=== PATIENT | female | born 1935 | race Caucasian/White ===

== ENCOUNTER 2021-02-20 07:49 | Inpatient (IN) | payer MEDICARE, BC ==
[2021-02-20] MEDS ORDERED: Denosumab 60 MG/1 ML Syringe SUBCUT SCH (14:00)
[2021-02-20] MEDS ORDERED: Warfarin Sliding Scale PO SCH (14:00)
[2021-02-20] MEDS: Acetaminophen 650 MG Tab.ER PO PRN (15:51)
--- NOTE | 2021-02-20 16:51 | PCM.HP.2 ---
H&P History of Present Illness - General Date of Service: 02/20/21 Admit Problem/Dx: Admission Diagnosis/Problem Admission Diagnosis/Problem Debility Source of Information: Patient, Family History Limitations: Reports: No Limitations - History of Present Illness Initial Comments - Free Text/Narative: This is an 85-year-old female that had a fall on the , sustained a C1 f racture and a basal skull fracture. She with some admitted to [facility] and was discharged yesterday. She is here for physical therapy. Her pain is uncontrolled. She still complains of some constipation. She has a history of DM 2,A. fib on long-term anticoagulation, hypothyroidism and multiple falls over the last winter. 7 Pain Score (Numeric/FACES): 7 - Related Data Allergies/Adverse Reactions: Allergies Allergy/AdvReac Type Severity Reaction Status Date / Time Iodinated Contrast Media Allergy Itching Verified 10/15/16 12:03 Sulfa (Sulfonamide Allergy Rash Verified 10/15/16 12:03 Antibiotics) Home Medications: Home Meds Levothyroxine [Synthroid] 50 mcg PO MOTUWETHFRSA@0600 09/09/15 [History] metFORMIN [Glucophage] 1,000 mg PO BIDMEALS 09/09/15 [History] Diltiazem [Cardizem CD] 240 mg PO DAILY #30 cap.cd 10/02/15 [Rx] Acetaminophen [Tylenol Arthritis] 650 mg PO Q4H PRN 02/20/21 [History] Cholecalciferol (Vitamin D3) [Vitamin D3] 400 unit PO BEDTIME 02/20/21 [History] Cyanocobalamin (Vitamin B-12) [B-12] 1,000 mcg PO DAILY 02/20/21 [History] Denosumab [Prolia] 60 mg SUBCUT Q180D 02/20/21 [History] Famotidine 20 mg PO BID 02/20/21 [History] Levothyroxine [Synthroid] 100 mcg PO MONROE@0600 02/20/21 [History] Losartan [Cozaar] 100 mg PO DAILY 02/20/21 [History] Magnesium Chloride [Slow-Mag] 1 tab PO BEDTIME 02/20/21 [History] Pravastatin Sodium 20 mg PO MOWEFR 02/20/21 [History] Triamcinolone Acetonide [Triamcinolone Acetonide 0.1% Crm] 1 applic TOP BID 02/20/21 [History] Warfarin Sliding Scale [Coumadin Sliding Scale] 2.5 - 5 mg PO DAILY 02/20/21 [History] Past Medical History HEENT History: Reports: Cataract Cardiovascular History: Reports: Afib, Hypertension Respiratory History: Reports: Asthma, Bronchitis, Recurrent Gastrointestinal History: Reports: GERD Genitourinary History: Reports: None, Urinary Incontinence [employer] 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: Musculoskeletal History: Reports: Fracture Other Musculoskeletal History: L ankle fx in past, Neurological History: Reports: Migraines, TIA, Other (See Below) Other Neuro History: once had a seizure years ago Psychiatric History: Reports: Depression Endocrine/Metabolic History: Reports: Diabetes, Type II, Hypothyroidism, Obesity/BMI 30+ Hematologic History: Reports: Blood Transfusion(s), Iron Deficiency Immunologic History: Reports: None Oncologic (Cancer) History: Reports: None Dermatologic History: Reports: None - Infectious Disease History Infectious Disease History: Reports: Shingles - Past Surgical History Head Surgeries/Procedures: Reports: None Cardiovascular Surgical History: Reports: None Respiratory Surgical History: Reports: None GI Surgical History: Reports: Appendectomy, Cholecystectomy, Colonoscopy Female Surgical History: Reports: None Neurological Surgical History: Reports: None Musculoskeletal Surgical History: Reports: Arthroscopic Knee, Knee Replacement Other Musculoskeletal Surgeries/Procedures:: R knee scope & rplmt, Social & Family History - Family History HEENT: Reports: Cataract Cardiac: Reports: Blood Clots/VTE/DVT OBGYN: Reports: Neurological: Reports: CVA Psychiatric: Reports: Depression Endocrine/Metabolic: Reports: Diabetes, type II, Hypothyroidism Oncologic: Reports: Breast, Lung, Skin - Tobacco Use Tobacco Use Status *Q: Never Tobacco User - Caffeine Use Caffeine Use: Reports: Coffee - Recreational Drug Use Recreational Drug Use: No H&P Review of Systems - Review of Systems: Review Of Systems: Comprehensive ROS is negative, except as noted in HPI. Exam - Exam Exam: See Below - Vital Signs Vital Signs: Last Vital Signs Temp 98.3 F 02/20/21 13:45 Pulse 79 02/20/21 13:45 Resp 20 02/20/21 13:45 BP 121/66 02/20/21 13:45 Pulse Ox 98 02/20/21 13:45 Weight: 86.908 kg - Exam General: Alert, Oriented HEENT: PERRLA Neck: Supple Lungs: Clear to Auscultation Cardiovascular: Regular Rate GI/Abdominal Exam: Normal Bowel Sounds, Soft, Non-Tender Rectal (Female) Exam: Deferred Extremities: Leg Pain. No: Pedal Edema Skin: Warm Neurological: Cranial Nerves Intact Neuro Extensive - Mental Status: Alert, Oriented x3 - Patient Data Lab Results Last 24 hrs: Laboratory Results - last 24 hr 02/20/21 Range/Units 15:15 PT 10.9 (9.0-11.1) sec INR 1.01 (1.00-1.24) Sepsis Event Note - Evaluation Sepsis Screening Result: No Definite Risk - Focused Exam Vital Signs: Vital Signs Temp Pulse Resp BP Pulse Ox 02/20/21 13:45 98.3 F 79 20 121/66 98 02/20/21 12:54 98.3 F 79 20 121/66 98 - Problem List (1) Weakness SNOMED Code(s): 60870787 ICD Code: R53.1 - WEAKNESS Status: Acute Current Visit: Yes (2) Fracture cervical vertebra-closed Status: Acute Current Visit: Yes Qualifiers: Cervical vertebra fracture level: C1 Fracture healing: with routine healing (3) A-fib SNOMED Code(s): 61689242 ICD Code: I48.91 - UNSPECIFIED ATRIAL FIBRILLATION Status: Acute Priority: High Current Visit: No Qualifiers: Atrial fibrillation type: paroxysmal Qualified Code(s): I48.0 - Paroxysmal atrial fibrillation (4) Diabetes type 2, controlled SNOMED Code(s): 10783244, 634979636 ICD Code: E11.9 - TYPE 2 DIABETES MELLITUS WITHOUT COMPLICATIONS Status: Chronic Current Visit: No Qualifiers: Diabetes mellitus 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 insulin use: without care home use (5) Hypertension associated with diabetes SNOMED Code(s): 96618578 ICD Code: E11.59 - TYPE 2 DIABETES MELLITUS WITH OTH CIRCULATORY COMPLICATIONS; I10 - ESSENTIAL (PRIMARY) HYPERTENSION Status: Chronic Current Visit: No (6) Hypothyroidism SNOMED Code(s): 11824676 ICD Code: E03.9 - HYPOTHYROIDISM, UNSPECIFIED Status: Chronic Current Visit: No Qualifiers: Hypothyroidism type: acquired Qualified Code(s): E03.9 - Hypothyroidism, unspecified Problem List Initiated/Reviewed/Updated: Yes Orders Last 24hrs: Active Orders 24 hr Category Date Time Status Patient Status [ADT] Routine ADT 02/20/21 13:45 Active Blood Glucose Check, Bedside [RC] TIDMEALS Care 02/20/21 16:49 Ordered Height and Weight [RC] WEEKLY Care 02/20/21 13:45 Active Oxygen Therapy [RC] PRN Care 02/20/21 13:45 Active Up With Assistance [RC] ASDIRECTED Care 02/20/21 13:45 Active VTE/DVT Education [RC] Per Unit Routine Care 02/20/21 13:45 Active Vital Signs [RC] DAILY Care 02/20/21 13:45 Active OT Evaluation and Treatment [CONS] Routine Cons 02/20/21 13:45 Active PT Evaluation and Treatment [CONS] Routine Cons 02/20/21 13:45 Active Consistent Carbohydrate Diet [DIET] Diet 02/20/21 Dinner Active INR,PT,PROTHROMBIN TIME [COAG] Routine Lab 02/24/21 06:00 Ordered Acetaminophen [Tylenol Arthritis Pain] Med 02/20/21 13:48 Active 650 mg PO Q4H PRN Cholecalciferol (Vitamin D3) [Vitamin D3] Med 02/20/21 21:00 Active 25 mcg PO BEDTIME Cyanocobalamin (Vitamin B12) [Vitamin B12] Med 02/21/21 09:00 Active 1,000 mcg PO DAILY Denosumab [Prolia] Med 02/20/21 14:00 Pending 60 mg SUBCUT Q180D Diltiazem [Dilacor XR] Med 02/21/21 09:00 Active 240 mg PO DAILY Famotidine [Pepcid] Med 02/20/21 21:00 Active 20 mg PO BID Levothyroxine [Synthroid] Med 02/22/21 06:00 Active 100 mcg PO MONROE@0600 Levothyroxine [Synthroid] Med 02/21/21 06:00 Active 50 mcg PO MOTUWETHFRSA@0600 Losartan [Cozaar] Med 02/21/21 09:00 Active 100 mg PO DAILY Magnesium Chloride [Mag-64] Med 02/20/21 21:00 Active 64 mg PO BEDTIME Pravastatin [Pravachol] Med 02/20/21 21:00 Active 20 mg PO MoWeFr@2100 Triamcinolone Acetonide [Triamcinolone Acetonide 0.1% Med 02/20/21 21:00 Active Crm] 0 gm TOP BID Warfarin Sliding Scale [Coumadin Sliding Scale] Med 02/20/21 14:00 Pending 1 each PO ASDIRECTED Warfarin [Coumadin] Med 02/21/21 16:00 Active 2.5 mg PO 1600 Warfarin [Coumadin] Med 02/23/21 16:00 Once 5 mg PO ONETIME ONE bisacodyL [Dulcolax] Med 02/20/21 16:49 Ordered 10 mg PO DAILY PRN metFORMIN [Glucophage] Med 02/20/21 18:00 Active 1,000 mg PO BIDMEALS oxyCODONE Med 02/20/21 16:49 Ordered 5 mg PO Q8H PRN Code Status [Resuscitation Status] Routine Resus Stat 02/20/21 16:49 Ordered Medication Orders Acetaminophen (Acetaminophen 650 Mg Tab.Er) 650 mg PO Q4H PRN PRN Reason: Pain Last Admin: 02/20/21 15:51 Dose: 650 mg Documented by: ZEKE Cholecalciferol (Cholecalciferol (Vitamin D3) 25 Mcg Tab) 25 mcg PO BEDTIME [facility] Cyanocobalamin (Cyanocobalamin (Vitamin B12) 1,000 Mcg Tab) 1,000 mcg PO DAILY [facility] Denosumab (Denosumab 60 Mg/1 Ml Syringe) 60 mg SUBCUT Q180D [facility] Diltiazem HCl (Diltiazem 240 Mg Cap.Er) 240 mg PO DAILY [facility] Famotidine (Famotidine 20 Mg Tab) 20 mg PO BID [facility] Levothyroxine Sodium (Levothyroxine 50 Mcg Tab) 50 mcg PO MOTUWETHFRSA@0600 [facility] Levothyroxine Sodium (Levothyroxine 100 Mcg Tab) 100 mcg PO MONROE@0600 [facility] Losartan Potassium (Losartan 100 Mg Tab) 100 mg PO DAILY [facility] Magnesium Chloride (Magnesium Chloride 64 Mg Tab.Er) 64 mg PO BEDTIME [facility] Metformin HCl (Metformin 1,000 Mg Tab) 1,000 mg PO BIDMEALS [facility] Pravastatin Sodium (Pravastatin 20 Mg Tab) 20 mg PO MoWeFr@2100 [facility] Triamcinolone Acetonide (Triamcinolone Acetonide 0.1% Crm 15 Gm Tube) 0 gm TOP BID [facility] Warfarin Sodium (Warfarin Sliding Scale) 1 each PO ASDIRECTED [facility] Warfarin Sodium (Warfarin 5 Mg Tab) 5 mg PO ONETIME ONE Stop: 02/23/21 16:01 Warfarin Sodium (Warfarin 2.5 Mg Tab) 2.5 mg PO 1600 [facility] Stop: 02/22/21 16:01 Assessment/Plan Comment:: Admit to [facility]. Start therapy. Control pain with oral narcotics. SSI for glycemic control
[2021-02-20] MEDS: Bisacodyl 5 MG Tab PO PRN (17:57)
[2021-02-20] MEDS: metFORMIN 1,000 MG Tab PO SCH (17:58)
[2021-02-20] MEDS: Famotidine 20 MG Tab PO SCH (21:44)
[2021-02-20] MEDS: Pravastatin 20 MG Tab PO SCH (21:44)
[2021-02-20] MEDS: Magnesium Chloride 64 MG Tab.ER PO SCH (21:44)
[2021-02-20] MEDS: Triamcinolone Acetonide 0.1% Crm 15 GM Tube TOP SCH (21:45)
[2021-02-20] MEDS: Cholecalciferol (Vitamin D3) 25 MCG Tab PO SCH (21:46)
[2021-02-21] MEDS: Levothyroxine 50 MCG Tab PO SCH (06:46)
[2021-02-21] MEDS: metFORMIN 1,000 MG Tab PO SCH ×2 (08:06→17:04)
[2021-02-21] MEDS: Losartan 100 MG Tab PO SCH (08:07)
[2021-02-21] MEDS: Diltiazem 240 MG Cap.ER PO SCH (08:08)
[2021-02-21] MEDS: Triamcinolone Acetonide 0.1% Crm 15 GM Tube TOP SCH ×2 (08:08→20:24)
[2021-02-21] MEDS: Famotidine 20 MG Tab PO SCH ×2 (08:08→20:23)
[2021-02-21] MEDS: Cyanocobalamin (Vitamin B12) 1,000 MCG Tab PO SCH (08:10)
[2021-02-21] MEDS: Bisacodyl 5 MG Tab PO PRN (08:15)
[2021-02-21] MEDS ORDERED: Warfarin Sliding Scale PO SCH (09:00)
[2021-02-21] MEDS: Acetaminophen 650 MG Tab.ER PO PRN (11:00)
[2021-02-21] MEDS: Ondansetron 4 MG Tab.DIS PO PRN (12:24)
[2021-02-21] MEDS: Warfarin 2.5 MG Tab PO SCH (16:22)
[2021-02-21] MEDS: Magnesium Chloride 64 MG Tab.ER PO SCH (20:23)
[2021-02-21] MEDS: Cholecalciferol (Vitamin D3) 25 MCG Tab PO SCH (20:24)
[2021-02-22] MEDS: Acetaminophen 650 MG Tab.ER PO PRN ×2 (02:45→10:01)
[2021-02-22] MEDS: Levothyroxine 100 MCG Tab PO SCH (06:29)
[2021-02-22] MEDS: metFORMIN 1,000 MG Tab PO SCH ×2 (08:25→18:50)
[2021-02-22] MEDS: Losartan 100 MG Tab PO SCH (08:26)
[2021-02-22] MEDS: Famotidine 20 MG Tab PO SCH ×2 (08:26→20:02)
[2021-02-22] MEDS: Diltiazem 240 MG Cap.ER PO SCH (08:26)
[2021-02-22] MEDS: Triamcinolone Acetonide 0.1% Crm 15 GM Tube TOP SCH ×2 (08:27→20:03)
[2021-02-22] MEDS: Cyanocobalamin (Vitamin B12) 1,000 MCG Tab PO SCH (08:28)
[2021-02-22] MEDS: Warfarin 2.5 MG Tab PO SCH (15:49)
[2021-02-22] MEDS: Magnesium Chloride 64 MG Tab.ER PO SCH (20:02)
[2021-02-22] MEDS: Cholecalciferol (Vitamin D3) 25 MCG Tab PO SCH (20:05)
[2021-02-23] MEDS: Acetaminophen 650 MG Tab.ER PO PRN ×2 (02:09→20:30)
[2021-02-23] MEDS: Levothyroxine 50 MCG Tab PO SCH (06:18)
[2021-02-23] MEDS: metFORMIN 1,000 MG Tab PO SCH ×2 (08:28→17:12)
[2021-02-23] MEDS: Losartan 100 MG Tab PO SCH (08:29)
[2021-02-23] MEDS: Famotidine 20 MG Tab PO SCH ×2 (08:30→20:27)
[2021-02-23] MEDS: Cyanocobalamin (Vitamin B12) 1,000 MCG Tab PO SCH (08:30)
[2021-02-23] MEDS: Diltiazem 240 MG Cap.ER PO SCH (08:30)
[2021-02-23] MEDS: Triamcinolone Acetonide 0.1% Crm 15 GM Tube TOP SCH ×2 (08:33→20:28)
[2021-02-23] MEDS: oxyCODONE 5 MG Tab PO PRN ×2 (13:16→23:24)
[2021-02-23] MEDS ORDERED: Warfarin 5 MG Tab PO ONE (16:00)
[2021-02-23] MEDS: Pravastatin 20 MG Tab PO SCH (20:27)
[2021-02-23] MEDS: Magnesium Chloride 64 MG Tab.ER PO SCH (20:27)
[2021-02-23] MEDS: Cholecalciferol (Vitamin D3) 25 MCG Tab PO SCH (20:29)
[2021-02-24] MEDS: Levothyroxine 50 MCG Tab PO SCH (05:27)
[2021-02-24] MEDS: Acetaminophen 650 MG Tab.ER PO PRN (05:27)
[2021-02-24] MEDS: Triamcinolone Acetonide 0.1% Crm 15 GM Tube TOP SCH ×2 (08:08→20:26)
[2021-02-24] MEDS: metFORMIN 1,000 MG Tab PO SCH ×2 (08:09→17:35)
[2021-02-24] MEDS: Losartan 100 MG Tab PO SCH (08:10)
[2021-02-24] MEDS: Famotidine 20 MG Tab PO SCH ×2 (08:10→20:25)
[2021-02-24] MEDS: Diltiazem 240 MG Cap.ER PO SCH (08:10)
[2021-02-24] MEDS: Cyanocobalamin (Vitamin B12) 1,000 MCG Tab PO SCH (08:10)
[2021-02-24] MEDS: Warfarin 5 MG Tab PO SCH (16:10)
[2021-02-24] MEDS: Magnesium Chloride 64 MG Tab.ER PO SCH (20:25)
[2021-02-24] MEDS: Cholecalciferol (Vitamin D3) 25 MCG Tab PO SCH (20:26)
[2021-02-25] MEDS: Levothyroxine 50 MCG Tab PO SCH (06:26)
[2021-02-25] MEDS: Losartan 100 MG Tab PO SCH (08:35)
[2021-02-25] MEDS: Diltiazem 240 MG Cap.ER PO SCH (08:35)
[2021-02-25] MEDS: Famotidine 20 MG Tab PO SCH ×2 (08:36→20:09)
[2021-02-25] MEDS: Cyanocobalamin (Vitamin B12) 1,000 MCG Tab PO SCH (08:37)
[2021-02-25] MEDS: metFORMIN 1,000 MG Tab PO SCH ×2 (08:39→17:09)
[2021-02-25] MEDS: Triamcinolone Acetonide 0.1% Crm 15 GM Tube TOP SCH ×2 (08:39→20:10)
[2021-02-25] MEDS: Ondansetron 4 MG Tab.DIS PO PRN (11:14)
[2021-02-25] MEDS: Warfarin 5 MG Tab PO SCH (17:06)
[2021-02-25] MEDS: Pravastatin 20 MG Tab PO SCH (20:09)
[2021-02-25] MEDS: Magnesium Chloride 64 MG Tab.ER PO SCH (20:09)
[2021-02-25] MEDS: Cholecalciferol (Vitamin D3) 25 MCG Tab PO SCH (20:10)
[2021-02-26] MEDS: Levothyroxine 50 MCG Tab PO SCH (06:34)
[2021-02-26] MEDS: Famotidine 20 MG Tab PO SCH ×2 (08:45→20:50)
[2021-02-26] MEDS: Cyanocobalamin (Vitamin B12) 1,000 MCG Tab PO SCH (08:46)
[2021-02-26] MEDS: metFORMIN 1,000 MG Tab PO SCH ×2 (08:46→17:19)
[2021-02-26] MEDS: Losartan 100 MG Tab PO SCH (08:46)
[2021-02-26] MEDS: Triamcinolone Acetonide 0.1% Crm 15 GM Tube TOP SCH ×2 (08:46→20:51)
[2021-02-26] MEDS: Diltiazem 240 MG Cap.ER PO SCH (08:46)
[2021-02-26] MEDS: Acetaminophen 650 MG Tab.ER PO PRN ×2 (14:20→20:51)
[2021-02-26] MEDS: Warfarin 5 MG Tab PO SCH (16:35)
[2021-02-26] MEDS: Magnesium Chloride 64 MG Tab.ER PO SCH (20:50)
[2021-02-26] MEDS: Cholecalciferol (Vitamin D3) 25 MCG Tab PO SCH (20:52)
[2021-02-27] MEDS: Levothyroxine 50 MCG Tab PO SCH (06:05)
[2021-02-27] MEDS: metFORMIN 1,000 MG Tab PO SCH ×2 (08:25→18:18)
[2021-02-27] MEDS: Famotidine 20 MG Tab PO SCH ×2 (08:32→20:47)
[2021-02-27] MEDS: Diltiazem 240 MG Cap.ER PO SCH (08:33)
[2021-02-27] MEDS: Losartan 100 MG Tab PO SCH (08:33)
[2021-02-27] MEDS: Cyanocobalamin (Vitamin B12) 1,000 MCG Tab PO SCH (08:33)
[2021-02-27] MEDS: Triamcinolone Acetonide 0.1% Crm 15 GM Tube TOP SCH ×2 (08:33→20:48)
[2021-02-27] MEDS ORDERED: Warfarin 2.5 MG Tab PO SCH (16:00)
[2021-02-27] MEDS: Magnesium Chloride 64 MG Tab.ER PO SCH (20:47)
[2021-02-27] MEDS: Pravastatin 20 MG Tab PO SCH (20:48)
[2021-02-27] MEDS: Cholecalciferol (Vitamin D3) 25 MCG Tab PO SCH (20:49)
[2021-02-28] MEDS: Levothyroxine 50 MCG Tab PO SCH (05:08)
[2021-02-28] MEDS: Famotidine 20 MG Tab PO SCH ×2 (09:13→21:03)
[2021-02-28] MEDS: Losartan 100 MG Tab PO SCH (09:13)
[2021-02-28] MEDS: Diltiazem 240 MG Cap.ER PO SCH (09:13)
[2021-02-28] MEDS: Cyanocobalamin (Vitamin B12) 1,000 MCG Tab PO SCH (09:13)
[2021-02-28] MEDS: metFORMIN 1,000 MG Tab PO SCH ×2 (09:14→17:42)
[2021-02-28] MEDS: Triamcinolone Acetonide 0.1% Crm 15 GM Tube TOP SCH ×2 (09:15→21:04)
[2021-02-28] MEDS: Warfarin 5 MG Tab PO SCH (17:42)
[2021-02-28] MEDS: Cholecalciferol (Vitamin D3) 25 MCG Tab PO SCH (21:03)
[2021-02-28] MEDS: Magnesium Chloride 64 MG Tab.ER PO SCH (21:03)
[2021-03-01] MEDS: Levothyroxine 100 MCG Tab PO SCH (05:16)
[2021-03-01] MEDS: Acetaminophen 650 MG Tab.ER PO PRN ×2 (06:29→20:27)
[2021-03-01] MEDS: metFORMIN 1,000 MG Tab PO SCH ×2 (08:43→17:24)
[2021-03-01] MEDS: Losartan 100 MG Tab PO SCH (08:44)
[2021-03-01] MEDS: Diltiazem 240 MG Cap.ER PO SCH (08:44)
[2021-03-01] MEDS: Famotidine 20 MG Tab PO SCH ×2 (08:44→20:26)
[2021-03-01] MEDS: Cyanocobalamin (Vitamin B12) 1,000 MCG Tab PO SCH (08:45)
[2021-03-01] MEDS: Triamcinolone Acetonide 0.1% Crm 15 GM Tube TOP SCH ×2 (08:45→20:26)
[2021-03-01] MEDS ORDERED: Warfarin 2 MG Tab PO ONE (16:00)
[2021-03-01] MEDS: Magnesium Chloride 64 MG Tab.ER PO SCH (20:25)
[2021-03-01] MEDS: Cholecalciferol (Vitamin D3) 25 MCG Tab PO SCH (20:27)
[2021-03-02] MEDS: Levothyroxine 50 MCG Tab PO SCH (05:04)
[2021-03-02] MEDS: Triamcinolone Acetonide 0.1% Crm 15 GM Tube TOP SCH ×2 (08:28→21:19)
[2021-03-02] MEDS: Diltiazem 240 MG Cap.ER PO SCH (08:29)
[2021-03-02] MEDS: metFORMIN 1,000 MG Tab PO SCH ×2 (08:29→17:41)
[2021-03-02] MEDS: Cyanocobalamin (Vitamin B12) 1,000 MCG Tab PO SCH (08:29)
[2021-03-02] MEDS: Losartan 100 MG Tab PO SCH (08:29)
[2021-03-02] MEDS: Famotidine 20 MG Tab PO SCH ×2 (08:29→21:18)
--- NOTE | 2021-03-02 09:31 | PCM.PN ---
- General Info Date of Service: 03/02/21 Admission Dx/Problem (Free Text): Patient is doing well. She has her pain is controlled on her back. She has no chest pain, shortness breath, fevers or chills. - Patient Data Vitals - Most Recent: Last Vital Signs Temp 96.9 F 03/02/21 08:00 Pulse 91 03/02/21 08:00 Resp 16 03/02/21 08:00 BP 127/69 03/02/21 08:29 Pulse Ox 99 03/02/21 08:00 Orthostatic Blood Pressure [ 96/57 Standing] Weight - Most Recent: 187 lb Lab Results Last 24 Hours: Laboratory Results - last 24 hr 03/01/21 03/01/21 03/02/21 Range/Units 11:25 17:22 06:13 PT (9.0-11.1) sec INR (1.00-1.24) POC Glucose 161 H 107 102 (80-116) mg/dL 03/02/21 Range/Units 06:25 PT 35.6 H* (9.0-11.1) sec INR 3.59 H (1.00-1.24) POC Glucose (80-116) mg/dL Med Orders - Current: Current Medications Acetaminophen (Acetaminophen 650 Mg Tab.Er) 650 mg PO Q4H PRN PRN Reason: Pain Last Admin: 03/01/21 20:27 Dose: 650 mg Documented by: Bisacodyl (Bisacodyl 5 Mg Tab) 10 mg PO DAILY PRN PRN Reason: Constipation Last Admin: 02/21/21 08:15 Dose: 10 mg Documented by: Cholecalciferol (Cholecalciferol (Vitamin D3) 25 Mcg Tab) 25 mcg PO BEDTIME [facility] Last Admin: 03/01/21 20:27 Dose: 25 mcg Documented by: Cyanocobalamin (Cyanocobalamin (Vitamin B12) 1,000 Mcg Tab) 1,000 mcg PO DAILY [facility] Last Admin: 03/02/21 08:29 Dose: 1,000 mcg Documented by: Diltiazem HCl (Diltiazem 240 Mg Cap.Er) 240 mg PO DAILY [facility] Last Admin: 03/02/21 08:29 Dose: 240 mg Documented by: Famotidine (Famotidine 20 Mg Tab) 20 mg PO BID [facility] Last Admin: 03/02/21 08:29 Dose: 20 mg Documented by: Levothyroxine Sodium (Levothyroxine 50 Mcg Tab) 50 mcg PO MOTUWETHFRSA@0600 [facility] Last Admin: 03/02/21 05:04 Dose: 50 mcg Documented by: Levothyroxine Sodium (Levothyroxine 100 Mcg Tab) 100 mcg PO MONROE@0600 [facility] Last Admin: 03/01/21 05:16 Dose: 100 mcg Documented by: Losartan Potassium (Losartan 100 Mg Tab) 100 mg PO DAILY [facility] Last Admin: 03/02/21 08:29 Dose: 100 mg Documented by: Magnesium Chloride (Magnesium Chloride 64 Mg Tab.Er) 64 mg PO BEDTIME [facility] Last Admin: 03/01/21 20:25 Dose: 64 mg Documented by: Metformin HCl (Metformin 1,000 Mg Tab) 1,000 mg PO BIDMEALS [facility] Last Admin: 03/02/21 08:29 Dose: 1,000 mg Documented by: Ondansetron HCl (Ondansetron 4 Mg Tab.Dis) 4 mg PO Q8H PRN PRN Reason: Nausea Last Admin: 02/25/21 11:14 Dose: 4 mg Documented by: Pravastatin Sodium (Pravastatin 20 Mg Tab) 20 mg PO MoWeFr@2100 [facility] Last Admin: 02/27/21 20:48 Dose: 20 mg Documented by: Triamcinolone Acetonide (Triamcinolone Acetonide 0.1% Crm 15 Gm Tube) 0 gm TOP BID [facility] Last Admin: 03/02/21 08:28 Dose: Not Given Documented by: Warfarin Sodium (Warfarin Sliding Scale) 1 each PO ASDIRECTED [facility] Discontinued Medications Denosumab (Denosumab 60 Mg/1 Ml Syringe) 60 mg SUBCUT Q180D [facility] Oxycodone HCl (Oxycodone 5 Mg Tab) 5 mg PO Q8H PRN PRN Reason: Breakthrough Pain Last Admin: 02/23/21 23:24 Dose: 5 mg Documented by: Warfarin Sodium (Warfarin 5 Mg Tab) 5 mg PO ONETIME ONE Stop: 02/23/21 16:01 Last Admin: 02/23/21 16:06 Dose: 5 mg Documented by: Warfarin Sodium (Warfarin 2.5 Mg Tab) 2.5 mg PO 1600 [facility] Stop: 02/22/21 16:01 Last Admin: 02/22/21 15:49 Dose: 2.5 mg Documented by: Warfarin Sodium (Warfarin 5 Mg Tab) 5 mg PO DAILY@1600 [facility] Last Admin: 02/25/21 17:06 Dose: 5 mg Documented by: Warfarin Sodium (Warfarin 5 Mg Tab) 5 mg PO SuTuThSa@1600 [facility] Last Admin: 02/28/21 17:42 Dose: 5 mg Documented by: Warfarin Sodium (Warfarin 2.5 Mg Tab) 2.5 mg PO MoWeFr@1600 [facility] Last Admin: 02/27/21 16:26 Dose: 2.5 mg Documented by: Warfarin Sodium (Warfarin 2 Mg Tab) 4 mg PO ONETIME ONE Stop: 03/01/21 16:01 Warfarin Sodium (Warfarin 1 Mg Tab) Confirm Administered Dose 4 mg .ROUTE .STK- MED ONE Stop: 03/01/21 15:51 Last Admin: 03/01/21 15:53 Dose: Not Given Documented by: Warfarin Sodium (Warfarin 1 Mg Tab) 4 mg PO ONETIME ONE Stop: 03/01/21 16:01 Last Admin: 03/01/21 15:57 Dose: 4 mg Documented by: - Exam General: Alert, Oriented Neck: Other (Hard collar in place on the neck) Lungs: Clear to Auscultation, Normal Respiratory Effort Cardiovascular: Regular Rate, Regular Rhythm - Patient Data Lab Results Last 24 hrs: Laboratory Results - last 24 hr 03/01/21 03/01/21 03/02/21 Range/Units 11:25 17:22 06:13 PT (9.0-11.1) sec INR (1.00-1.24) POC Glucose 161 H 107 102 (80-116) mg/dL 03/02/21 Range/Units 06:25 PT 35.6 H* (9.0-11.1) sec INR 3.59 H (1.00-1.24) POC Glucose (80-116) mg/dL Sepsis Event Note - Evaluation Sepsis Screening Result: No Definite Risk - Focused Exam Vital Signs: Vital Signs Temp Pulse Resp BP BP Pulse Ox 03/02/21 08:29 127/69 03/02/21 08:00 96.9 F 91 16 127/69 99 - Problem List & Annotations (1) Fracture cervical vertebra-closed Status: Acute Current Visit: Yes Qualifiers: Cervical vertebra fracture level: C1 Fracture healing: with routine healing (2) Weakness SNOMED Code(s): 50167423 Code(s): R53.1 - WEAKNESS Status: Acute Current Visit: Yes - Problem List Review Problem List Initiated/Reviewed/Updated: Yes - My Orders Last 24 Hours: My Active Orders 03/03/21 09:23 INR,PT,PROTHROMBIN TIME [COAG] Routine - Plan Plan:: Continue current care. l
[2021-03-02] MEDS: Acetaminophen 650 MG Tab.ER PO PRN ×3 (09:35→21:20)
[2021-03-02] MEDS: Magnesium Chloride 64 MG Tab.ER PO SCH (21:18)
[2021-03-02] MEDS: Pravastatin 20 MG Tab PO SCH (21:19)
[2021-03-02] MEDS: Cholecalciferol (Vitamin D3) 25 MCG Tab PO SCH (21:20)
[2021-03-03] MEDS: Levothyroxine 50 MCG Tab PO SCH (05:50)
[2021-03-03] MEDS: metFORMIN 1,000 MG Tab PO SCH ×2 (08:00→17:09)
[2021-03-03] MEDS: Cyanocobalamin (Vitamin B12) 1,000 MCG Tab PO SCH (08:00)
[2021-03-03] MEDS: Triamcinolone Acetonide 0.1% Crm 15 GM Tube TOP SCH ×2 (08:00→21:17)
[2021-03-03] MEDS: Diltiazem 240 MG Cap.ER PO SCH (08:00)
[2021-03-03] MEDS: Losartan 100 MG Tab PO SCH (08:00)
[2021-03-03] MEDS: Famotidine 20 MG Tab PO SCH ×2 (08:00→21:16)
[2021-03-03] MEDS: Magnesium Chloride 64 MG Tab.ER PO SCH (21:16)
[2021-03-03] MEDS: Cholecalciferol (Vitamin D3) 25 MCG Tab PO SCH (21:17)
[2021-03-04] MEDS: Acetaminophen 650 MG Tab.ER PO PRN ×2 (02:37→23:30)
[2021-03-04] MEDS: Levothyroxine 50 MCG Tab PO SCH (05:51)
[2021-03-04] MEDS: Diltiazem 240 MG Cap.ER PO SCH (08:00)
[2021-03-04] MEDS: Triamcinolone Acetonide 0.1% Crm 15 GM Tube TOP SCH ×2 (08:00→20:03)
[2021-03-04] MEDS: metFORMIN 1,000 MG Tab PO SCH ×2 (08:00→17:35)
[2021-03-04] MEDS: Famotidine 20 MG Tab PO SCH ×2 (08:00→20:03)
[2021-03-04] MEDS: Cyanocobalamin (Vitamin B12) 1,000 MCG Tab PO SCH (08:01)
[2021-03-04] MEDS: Losartan 100 MG Tab PO SCH (08:01)
[2021-03-04] MEDS: Warfarin 2.5 MG Tab PO SCH (15:48)
[2021-03-04] MEDS: Pravastatin 20 MG Tab PO SCH (20:03)
[2021-03-04] MEDS: Magnesium Chloride 64 MG Tab.ER PO SCH (20:03)
[2021-03-04] MEDS: Cholecalciferol (Vitamin D3) 25 MCG Tab PO SCH (20:03)
[2021-03-05] MEDS: Levothyroxine 50 MCG Tab PO SCH (05:04)
[2021-03-05] MEDS ORDERED: HYDROcodone/Ibuprofen 7.5-200 MG Tab PO PRN (08:58)
[2021-03-05] MEDS: Triamcinolone Acetonide 0.1% Crm 15 GM Tube TOP SCH ×2 (09:03→20:12)
[2021-03-05] MEDS: metFORMIN 1,000 MG Tab PO SCH ×2 (09:04→17:53)
[2021-03-05] MEDS: Famotidine 20 MG Tab PO SCH ×2 (09:05→20:11)
[2021-03-05] MEDS: Losartan 100 MG Tab PO SCH (09:05)
[2021-03-05] MEDS: Diltiazem 240 MG Cap.ER PO SCH (09:05)
[2021-03-05] MEDS: Cyanocobalamin (Vitamin B12) 1,000 MCG Tab PO SCH (09:06)
[2021-03-05] MEDS: Acetaminophen 650 MG Tab.ER PO PRN (13:20)
[2021-03-05] MEDS: Warfarin 2.5 MG Tab PO SCH (16:51)
[2021-03-05] MEDS: Magnesium Chloride 64 MG Tab.ER PO SCH (20:11)
[2021-03-05] MEDS: Cholecalciferol (Vitamin D3) 25 MCG Tab PO SCH (20:12)
[2021-03-06] MEDS: Levothyroxine 50 MCG Tab PO SCH (05:41)
[2021-03-06] MEDS: Losartan 100 MG Tab PO SCH (08:10)
[2021-03-06] MEDS: metFORMIN 1,000 MG Tab PO SCH ×2 (08:10→17:45)
[2021-03-06] MEDS: Diltiazem 240 MG Cap.ER PO SCH (08:10)
[2021-03-06] MEDS: Famotidine 20 MG Tab PO SCH ×2 (08:11→20:37)
[2021-03-06] MEDS: Cyanocobalamin (Vitamin B12) 1,000 MCG Tab PO SCH (08:11)
[2021-03-06] MEDS: Triamcinolone Acetonide 0.1% Crm 15 GM Tube TOP SCH ×2 (08:11→20:36)
[2021-03-06] MEDS ORDERED: HYDROcodone/Ibuprofen 7.5-200 MG Tab PO ONE (09:00)
--- NOTE | 2021-03-06 11:13 | PN ---
DATE SEEN: 03/06/2021 HISTORY: Lima is an 85-year-old woman who sustained a fall at her home on approximately February 03, 2021. She was brought to [facility] in [place] where she was found to have a C1 cervical fracture with minimal displacement and a basilar skull fracture. She was placed in a cervical collar, treated conservatively, and was discharged for admission to swing bed at [facility] on 02/17. Ms. Duvall is examined in her room today at [facility]. She is up in a chair, very alert, comfortable, sitting. She is a good historian. PHYSICAL EXAMINATION: VITAL SIGNS: Blood pressure 136/70, pulse 92 and regular, respirations normal, temperature 98. SKIN: Shows a dressing over her left chin. This was removed revealing a 2 x 6 cm large open area full-thickness skin filled with clot. There is no inflammation, purulence, or sign of infection. This was redressed with gauze and ACEwrap. NECK: She is in a cervical collar. LUNGS: Clear. HEART: Irregular, in atrial fib. ABDOMEN: Soft. EXTREMITIES: Showed no edema at the ankles. NEUROLOGIC: Motor exam appeared symmetric. ASSESSMENT: 1. Cervical and basilar skull fractures from fall on 02/03, healing. 2. Traumatic full-thickness skin ulcer, left chin, clean. 3. Chronic atrial fibrillation, on anticoagulation. 4. Chronic hypothyroidism. 5. History of type 2 diabetes. 6. Hyperlipidemia. 7. Palliative care measures. PLAN: Ms. Duvall has a followup appointment with Neurosurgery at [facility] today, then will return here for further recuperation. Her plans are to be discharged to [facility] once she has regained adequate strength and mobility. /[id number] GUERITA/GOLDEN
[2021-03-06] MEDS ORDERED: Warfarin 2.5 MG Tab PO ONE (16:00)
[2021-03-06] MEDS: Cholecalciferol (Vitamin D3) 25 MCG Tab PO SCH (20:37)
[2021-03-06] MEDS: Magnesium Chloride 64 MG Tab.ER PO SCH (20:37)
[2021-03-06] MEDS: Pravastatin 20 MG Tab PO SCH (20:37)
[2021-03-07] MEDS: Levothyroxine 50 MCG Tab PO SCH (06:36)
[2021-03-07] MEDS: Triamcinolone Acetonide 0.1% Crm 15 GM Tube TOP SCH ×2 (08:28→20:44)
[2021-03-07] MEDS: metFORMIN 1,000 MG Tab PO SCH ×2 (08:29→17:24)
[2021-03-07] MEDS: Losartan 100 MG Tab PO SCH (08:29)
[2021-03-07] MEDS: Cyanocobalamin (Vitamin B12) 1,000 MCG Tab PO SCH (08:30)
[2021-03-07] MEDS: Diltiazem 240 MG Cap.ER PO SCH (08:30)
[2021-03-07] MEDS: Famotidine 20 MG Tab PO SCH ×2 (08:30→20:40)
[2021-03-07] MEDS ORDERED: Warfarin 2.5 MG Tab PO ONE (16:00)
[2021-03-07] MEDS: Magnesium Chloride 64 MG Tab.ER PO SCH (20:40)
[2021-03-07] MEDS: Cholecalciferol (Vitamin D3) 25 MCG Tab PO SCH (20:45)
[2021-03-07] MEDS: Acetaminophen 650 MG Tab.ER PO PRN (20:50)
[2021-03-08] MEDS: Levothyroxine 100 MCG Tab PO SCH (05:52)
[2021-03-08] MEDS: Losartan 100 MG Tab PO SCH (08:24)
[2021-03-08] MEDS: metFORMIN 1,000 MG Tab PO SCH ×2 (08:24→17:15)
[2021-03-08] MEDS: Cyanocobalamin (Vitamin B12) 1,000 MCG Tab PO SCH (08:25)
[2021-03-08] MEDS: Triamcinolone Acetonide 0.1% Crm 15 GM Tube TOP SCH ×2 (08:25→21:01)
[2021-03-08] MEDS: Diltiazem 240 MG Cap.ER PO SCH (08:25)
[2021-03-08] MEDS: Famotidine 20 MG Tab PO SCH ×2 (08:25→21:07)
[2021-03-08] MEDS: Acetaminophen 650 MG Tab.ER PO PRN ×2 (14:25→23:09)
[2021-03-08] MEDS ORDERED: Warfarin 2.5 MG Tab PO ONE (16:00)
[2021-03-08] MEDS: Magnesium Chloride 64 MG Tab.ER PO SCH (21:07)
[2021-03-08] MEDS: Cholecalciferol (Vitamin D3) 25 MCG Tab PO SCH (21:07)
[2021-03-09] MEDS: Levothyroxine 50 MCG Tab PO SCH (05:55)
[2021-03-09] MEDS: Cyanocobalamin (Vitamin B12) 1,000 MCG Tab PO SCH (08:17)
[2021-03-09] MEDS: metFORMIN 1,000 MG Tab PO SCH ×2 (08:17→17:39)
[2021-03-09] MEDS: Losartan 100 MG Tab PO SCH (08:18)
[2021-03-09] MEDS: Diltiazem 240 MG Cap.ER PO SCH (08:18)
[2021-03-09] MEDS: Famotidine 20 MG Tab PO SCH ×2 (08:18→21:06)
[2021-03-09] MEDS: Triamcinolone Acetonide 0.1% Crm 15 GM Tube TOP SCH ×2 (08:19→21:07)
[2021-03-09] MEDS: Warfarin 2.5 MG Tab PO SCH (15:51)
[2021-03-09] MEDS: Acetaminophen 650 MG Tab.ER PO PRN ×2 (15:51→21:11)
[2021-03-09] MEDS: Magnesium Chloride 64 MG Tab.ER PO SCH (21:06)
[2021-03-09] MEDS: Pravastatin 20 MG Tab PO SCH (21:07)
[2021-03-09] MEDS: Cholecalciferol (Vitamin D3) 25 MCG Tab PO SCH (21:08)
[2021-03-10] MEDS: Acetaminophen 650 MG Tab.ER PO PRN ×2 (02:09→06:45)
[2021-03-10] MEDS: Levothyroxine 50 MCG Tab PO SCH (05:59)
[2021-03-10] MEDS: Losartan 100 MG Tab PO SCH (07:59)
[2021-03-10] MEDS: metFORMIN 1,000 MG Tab PO SCH ×2 (07:59→17:13)
[2021-03-10] MEDS: Famotidine 20 MG Tab PO SCH ×2 (08:00→20:56)
[2021-03-10] MEDS: Diltiazem 240 MG Cap.ER PO SCH (08:00)
[2021-03-10] MEDS: Triamcinolone Acetonide 0.1% Crm 15 GM Tube TOP SCH ×2 (08:01→20:57)
[2021-03-10] MEDS: Cyanocobalamin (Vitamin B12) 1,000 MCG Tab PO SCH (08:01)
[2021-03-10] MEDS: Warfarin 2.5 MG Tab PO SCH (15:52)
[2021-03-10] MEDS: Cholecalciferol (Vitamin D3) 25 MCG Tab PO SCH (20:56)
[2021-03-10] MEDS: Magnesium Chloride 64 MG Tab.ER PO SCH (20:56)
[2021-03-10] MEDS: Acetaminophen 325 MG Tab PO SCH (20:57)
[2021-03-11] MEDS: Levothyroxine 50 MCG Tab PO SCH (06:30)
[2021-03-11] MEDS: Triamcinolone Acetonide 0.1% Crm 15 GM Tube TOP SCH ×2 (08:16→20:11)
[2021-03-11] MEDS: Losartan 100 MG Tab PO SCH (08:18)
[2021-03-11] MEDS: metFORMIN 1,000 MG Tab PO SCH ×2 (08:18→17:13)
[2021-03-11] MEDS: Famotidine 20 MG Tab PO SCH ×2 (08:19→20:10)
[2021-03-11] MEDS: Diltiazem 240 MG Cap.ER PO SCH (08:19)
[2021-03-11] MEDS: Acetaminophen 325 MG Tab PO SCH ×2 (08:22→20:09)
[2021-03-11] MEDS: Cyanocobalamin (Vitamin B12) 1,000 MCG Tab PO SCH (08:22)
[2021-03-11] MEDS: Warfarin 2.5 MG Tab PO SCH (16:16)
[2021-03-11] MEDS: Cholecalciferol (Vitamin D3) 25 MCG Tab PO SCH (20:10)
[2021-03-11] MEDS: Pravastatin 20 MG Tab PO SCH (20:10)
[2021-03-11] MEDS: Magnesium Chloride 64 MG Tab.ER PO SCH (20:10)
[2021-03-12] MEDS: Levothyroxine 50 MCG Tab PO SCH (05:39)
[2021-03-12 07:55] VITALS: PULSE 91
[2021-03-12] MEDS: Triamcinolone Acetonide 0.1% Crm 15 GM Tube TOP SCH ×2 (07:59→20:38)
[2021-03-12] MEDS: Diltiazem 240 MG Cap.ER PO SCH (08:00)
[2021-03-12] MEDS: Losartan 100 MG Tab PO SCH (08:00)
[2021-03-12] MEDS: metFORMIN 1,000 MG Tab PO SCH ×2 (08:00→17:11)
[2021-03-12] MEDS: Acetaminophen 325 MG Tab PO SCH ×2 (08:01→20:39)
[2021-03-12] MEDS: Cyanocobalamin (Vitamin B12) 1,000 MCG Tab PO SCH (08:01)
[2021-03-12] MEDS: Famotidine 20 MG Tab PO SCH ×2 (08:01→20:38)
--- NOTE | 2021-03-12 12:27 | PN ---
DATE SEEN: 03/12/2021 HISTORY: Ms. Duvall is an 85-year-old woman who sustained a fall resulting in a cervical fracture on February 03, 2021. She had associated basilar skull fracture. She was seen by Neurosurgery, treated with a cervical collar with a planned 3- month duration. She has remained stable neurologically. In addition, she sustained a traumatic laceration on her left lower leg tubbs area. This has been treated with dressings as well. Other past history includes chronic AFib, hypothyroidism, type 2 diabetes, and hyperlipidemia. PHYSICAL EXAMINATION: GENERAL: She is alert and comfortable. VITAL SIGNS: Blood pressure 148/72, pulse 91 and irregular in AFib pattern, O2 saturation 96% on room air, and temperature 98.1. NEUROLOGIC: Reveals her to be alert, oriented. She is a good historian. She moves her extremities equally and she is up walking in the room without deficits. SKIN: On examination of her left tubbs yesterday revealed the full- thickness injury with organized clot overlying 3/4 of the wound and a serosanguineous area, proximal medial laceration. This was not inflamed and showed no sign of infection and did not appear to require debridement. ASSESSMENT: 1. Fall with cervical fracture and basilar skull fracture, neurologically stable, in a cervical collar for 2 more months. 2. Full-thickness laceration, left lower leg tubbs. 3. Atrial fibrillation, on anticoagulation with warfarin. 4. Type 2 diabetes. 5. Hypothyroidism. 6. Hyperlipidemia. PLAN: She is scheduled to go home tomorrow for further recuperation at home. Home Health Care will see her for dressing changes to the leg weekly and p.r.n. with a semipermeable membrane dressing. She is to follow up with Dr. Adler in his clinic in approximately 2 weeks and keep her regularly scheduled neurosurgical followup in 1 month. /[id number] GUERITA/GOLDEN
[2021-03-12] MEDS: Warfarin 2.5 MG Tab PO SCH (15:42)
[2021-03-12] MEDS: Magnesium Chloride 64 MG Tab.ER PO SCH (20:38)
[2021-03-12] MEDS: Cholecalciferol (Vitamin D3) 25 MCG Tab PO SCH (20:39)
[2021-03-13] MEDS: Levothyroxine 50 MCG Tab PO SCH (05:41)
[2021-03-13] MEDS: Losartan 100 MG Tab PO SCH (08:58)
[2021-03-13] MEDS: Diltiazem 240 MG Cap.ER PO SCH (08:58)
[2021-03-13] MEDS: Famotidine 20 MG Tab PO SCH (08:58)
[2021-03-13] MEDS: metFORMIN 1,000 MG Tab PO SCH (08:59)
[2021-03-13] MEDS: Triamcinolone Acetonide 0.1% Crm 15 GM Tube TOP SCH (08:59)
[2021-03-13 09:09] VITALS: BP 127/74
[2021-03-13] MEDS: Acetaminophen 325 MG Tab PO SCH (10:46)
[2021-03-13] MEDS: Cyanocobalamin (Vitamin B12) 1,000 MCG Tab PO SCH (10:46)
--- NOTE | 2021-03-14 16:41 | PCM.DCSUM1 ---
Discharge Summary - Hospital Course HPI Initial Comments: This is an 85-year-old female that had a fall on the February 03, sustained a C1 fracture and a basal skull fracture. She was admitted to [facility]. She is here for physical therapy. Her pain is uncontrolled. She still complains of some constipation. She has a history of DM 2, A. fib on long-term anticoagulation, hypothyroidism and multiple falls over the last winter. Diagnosis: Stroke: No - Discharge Data Discharge Date: 03/14/21 ([facility] Home [facility]) Discharge Disposition: Home, W Home Health Agency Condition: Good - Referral to Home Health Date of Face to Face Encounter: 03/13/21 Reason for Homebound Status: [place], limited mobility Primary Care Physician: Freddie Adler MD Skilled Need: snf, PT, OT - Patient Summary/Data Consults: Consultations 02/20/21 13:45 OT Evaluation and Treatment [CONS] Routine Please Evaluate and Treat. OT Reason for Consult: ADL's This query below is only for informational purposes and is not editable. PT Evaluation and Treatment [CONS] Routine Please Evaluate and Treat. PT Reason for Consult: Ambulation This query below is only for informational purposes and is not editable. Hospital Course: She had uneventful swing bed course, pain was controlled with Tylenol extended release by discharge, had received oxycodone last dose 02/23 and Hydrocodone/ibuprofen, last dose 03/06. See therapy notes for her swing bed progress. She had follow up with Neurosurgery on Mar 06, want her to wear cervical collar for 3 month duration. INR has been in therapeutic range with dose of 2.5 mg daily, will follow up with repeat INR on TuesdayMar 16 with Home health. She had a 2 x 6 cm full thickness laceration from her initial injury, has clot formation present, weekly and as needed dressing changes with semipermeable membrane dressing. Home health will be doing dressing changes, continue PT/OT as outpatient. Will follow up with Dr Adler in 2 weeks and Neurosurgery in 1 month. - Patient Instructions Diet: Usual Diet as Tolerated Activity: As Tolerated Notify Provider of: Fever, Increased Pain, Nausea and/or Vomiting Other/Special Instructions: Follow up with Dr Adler in 2 weeks for hospital recheck. Follow up with Neurosurgery in 1 month as previously scheduled. Home Health for dressing change to Left lower leg weekly and as needed with semipermeable membrane dressing. - Discharge Plan *PRESCRIPTION DRUG MONITORING PROGRAM REVIEWED*: Not Applicable *COPY OF PRESCRIPTION DRUG MONITORING REPORT IN PATIENT ARABELLA: Not Applicable Home Medications: Home Meds Levothyroxine [Synthroid] 50 mcg PO MOTUWETHFRSA@0600 09/09/15 [History] metFORMIN [Glucophage] 1,000 mg PO BIDMEALS 09/09/15 [History] Diltiazem [Cardizem CD] 240 mg PO DAILY #30 cap.cd 10/02/15 [Rx] Acetaminophen [Tylenol Arthritis] 650 mg PO Q4H PRN 02/20/21 [History] Cholecalciferol (Vitamin D3) [Vitamin D3] 400 unit PO BEDTIME 02/20/21 [History] Cyanocobalamin (Vitamin B-12) [B-12] 1,000 mcg PO DAILY 02/20/21 [History] Denosumab [Prolia] 60 mg SUBCUT Q180D 02/20/21 [History] Famotidine 20 mg PO BID 02/20/21 [History] Levothyroxine [Synthroid] 100 mcg PO MONROE@0600 02/20/21 [History] Losartan [Cozaar] 100 mg PO DAILY 02/20/21 [History] Magnesium Chloride [Slow-Mag] 1 tab PO BEDTIME 02/20/21 [History] Pravastatin Sodium 20 mg PO MOWEFR 02/20/21 [History] Triamcinolone Acetonide [Triamcinolone Acetonide 0.1% Crm] 1 applic TOP BID 02/20/21 [History] Warfarin Sliding Scale [Coumadin Sliding Scale] 2.5 mg PO DAILY #0 03/13/21 [Rx] - Discharge Summary/Plan Comment DC Time >30 min.: No - General Info Date of Service: 03/13/21 Subjective Update: She states her pain is controlled, no shortness of breath, chest pain. No abdominal pain, nausea, vomiting, constipation or diarrhea. No other complaints, leg wound is not causing her any problems. - Patient Data Vitals - Most Recent: Last Vital Signs Temp 97.5 F 03/13/21 08:00 Pulse 91 03/13/21 08:00 Resp 16 03/13/21 08:00 BP 127/74 03/13/21 08:58 Pulse Ox 96 03/13/21 08:00 Orthostatic Blood Pressure [ 96/57 Standing] Weight - Most Recent: 188 lb 8 oz Med Orders - Current: Current Medications Discontinued Medications Acetaminophen (Acetaminophen 650 Mg Tab.Er) 650 mg PO Q4H PRN PRN Reason: Pain Last Admin: 03/10/21 06:45 Dose: 650 mg Documented by: Acetaminophen (Acetaminophen 325 Mg Tab) 650 mg PO BID [facility] Last Admin: 03/13/21 10:46 Dose: Not Given Documented by: Bisacodyl (Bisacodyl 5 Mg Tab) 10 mg PO DAILY PRN PRN Reason: Constipation Last Admin: 02/21/21 08:15 Dose: 10 mg Documented by: Cholecalciferol (Cholecalciferol (Vitamin D3) 25 Mcg Tab) 25 mcg PO BEDTIME [facility] Last Admin: 03/12/21 20:39 Dose: 25 mcg Documented by: Cyanocobalamin (Cyanocobalamin (Vitamin B12) 1,000 Mcg Tab) 1,000 mcg PO DAILY [facility] Last Admin: 03/13/21 10:46 Dose: Not Given Documented by: Denosumab (Denosumab 60 Mg/1 Ml Syringe) 60 mg SUBCUT Q180D [facility] Diltiazem HCl (Diltiazem 240 Mg Cap.Er) 240 mg PO DAILY [facility] Last Admin: 03/13/21 08:58 Dose: 240 mg Documented by: Famotidine (Famotidine 20 Mg Tab) 20 mg PO BID [facility] Last Admin: 03/13/21 08:58 Dose: 20 mg Documented by: Hydrocodone Bitartrate/Ibuprofen (Hydrocodone/Ibuprofen 7.5-200 Mg Tab) 1 tab PO Q4H PRN PRN Reason: Pain Hydrocodone Bitartrate/Ibuprofen (Hydrocodone/Ibuprofen 7.5-200 Mg Tab) 1 tab PO ONETIME ONE Stop: 03/06/21 09:01 Last Admin: 03/06/21 08:19 Dose: 1 tab Documented by: Levothyroxine Sodium (Levothyroxine 50 Mcg Tab) 50 mcg PO MOTUWETHFRSA@0600 [facility] Last Admin: 03/13/21 05:41 Dose: 50 mcg Documented by: Levothyroxine Sodium (Levothyroxine 100 Mcg Tab) 100 mcg PO MONROE@0600 [facility] Last Admin: 03/08/21 05:52 Dose: 100 mcg Documented by: Losartan Potassium (Losartan 100 Mg Tab) 100 mg PO DAILY [facility] Last Admin: 03/13/21 08:58 Dose: 100 mg Documented by: Magnesium Chloride (Magnesium Chloride 64 Mg Tab.Er) 64 mg PO BEDTIME [facility] Last Admin: 03/12/21 20:38 Dose: 64 mg Documented by: Metformin HCl (Metformin 1,000 Mg Tab) 1,000 mg PO BIDMEALS [facility] Last Admin: 03/13/21 08:59 Dose: 1,000 mg Documented by: Ondansetron HCl (Ondansetron 4 Mg Tab.Dis) 4 mg PO Q8H PRN PRN Reason: Nausea Last Admin: 02/25/21 11:14 Dose: 4 mg Documented by: Oxycodone HCl (Oxycodone 5 Mg Tab) 5 mg PO Q8H PRN PRN Reason: Breakthrough Pain Last Admin: 02/23/21 23:24 Dose: 5 mg Documented by: Pravastatin Sodium (Pravastatin 20 Mg Tab) 20 mg PO MoWeFr@2100 [facility] Last Admin: 03/11/21 20:10 Dose: 20 mg Documented by: Triamcinolone Acetonide (Triamcinolone Acetonide 0.1% Crm 15 Gm Tube) 0 gm TOP BID [facility] Last Admin: 03/13/21 08:59 Dose: Not Given Documented by: Warfarin Sodium (Warfarin Sliding Scale) 1 each PO ASDIRECTED [facility] Warfarin Sodium (Warfarin 5 Mg Tab) 5 mg PO ONETIME ONE Stop: 02/23/21 16:01 Last Admin: 02/23/21 16:06 Dose: 5 mg Documented by: Warfarin Sodium (Warfarin 2.5 Mg Tab) 2.5 mg PO 1600 [facility] Stop: 02/22/21 16:01 Last Admin: 02/22/21 15:49 Dose: 2.5 mg Documented by: Warfarin Sodium (Warfarin 5 Mg Tab) 5 mg PO DAILY@1600 [facility] Last Admin: 02/25/21 17:06 Dose: 5 mg Documented by: Warfarin Sodium (Warfarin 5 Mg Tab) 5 mg PO SuTuThSa@1600 [facility] Last Admin: 02/28/21 17:42 Dose: 5 mg Documented by: Warfarin Sodium (Warfarin 2.5 Mg Tab) 2.5 mg PO MoWeFr@1600 [facility] Last Admin: 02/27/21 16:26 Dose: 2.5 mg Documented by: Warfarin Sodium (Warfarin 2 Mg Tab) 4 mg PO ONETIME ONE Stop: 03/01/21 16:01 Warfarin Sodium (Warfarin 1 Mg Tab) Confirm Administered Dose 4 mg .ROUTE .STK- MED ONE Stop: 03/01/21 15:51 Last Admin: 03/01/21 15:53 Dose: Not Given Documented by: Warfarin Sodium (Warfarin 1 Mg Tab) 4 mg PO ONETIME ONE Stop: 03/01/21 16:01 Last Admin: 03/01/21 15:57 Dose: 4 mg Documented by: Warfarin Sodium (Warfarin 2.5 Mg Tab) 2.5 mg PO 1600 [facility] Last Admin: 03/05/21 16:51 Dose: 2.5 mg Documented by: Warfarin Sodium (Warfarin 2.5 Mg Tab) 1.25 mg PO ONETIME ONE Stop: 03/06/21 16:01 Last Admin: 03/06/21 16:15 Dose: 1.25 mg Documented by: Warfarin Sodium (Warfarin 2.5 Mg Tab) 2.5 mg PO ONETIME ONE Stop: 03/07/21 16:01 Last Admin: 03/07/21 15:52 Dose: 2.5 mg Documented by: Warfarin Sodium (Warfarin 2.5 Mg Tab) 2.5 mg PO ONETIME ONE Stop: 03/08/21 16:01 Last Admin: 03/08/21 15:52 Dose: 2.5 mg Documented by: Warfarin Sodium (Warfarin 2.5 Mg Tab) 2.5 mg PO 1600 [facility] Last Admin: 03/12/21 15:42 Dose: 2.5 mg Documented by: - Exam General: Reports: Alert, Oriented, Cooperative, No Acute Distress Neck: Reports: Other (hard cervical collar in place) Lungs: Reports: Clear to Auscultation, Normal Respiratory Effort Cardiovascular: Reports: Regular Rate, Irregular Rhythm GI/Abdominal Exam: Normal Bowel Sounds, Soft, Non-Tender, No Distention Extremities: Pedal Edema (trace BLE)
== END 2021-03-13 10:25 | disposition home health service (06) | DRG 560 ==
LOC: FB.MS 13:00
PROVIDERS: ADMIT Family Medicine; ATTEND Family Medicine
DX: S12.030D Displaced posterior arch fracture of first cervical vertebra, subsequent encounter for fracture with routine healing (principal); I48.20 Chronic atrial fibrillation, unspecified; S12.112D Nondisplaced Type II dens fracture, subsequent encounter for fracture with routine healing; E11.59 Type 2 diabetes mellitus with other circulatory complications; I10 Essential (primary) hypertension; E03.9 Hypothyroidism, unspecified; K21.9 Gastro-esophageal reflux disease without esophagitis; M81.0 Age-related osteoporosis without current pathological fracture; Z51.5 Encounter for palliative care; S01.81XD Laceration without foreign body of other part of head, subsequent encounter; E78.00 Pure hypercholesterolemia, unspecified; Z96.651 Presence of right artificial knee joint; I08.1 Rheumatic disorders of both mitral and tricuspid valves; R53.1 Weakness; E78.5 Hyperlipidemia, unspecified; Z79.01 Long term (current) use of anticoagulants; Z85.828 Personal history of other malignant neoplasm of skin; Z90.49 Acquired absence of other specified parts of digestive tract
CPT/HCPCS: 36415; 80053; 82947; 84443; 85025; 85610; 94760; 97110-GP; 97112-GP; 97116-GP; 97162-GP; 97165-GO; 97530-GO; 97530-GP; 97535-GO; 97542-GO; A9270-GY

== ENCOUNTER 2021-08-18 11:04 | Inpatient (IN) | payer MEDICARE, BC ==
[2021-08-18] MEDS ORDERED: Ketorolac 30 MG/ML SDV IM ONE (11:24)
[2021-08-18] MEDS ORDERED: Ondansetron 4 MG Tab.DIS PO ONE (11:24)
[2021-08-18] MEDS ORDERED: traMADol 50 MG Tab PO ONE (11:24)
--- NOTE | 2021-08-18 12:15 | CR ---
THORACIC SPINE INDICATION: Compression fracture. FINDINGS: Four views of the thoracic spine with an AP and three lateral views revealed a moderate dextroconvex slightly rotatory scoliosis of the lower middle thoracic spine, dextroconcave in the upper thoracic spine. Bridging hyperostotic changes are noted off the vertebral bodies anteriorly at the lower thoracic spine of moderate degree and less prominently in the mid thoracic spine with some very minimal hypertrophic changes more superiorly. Vertebral body and disc heights appear to be fairly well maintained without a definite compression fracture or dislocation. IMPRESSION: 1. No acute fracture or dislocation. 2. Scoliosis. 3. DJD. MTDD
--- NOTE | 2021-08-18 12:20 | CR ---
LUMBAR SPINE INDICATION: Compression fracture. FINDINGS: Four images of the lumbosacral spine - AP and three laterals, were obtained 08/18/21 - no comparison. A mild to moderate dextroconcave scoliosis of the upper middle lumbar spine is noted. Narrowing of the L4-5 disc space is noted with moderate hypertrophic changes anteriorly off the vertebral bodies at that level. There may also be some narrowing of the disc space at L2-3. Vertebral body heights were well maintained without a fracture or dislocation identified. Incidentally noted were calcifications in the abdominal aorta. IMPRESSION: 1. No acute fracture or dislocation. 2. Degenerative disc disease L4-5 and possibly L2-3. 3. Mild scoliosis. 4. ASD. Report was called to Dr. Mcdonnell of both the lumbosacral spine and thoracic spine at approximately 1205 hours. [facility]
--- NOTE | 2021-08-18 12:21 | EDM.PDOC ---
ED HPI GENERAL MEDICAL PROBLEM - General Chief Complaint: Back Pain or Injury Stated Complaint: FALL Time Seen by Provider: 08/18/21 11:05 Source of Information: Reports: Patient, Family History Limitations: Reports: No Limitations - History of Present Illness INITIAL COMMENTS - FREE TEXT/NARRATIVE: Patient is an 85 YO WF from the [facility] who presented to the ED because of frequent fall. She fell saturaday night and was seen at [facility],C-spine Ct was negative for an acute fracture but positive for an old fracture. Yesterday hshe fell aga due to bilateral LE weakness and now c/o upper back and lower back pain. Back Pain Score (Numeric/FACES): 9 - Related Data Allergies Allergy/AdvReac Type Severity Reaction Status Date / Time Iodinated Contrast Media Allergy Itching Verified 02/26/21 14:00 Sulfa (Sulfonamide Allergy Rash Verified 10/15/16 12:03 Antibiotics) Home Meds: Home Meds Levothyroxine [Synthroid] 50 mcg PO MOTUWETHFRSA@0600 09/09/15 [History] metFORMIN [Glucophage] 1,000 mg PO BIDMEALS 09/09/15 [History] Diltiazem [Cardizem CD] 240 mg PO DAILY #30 cap.cd 10/02/15 [Rx] Acetaminophen [Tylenol Arthritis] 650 mg PO Q4H PRN 02/20/21 [History] Cholecalciferol (Vitamin D3) [Vitamin D3] 125 mcg PO BEDTIME 02/20/21 [History] Cyanocobalamin (Vitamin B-12) [B-12] 1,000 mcg PO BEDTIME 02/20/21 [History] Denosumab [Prolia] 60 mg SUBCUT Q180D 02/20/21 [History] Famotidine 20 mg PO DAILY 02/20/21 [History] Levothyroxine [Synthroid] 100 mcg PO MONROE@0600 02/20/21 [History] Pravastatin Sodium 20 mg PO MOWEFR@0900 02/20/21 [History] Triamcinolone Acetonide [Triamcinolone Acetonide 0.1% Crm] 1 applic TOP BID 02/20/21 [History] Warfarin [Coumadin] 2.5 mg PO SUMOWEFR 08/18/21 [History] Warfarin [Coumadin] 5 mg PO TUTHSA 08/18/21 [History] traMADol [Ultram] 100 mg PO Q8H PRN #30 tab 08/18/21 [Rx] Losartan [Cozaar] 50 mg PO DAILY 08/19/21 [History] Magnesium Oxide 400 mg PO BEDTIME 08/19/21 [History] Past Medical History HEENT History: Reports: Cataract Cardiovascular History: Reports: Afib, Hypertension Respiratory History: Reports: Asthma, Bronchitis, Recurrent Gastrointestinal History: Reports: GERD Genitourinary History: Reports: None, Urinary Incontinence [employer] History: Reports: Musculoskeletal History: Reports: Fracture Other Musculoskeletal History: L ankle fx in past, Neurological History: Reports: Migraines, TIA, Other (See Below) Other Neuro History: once had a seizure years ago Psychiatric History: Reports: Depression Endocrine/Metabolic History: Reports: Diabetes, Type II, Hypothyroidism, Obesity /BMI 30+ Hematologic History: Reports: Blood Transfusion(s), Iron Deficiency Immunologic History: Reports: None Oncologic (Cancer) History: Reports: None Dermatologic History: Reports: None - Infectious Disease History Infectious Disease History: Reports: Shingles - Past Surgical History Head Surgeries/Procedures: Reports: None Cardiovascular Surgical History: Reports: None Respiratory Surgical History: Reports: None GI Surgical History: Reports: Appendectomy, Cholecystectomy, Colonoscopy Female Surgical History: Reports: None Neurological Surgical History: Reports: None Musculoskeletal Surgical History: Reports: Arthroscopic Knee, Knee Replacement Other Musculoskeletal Surgeries/Procedures:: R knee scope & rplmt, Social & Family History - Family History Family Medical History: No Pertinent Family History HEENT: Reports: Cataract Cardiac: Reports: Blood Clots/VTE/DVT OBGYN: Reports: Neurological: Reports: CVA Psychiatric: Reports: Depression Endocrine/Metabolic: Reports: Diabetes, type II, Hypothyroidism Oncologic: Reports: Breast, Lung, Skin - Tobacco Use Tobacco Use Status *Q: Never Tobacco User - Caffeine Use Caffeine Use: Reports: None - Recreational Drug Use Recreational Drug Use: No ED ROS GENERAL - Review of Systems Review Of Systems: See Below Constitutional: Reports: No Symptoms HEENT: Reports: No Symptoms Respiratory: Reports: No Symptoms Cardiovascular: Reports: No Symptoms Endocrine: Reports: No Symptoms GI/Abdominal: Reports: No Symptoms : Reports: No Symptoms Musculoskeletal: Reports: Back Pain Skin: Reports: No Symptoms Neurological: Reports: Weakness Psychiatric: Reports: No Symptoms ED EXAM,LOWER BACK PAIN/INJURY - Physical Exam Exam: See Below Exam Limited By: No Limitations General Appearance: Alert, No Apparent Distress Ears: Normal External Exam, Normal Canal, Hearing Grossly Normal, Normal TMs Nose: Normal Inspection, Normal Mucosa, No Blood Throat/Mouth: Normal Inspection, Normal Lips, Normal Teeth, Normal Oropharynx, Normal Voice Neck: Normal Inspection, Supple, Full Range of Motion Respiratory/Chest: No Respiratory Distress, Lungs Clear, Normal Breath Sounds, No Accessory Muscle Use Cardiovascular: Normal Peripheral Pulses, Regular Rate, Rhythm, No Edema, No Gallop GI/Abdominal: Normal Bowel Sounds, Soft, Non-Tender, No Organomegaly ( ), No Distention, No Abnormal Bruit, No Mass, Pelvis Stable Extremities: Normal Inspection, Normal Range of Motion, No Pedal Edema, Normal Capillary Refill, Other (tenderness thoraci and lumbar spine with spasms) Neurological: Alert, Normal Mood/Affect, Normal Dorsiflexion, Normal Plantar Fl exion, Normal Gait, Normal Reflexes Course - Vital Signs Text/Narrative:: Lab/EKG result was reviewed and discussed with patient and her family NS @125 ml/hr Last Recorded V/S: Last Vital Signs Temp 36.0 C L 08/19/21 05:15 Pulse 94 08/19/21 05:15 Resp 16 08/19/21 05:15 BP 143/69 H 08/19/21 08:10 Pulse Ox 95 08/19/21 05:15 - Orders/Labs/Meds Orders: Active Orders 24 hr Category Date Time Status Accu Check [Blood Glucose Check, Bedside] [RC] 07,17 Care 08/18/21 18:27 Active Oxygen Therapy [RC] .PRN Care 08/18/21 15:51 Active Up With Assistance [RC] ASDIRECTED Care 08/18/21 15:51 Active Up to Chair [RC] ASDIRECTED Care 08/18/21 15:51 Active VTE/DVT Education [RC] Per Unit Routine Care 08/18/21 15:51 Active Vital Signs [RC] QSHIFT Care 08/18/21 15:51 Active OT Evaluation and Treatment [CONS] Routine Cons 08/18/21 15:52 Active PT Evaluation and Treatment [CONS] Routine Cons 08/18/21 15:52 Active Regular Diet [DIET] Diet 08/18/21 Dinner Active BASIC METABOLIC PANEL,BMP [CHEM] Routine Lab 08/20/21 06:00 Ordered UA W/MICROSCOPIC [URIN] Routine Lab 08/19/21 08:40 Ordered Acetaminophen [Tylenol Arthritis Pain] Med 08/18/21 15:42 Active 650 mg PO Q4H PRN Acetaminophen [Tylenol Extra Strength] Med 08/18/21 16:00 Active 500 mg PO Q6H Levothyroxine [Synthroid] Med 08/23/21 06:00 Active 100 mcg PO MONROE@0600 Levothyroxine [Synthroid] Med 08/19/21 06:00 Active 50 mcg PO MOTUWETHFRSA@0600 Losartan [Cozaar] Med 08/19/21 09:00 Active 50 mg PO DAILY Pravastatin [Pravachol] Med 08/19/21 09:00 Active 20 mg PO MOWEFR Sodium Chloride 0.9% [Normal Saline] 1,000 ml Med 08/18/21 13:15 Active IV ASDIRECTED Sodium Chloride 0.9% [Saline Flush] Med 08/18/21 13:02 Active 10 ml FLUSH ASDIRECTED PRN Warfarin Sliding Scale [Coumadin Sliding Scale] Med 08/19/21 09:00 Pending 1 each PO ASDIRECTED metFORMIN [Glucophage] Med 08/18/21 18:00 Active 1,000 mg PO BIDMEALS traMADol [Ultram] Med 08/18/21 15:53 Active 50 mg PO Q6H PRN Saline Lock Insert [OM.PC] Routine Oth 08/18/21 13:02 Ordered Resuscitation Status Routine Resus Stat 08/18/21 15:51 Ordered EKG 12 Lead [EK] Routine Ther 08/18/21 14:37 Ordered Medication Orders Acetaminophen (Acetaminophen 650 Mg Tab.Er) 650 mg PO Q4H PRN PRN Reason: Pain Acetaminophen (Acetaminophen 500 Mg Tab) 500 mg PO Q6H [facility] Last Admin: 08/19/21 11:01 Dose: 500 mg Documented by: Admin: 08/19/21 05:12 Dose: 500 mg Documented by: Admin: 08/18/21 21:29 Dose: 500 mg Documented by: Admin: 08/18/21 16:55 Dose: 500 mg Documented by: RAGHAV Diltiazem HCl (Diltiazem 240 Mg Cap.Er) 240 mg PO DAILY [facility] Famotidine (Famotidine 20 Mg Tab) 20 mg PO DAILY [facility] Sodium Chloride (Normal Saline) 1,000 mls @ 75 mls/hr IV ASDIRECTED [facility] Last Admin: 08/19/21 08:49 Dose: 75 mls/hr Documented by: Infusion: 08/19/21 08:06 Dose: 100 mls/hr Documented by: Admin: 08/18/21 22:06 Dose: 100 mls/hr Documented by: Infusion: 08/18/21 21:18 Dose: 125 mls/hr Documented by: Admin: 08/18/21 13:18 Dose: 125 mls/hr Documented by: GARRY Levothyroxine Sodium (Levothyroxine 50 Mcg Tab) 50 mcg PO MOTUWETHFRSA@0600 [facility] Last Admin: 08/19/21 05:13 Dose: 50 mcg Documented by: RAJINDER Levothyroxine Sodium (Levothyroxine 50 Mcg Tab) 100 mcg PO MONROE@0600 [facility] Losartan Potassium (Losartan 50 Mg Tab) 50 mg PO DAILY [facility] Last Admin: 08/19/21 08:10 Dose: 50 mg Documented by: RAGHAV Metformin HCl (Metformin 1,000 Mg Tab) 1,000 mg PO BIDMEALS [facility] Last Admin: 08/19/21 08:06 Dose: 1,000 mg Documented by: Admin: 08/18/21 18:55 Dose: 1,000 mg Documented by: RAGHAV Pravastatin Sodium (Pravastatin 20 Mg Tab) 20 mg PO MOWEFR [facility] Last Admin: 08/19/21 08:12 Dose: 20 mg Documented by: RAGHAV Sodium Chloride (Sodium Chloride 0.9% 10 Ml Syringe) 10 ml FLUSH ASDIRECTED PRN PRN Reason: Keep Vein Open Tramadol HCl (Tramadol 50 Mg Tab) 50 mg PO Q6H PRN PRN Reason: Pain (moderate 4-6) Warfarin Sodium (Warfarin Sliding Scale) 1 each PO ASDIRECTED [facility] Warfarin Sodium (Warfarin 2.5 Mg Tab) 2.5 mg PO ONETIME ONE Stop: 08/19/21 16:01 Labs: Laboratory Tests 08/18/21 08/18/21 08/18/21 Range/Units 13:03 13:30 13:30 WBC 11.3 H (3.0-10.3) x10-3/uL RBC 3.70 (3.60-5.20) x10(6)uL Hgb 11.1 L (11.4-15.5) g/dL Hct 33.5 L (34.2-48.2) % MCV 90.4 (76.7-100.5) fL MCH 30.0 (23.9-33.9) pg MCHC 33.2 (31.9-34.8) g/dL RDW 15.5 (12.3-16.5) % Plt Count 218 (151-488) x10(3)uL MPV 7.8 (7.1-12.4) fL Neut % (Auto) 83.1 H (30.8-76.2) % Lymph % (Auto) 7.4 L (18.4-52.1) % [place] % (Auto) 8.9 (4.4-15.7) % Eos % (Auto) 0.1 L (0.6-8.1) % Baso % (Auto) 0.5 (0.2-1.5) % Neut # (Auto) 9.4 H (1.5-6.3) x10-3/uL Lymph # (Auto) 0.8 L (1.0-4.4) x10-3/uL [place] # (Auto) 1.0 (0.3-1.0) x10-3/uL Eos # (Auto) 0.0 (0.0-0.8) x10-3/uL Baso # (Auto) 0.1 (0.0-0.1) x10-3/uL PT 27.6 H (9.0-11.1) sec INR 2.73 H (1.00-1.24) Sodium (135-145) mmol/L Potassium (3.5-5.3) mmol/L Chloride (100-110) mmol/L Carbon Dioxide (21-32) mmol/L BUN (7-18) mg/dL Creatinine (0.55-1.02) mg/dL Est Cr Clr Drug Dosing mL/min Estimated GFR (MDRD) (>60) BUN/Creatinine Ratio (9-20) Glucose (80-116) mg/dL POC Glucose (80-116) mg/dL Calcium (8.6-10.2) mg/dL Total Bilirubin (0.1-1.3) mg/dL AST (5-25) IU/L ALT (12-36) U/L Alkaline Phosphatase (56-112) IU/L Total Protein (6.0-8.0) g/dL Albumin (3.2-4.6) g/dL Globulin g/dL Albumin/Globulin Ratio SARS-CoV-2 RNA (GORDO) Negative (NEGATIVE) 08/18/21 08/18/21 08/19/21 Range/Units 13:30 18:53 06:20 WBC 7.4 (3.0-10.3) x10-3/uL RBC 3.48 L (3.60-5.20) x10(6)uL Hgb 10.5 L (11.4-15.5) g/dL Hct 31.7 L (34.2-48.2) % MCV 91.1 (76.7-100.5) fL MCH 30.3 (23.9-33.9) pg MCHC 33.3 (31.9-34.8) g/dL RDW 16.0 (12.3-16.5) % Plt Count 201 (151-488) x10(3)uL MPV 7.9 (7.1-12.4) fL Neut % (Auto) 67.2 (30.8-76.2) % Lymph % (Auto) 18.4 (18.4-52.1) % [place] % (Auto) 10.9 (4.4-15.7) % Eos % (Auto) 2.8 (0.6-8.1) % Baso % (Auto) 0.7 (0.2-1.5) % Neut # (Auto) 5.0 (1.5-6.3) x10-3/uL Lymph # (Auto) 1.4 (1.0-4.4) x10-3/uL [place] # (Auto) 0.8 (0.3-1.0) x10-3/uL Eos # (Auto) 0.2 (0.0-0.8) x10-3/uL Baso # (Auto) 0.1 (0.0-0.1) x10-3/uL PT (9.0-11.1) sec INR (1.00-1.24) Sodium 139 (135-145) mmol/L Potassium 4.0 (3.5-5.3) mmol/L Chloride 102 (100-110) mmol/L Carbon Dioxide 28 (21-32) mmol/L BUN 15 (7-18) mg/dL Creatinine 1.1 H (0.55-1.02) mg/dL Est Cr Clr Drug Dosing 33.65 mL/min Estimated GFR (MDRD) 47 L (>60) BUN/Creatinine Ratio 13.6 (9-20) Glucose 180 H (80-116) mg/dL POC Glucose 159 H (80-116) mg/dL Calcium 8.8 (8.6-10.2) mg/dL Total Bilirubin 1.4 H (0.1-1.3) mg/dL AST 19 D (5-25) IU/L ALT 18 D (12-36) U/L Alkaline Phosphatase 117 H (56-112) IU/L Total Protein 6.6 (6.0-8.0) g/dL Albumin 3.2 (3.2-4.6) g/dL Globulin 3.4 g/dL Albumin/Globulin Ratio 0.9 SARS-CoV-2 RNA (GORDO) (NEGATIVE) 08/19/21 08/19/21 Range/Units 06:20 06:20 WBC (3.0-10.3) x10-3/uL RBC (3.60-5.20) x10(6)uL Hgb (11.4-15.5) g/dL Hct (34.2-48.2) % MCV (76.7-100.5) fL MCH (23.9-33.9) pg MCHC (31.9-34.8) g/dL RDW (12.3-16.5) % Plt Count (151-488) x10(3)uL MPV (7.1-12.4) fL Neut % (Auto) (30.8-76.2) % Lymph % (Auto) (18.4-52.1) % [place] % (Auto) (4.4-15.7) % Eos % (Auto) (0.6-8.1) % Baso % (Auto) (0.2-1.5) % Neut # (Auto) (1.5-6.3) x10-3/uL Lymph # (Auto) (1.0-4.4) x10-3/uL [place] # (Auto) (0.3-1.0) x10-3/uL Eos # (Auto) (0.0-0.8) x10-3/uL Baso # (Auto) (0.0-0.1) x10-3/uL PT 28.7 H (9.0-11.1) sec INR 2.85 H (1.00-1.24) Sodium 139 (135-145) mmol/L Potassium 3.5 (3.5-5.3) mmol/L Chloride 105 (100-110) mmol/L Carbon Dioxide 26 (21-32) mmol/L BUN 20 H (7-18) mg/dL Creatinine 1.2 H (0.55-1.02) mg/dL Est Cr Clr Drug Dosing 30.84 mL/min Estimated GFR (MDRD) 43 L (>60) BUN/Creatinine Ratio 16.7 (9-20) Glucose 129 H (80-116) mg/dL POC Glucose (80-116) mg/dL Calcium 8.5 L (8.6-10.2) mg/dL Total Bilirubin (0.1-1.3) mg/dL AST (5-25) IU/L ALT (12-36) U/L Alkaline Phosphatase (56-112) IU/L Total Protein (6.0-8.0) g/dL Albumin (3.2-4.6) g/dL Globulin g/dL Albumin/Globulin Ratio SARS-CoV-2 RNA (GORDO) (NEGATIVE) Meds: Medications Generic Name Dose Route Start Last Admin Trade Name Freq PRN Reason Stop Dose Admin Acetaminophen 650 mg 08/18/21 15:42 Acetaminophen 650 Mg Tab.Er PO Q4H PRN Pain Acetaminophen 500 mg 08/18/21 16:00 08/19/21 11:01 Acetaminophen 500 Mg Tab PO 500 mg Q6H NOLAN Administration Diltiazem HCl 240 mg 08/20/21 09:00 Diltiazem 240 Mg Cap.Er PO DAILY NOLAN Famotidine 20 mg 08/20/21 09:00 Famotidine 20 Mg Tab PO DAILY NOLAN Sodium Chloride 1,000 mls @ 75 mls/hr 08/18/21 13:15 08/19/21 08:49 Normal Saline IV 75 mls/hr ASDIRECTED NOLAN Administration Levothyroxine Sodium 50 mcg 08/19/21 06:00 08/19/21 05:13 Levothyroxine 50 Mcg Tab PO 50 mcg MOTUWETHFRSA@0600 NOLAN Administration Levothyroxine Sodium 100 mcg 08/23/21 06:00 Levothyroxine 50 Mcg Tab PO MONROE@0600 [facility] Losartan Potassium 50 mg 08/19/21 09:00 08/19/21 08:10 Losartan 50 Mg Tab PO 50 mg DAILY NOLAN Administration Metformin HCl 1,000 mg 08/18/21 18:00 08/19/21 08:06 Metformin 1,000 Mg Tab PO 1,000 mg BIDMEALS NOLAN Administration Pravastatin Sodium 20 mg 08/19/21 09:00 08/19/21 08:12 Pravastatin 20 Mg Tab PO 20 mg MOWEFR NOLAN Administration Sodium Chloride 10 ml 08/18/21 13:02 Sodium Chloride 0.9% 10 Ml Syringe FLUSH ASDIRECTED PRN Keep Vein Open Tramadol HCl 50 mg 08/18/21 15:53 Tramadol 50 Mg Tab PO Q6H PRN Pain (moderate 4-6) Warfarin Sodium 1 each 08/19/21 09:00 Warfarin Sliding Scale PO ASDIRECTED NOLAN Warfarin Sodium 2.5 mg 08/19/21 16:00 Warfarin 2.5 Mg Tab PO 08/19/21 16:01 ONETIME ONE Discontinued Medications Generic Name Dose Route Start Last Admin Trade Name Freq PRN Reason Stop Dose Admin Famotidine 20 mg 08/18/21 21:00 08/19/21 08:11 Famotidine 20 Mg Tab PO 20 mg BID NOLAN Administration Ketorolac Tromethamine 30 mg 08/18/21 11:24 08/18/21 11:31 Ketorolac 30 Mg/Ml Sdv IM 08/18/21 11:25 30 mg ONETIME ONE Administration (Diltiazem [Cardizem 240 mg 08/19/21 09:00 08/19/21 08:11 Cd] 240 Mg Cap.Cd) PO 240 mg *Ptom DAILY NOLAN Administration Ondansetron HCl 4 mg 08/18/21 11:24 08/18/21 11:30 Ondansetron 4 Mg Tab.Dis PO 08/18/21 11:25 4 mg ONETIME ONE Administration Tramadol HCl 100 mg 08/18/21 11:24 08/18/21 11:30 Tramadol 50 Mg Tab PO 08/18/21 11:25 100 mg ONETIME ONE Administration Warfarin Sodium 2.5 mg 08/18/21 16:30 08/18/21 16:57 Warfarin 5 Mg Tab *Ptom PO 08/18/21 16:31 2.5 mg ONETIME ONE Administration Departure - Departure Time of Disposition: 13:00 Disposition: Refer to Observation Condition: Good Clinical Impression: Cervical strain, Sprain of upper back, Sprain - Discharge Information Sepsis Event Note (ED) - Evaluation Sepsis Screening Result: No Definite Risk - Focused Exam Vital Signs: Vital Signs Temp Pulse Resp BP BP Pulse Ox 08/19/21 08:10 143/69 H 08/19/21 05:15 36.0 C L 94 16 124/60 95 - My Orders Last 24 Hours: My Active Orders 08/18/21 13:02 Sodium Chloride 0.9% [Saline Flush] 10 ml FLUSH ASDIRECTED PRN Saline Lock Insert [OM.PC] Routine 08/18/21 13:15 Sodium Chloride 0.9% [Normal Saline] 1,000 ml IV ASDIRECTED 08/18/21 14:37 EKG 12 Lead [EK] Routine - Assessment/Plan Last 24 Hours: My Active Orders 08/18/21 13:02 Sodium Chloride 0.9% [Saline Flush] 10 ml FLUSH ASDIRECTED PRN Saline Lock Insert [OM.PC] Routine 08/18/21 13:15 Sodium Chloride 0.9% [Normal Saline] 1,000 ml IV ASDIRECTED 08/18/21 14:37 EKG 12 Lead [EK] Routine
[2021-08-18] MEDS ORDERED: Sodium Chloride 0.9% 10 ML Syringe FLUSH PRN (13:02)
[2021-08-18] MEDS: Sodium Chloride 0.9% 1,000 ML IV SCH ×2 (13:18→22:06)
[2021-08-18] MEDS ORDERED: Acetaminophen 650 MG Tab.ER PO PRN (15:42)
--- NOTE | 2021-08-18 16:02 | PCM.HP.2 ---
H&P History of Present Illness - General Date of Service: 08/18/21 Admit Problem/Dx: Admission Diagnosis/Problem Admission Diagnosis/Problem Weakness Source of Information: Patient, Old Records, Provider History Limitations: Reports: No Limitations - History of Present Illness Initial Comments - Free Text/Narative: Lima presented to ER today for back pain, fall yesterday and bilateral leg weakness. She had a fall on Tuesday, her walker went out in front of her and she landing on her abdomen at [facility] her family took her up to [facility] ER. She had CT head, C-spine, chest/abdomen/pelvis which did not show any acute injuries or fractures. She has history of C1 fracture in January, no new injury to this area. Her WBC was 11.9 on Sat, Cr 1.0. INR 2.4. She was sent home with Tylenol as needed for pain. She fell again on Tuesday morning, her daughter Kathleen called [facility] for referral to [facility] with PT to get her stronger as she has been getting weaker and scared to walk. She denies any fevers, chills, sore throat, cough, shortness of breath, nausea, vomiting, diarrhea. Her last BM she reports was Tuesday, normally takes lillyjt dario childdennis to keep herself regular. She goes down to dining room for 1 meal a day and snacks in her apartment. History of Diabetes, Atrial fibrillation on Coumadin, managed by Anticoagulation clinic at [facility]. Denies any numbness or tingling just weak in her legs. In ER she rated her pain as 9/10, received Toradol 30 mg IM x 1, Zofran 4 mg x 1 and Tramadol 100 mg po x 1 and pain went down to 5/10. She was unable to ambulate with nursing in ER so decision made to admit. WBC here was 11.3, Cr 1.1, Covid negative. Afebrile. CODE STATUS: DNR/DNI. Back Pain Score (Numeric/FACES): 5 - Related Data Allergies/Adverse Reactions: Allergies Allergy/AdvReac Type Severity Reaction Status Date / Time Iodinated Contrast Media Allergy Itching Verified 02/26/21 14:00 Sulfa (Sulfonamide Allergy Rash Verified 10/15/16 12:03 Antibiotics) Home Medications: Home Meds Levothyroxine [Synthroid] 50 mcg PO MOTUWETHFRSA@0600 09/09/15 [History] metFORMIN [Glucophage] 1,000 mg PO BIDMEALS 09/09/15 [History] Diltiazem [Cardizem CD] 240 mg PO DAILY #30 cap.cd 10/02/15 [Rx] Acetaminophen [Tylenol Arthritis] 650 mg PO Q4H PRN 02/20/21 [History] Cholecalciferol (Vitamin D3) [Vitamin D3] 125 mcg PO BEDTIME 02/20/21 [History] Cyanocobalamin (Vitamin B-12) [B-12] 1,000 mcg PO DAILY 02/20/21 [History] Denosumab [Prolia] 60 mg SUBCUT Q180D 02/20/21 [History] Famotidine 20 mg PO BID 02/20/21 [History] Levothyroxine [Synthroid] 100 mcg PO MONROE@0600 02/20/21 [History] Losartan [Cozaar] 50 mg PO DAILY 02/20/21 [History] Magnesium Chloride [Slow-Mag] 400 tab PO BEDTIME 02/20/21 [History] Pravastatin Sodium 20 mg PO MOWEFR 02/20/21 [History] Triamcinolone Acetonide [Triamcinolone Acetonide 0.1% Crm] 1 applic TOP BID 02/20/21 [History] Warfarin [Coumadin] 2.5 mg PO SUMOWEFR 08/18/21 [History] Warfarin [Coumadin] 5 mg PO TUTHSA 08/18/21 [History] traMADol [Ultram] 100 mg PO Q8H PRN #30 tab 08/18/21 [Rx] Past Medical History HEENT History: Reports: Cataract Cardiovascular History: Reports: Afib, Hypertension Respiratory History: Reports: Asthma, Bronchitis, Recurrent Gastrointestinal History: Reports: GERD Genitourinary History: Reports: None, Urinary Incontinence [employer] History: Reports: Musculoskeletal History: Reports: Fracture Other Musculoskeletal History: L ankle fx in past, Neurological History: Reports: Migraines, TIA, Other (See Below) Other Neuro History: once had a seizure years ago Psychiatric History: Reports: Depression Endocrine/Metabolic History: Reports: Diabetes, Type II, Hypothyroidism, Obesity/BMI 30+ Hematologic History: Reports: Blood Transfusion(s), Iron Deficiency Immunologic History: Reports: None Oncologic (Cancer) History: Reports: None Dermatologic History: Reports: None - Infectious Disease History Infectious Disease History: Reports: Shingles - Past Surgical History Head Surgeries/Procedures: Reports: None Cardiovascular Surgical History: Reports: None Respiratory Surgical History: Reports: None GI Surgical History: Reports: Appendectomy, Cholecystectomy, Colonoscopy Female Surgical History: Reports: None Neurological Surgical History: Reports: None Musculoskeletal Surgical History: Reports: Arthroscopic Knee, Knee Replacement Other Musculoskeletal Surgeries/Procedures:: R knee scope & rplmt, Social & Family History - Family History Family Medical History: No Pertinent Family History HEENT: Reports: Cataract Cardiac: Reports: Blood Clots/VTE/DVT OBGYN: Reports: Neurological: Reports: CVA Psychiatric: Reports: Depression Endocrine/Metabolic: Reports: Diabetes, type II, Hypothyroidism Oncologic: Reports: Breast, Lung, Skin - Tobacco Use Tobacco Use Status *Q: Never Tobacco User - Caffeine Use Caffeine Use: Reports: None - Recreational Drug Use Recreational Drug Use: No H&P Review of Systems - Review of Systems: Review Of Systems: Comprehensive ROS is negative, except as noted in HPI. Exam - Exam Exam: See Below - Vital Signs Vital Signs: Last Vital Signs Temp 98.7 F 08/18/21 11:04 Pulse 105 H 08/18/21 11:04 Resp 20 08/18/21 11:04 BP 159/86 H 08/18/21 11:04 Pulse Ox 96 08/18/21 11:04 Weight: 190 lb - Exam General: Alert, Oriented, Cooperative HEENT: PERRLA, Conjunctiva Clear, EOMI, Hearing Intact. No: Mucosa Moist & Sells Neck: Trachea Midline. No: Lymphadenopathy Lungs: Clear to Auscultation, Normal Respiratory Effort, Decreased Breath Sounds (bibasilar). No: Crackles, Wheezing Cardiovascular: Regular Rate, Irregular Rhythm GI/Abdominal Exam: Normal Bowel Sounds, Soft, Non-Tender, No Distention (Female) Exam: Deferred Rectal (Female) Exam: Deferred Extremities: Normal Capillary Refill, Pedal Edema (1+ BLE) Peripheral Pulses: 2+: Radial (L), Radial (R) Skin: Warm, Dry, Intact, Ecchymosis (left upper arm, left forearm) Neurological: Cranial Nerves Intact, Normal Speech, Normal Tone, Sensation Intact. No: Strength Equal Bilateral (5/5 BUE, 4/5 BLE, dorsiflexion/plantarflexion 4+/5) - Patient Data Lab Results Last 24 hrs: Laboratory Results - last 24 hr 08/18/21 08/18/21 08/18/21 Range/Units 13:03 13:30 13:30 WBC 11.3 H (3.0-10.3) x10-3/uL RBC 3.70 (3.60-5.20) x10(6)uL Hgb 11.1 L (11.4-15.5) g/dL Hct 33.5 L (34.2-48.2) % MCV 90.4 (76.7-100.5) fL MCH 30.0 (23.9-33.9) pg MCHC 33.2 (31.9-34.8) g/dL RDW 15.5 (12.3-16.5) % Plt Count 218 (151-488) x10(3)uL MPV 7.8 (7.1-12.4) fL Neut % (Auto) 83.1 H (30.8-76.2) % Lymph % (Auto) 7.4 L (18.4-52.1) % [place] % (Auto) 8.9 (4.4-15.7) % Eos % (Auto) 0.1 L (0.6-8.1) % Baso % (Auto) 0.5 (0.2-1.5) % Neut # (Auto) 9.4 H (1.5-6.3) x10-3/uL Lymph # (Auto) 0.8 L (1.0-4.4) x10-3/uL [place] # (Auto) 1.0 (0.3-1.0) x10-3/uL Eos # (Auto) 0.0 (0.0-0.8) x10-3/uL Baso # (Auto) 0.1 (0.0-0.1) x10-3/uL PT 27.6 H (9.0-11.1) sec INR 2.73 H (1.00-1.24) Sodium (135-145) mmol/L Potassium (3.5-5.3) mmol/L Chloride (100-110) mmol/L Carbon Dioxide (21-32) mmol/L BUN (7-18) mg/dL Creatinine (0.55-1.02) mg/dL Est Cr Clr Drug Dosing mL/min Estimated GFR (MDRD) (>60) BUN/Creatinine Ratio (9-20) Glucose (80-116) mg/dL Calcium (8.6-10.2) mg/dL Total Bilirubin (0.1-1.3) mg/dL AST (5-25) IU/L ALT (12-36) U/L Alkaline Phosphatase (56-112) IU/L Total Protein (6.0-8.0) g/dL Albumin (3.2-4.6) g/dL Globulin g/dL Albumin/Globulin Ratio SARS-CoV-2 RNA (GORDO) Negative (NEGATIVE) 08/18/21 Range/Units 13:30 WBC (3.0-10.3) x10-3/uL RBC (3.60-5.20) x10(6)uL Hgb (11.4-15.5) g/dL Hct (34.2-48.2) % MCV (76.7-100.5) fL MCH (23.9-33.9) pg MCHC (31.9-34.8) g/dL RDW (12.3-16.5) % Plt Count (151-488) x10(3)uL MPV (7.1-12.4) fL Neut % (Auto) (30.8-76.2) % Lymph % (Auto) (18.4-52.1) % [place] % (Auto) (4.4-15.7) % Eos % (Auto) (0.6-8.1) % Baso % (Auto) (0.2-1.5) % Neut # (Auto) (1.5-6.3) x10-3/uL Lymph # (Auto) (1.0-4.4) x10-3/uL [place] # (Auto) (0.3-1.0) x10-3/uL Eos # (Auto) (0.0-0.8) x10-3/uL Baso # (Auto) (0.0-0.1) x10-3/uL PT (9.0-11.1) sec INR (1.00-1.24) Sodium 139 (135-145) mmol/L Potassium 4.0 (3.5-5.3) mmol/L Chloride 102 (100-110) mmol/L Carbon Dioxide 28 (21-32) mmol/L BUN 15 (7-18) mg/dL Creatinine 1.1 H (0.55-1.02) mg/dL Est Cr Clr Drug Dosing 33.65 mL/min Estimated GFR (MDRD) 47 L (>60) BUN/Creatinine Ratio 13.6 (9-20) Glucose 180 H (80-116) mg/dL Calcium 8.8 (8.6-10.2) mg/dL Total Bilirubin 1.4 H (0.1-1.3) mg/dL AST 19 D (5-25) IU/L ALT 18 D (12-36) U/L Alkaline Phosphatase 117 H (56-112) IU/L Total Protein 6.6 (6.0-8.0) g/dL Albumin 3.2 (3.2-4.6) g/dL Globulin 3.4 g/dL Albumin/Globulin Ratio 0.9 SARS-CoV-2 RNA (GORDO) (NEGATIVE) Result Diagrams: 08/18/21 13:30 08/18/21 13:30 Sepsis Event Note - Evaluation Sepsis Screening Result: No Definite Risk - Focused Exam Vital Signs: Vital Signs Temp Pulse Resp BP Pulse Ox 08/18/21 11:04 98.7 F 105 H 20 159/86 H 96 *Q Meaningful Use (ADM) - VTE *Q VTE Mechanical Contraindications *Q: At Risk for Falls - VTE Risk Assess *Q Each Risk Factor Represents 1 Point: Swollen Legs, Current, Obesity ( BMI > 25 kg/m2) Total Score 1 Point Risk Factors: 2 Each Risk Factor Represents 2 Points: None Total Score 2 Point Risk Factors: 0 Each Risk Factor Represents 3 Points: Age 75 Years or Greater Total Score 3 Point Risk Factors: 3 Each Risk Factor Represents 5 Points: None Total Score 5 Point Risk Factors: 0 Venous Thromboembolism Risk Factor Score *Q: 5 - Problem List (1) Back pain SNOMED Code(s): 424821289 ICD Code: M54.9 - DORSALGIA, UNSPECIFIED Status: Acute Current Visit: Yes (2) Weakness SNOMED Code(s): 48585385 ICD Code: R53.1 - WEAKNESS Status: Acute Current Visit: No (3) Dehydration SNOMED Code(s): 22507805 ICD Code: E86.0 - DEHYDRATION Status: Acute Current Visit: Yes (4) Recurrent falls SNOMED Code(s): 665915369 ICD Code: R29.6 - REPEATED FALLS Status: Acute Current Visit: Yes (5) A-fib SNOMED Code(s): 95965969 ICD Code: I48.91 - UNSPECIFIED ATRIAL FIBRILLATION Status: Chronic Priority: High Current Visit: No Qualifiers: Atrial fibrillation type: paroxysmal Qualified Code(s): I48.0 - Paroxysmal atrial fibrillation (6) Anticoagulant long-term use SNOMED Code(s): 367313195 ICD Code: Z79.01 - FCI (CURRENT) USE OF ANTICOAGULANTS Status: Chronic Current Visit: Yes (7) Systolic essential hypertension SNOMED Code(s): 505534844 ICD Code: I10 - ESSENTIAL (PRIMARY) HYPERTENSION Status: Chronic Current Visit: No (8) Diabetes type 2, controlled SNOMED Code(s): 86033905, 579114399 ICD Code: E11.9 - TYPE 2 DIABETES MELLITUS WITHOUT COMPLICATIONS Status: Chronic Current Visit: No Qualifiers: Diabetes mellitus mcfp insulin use: without mcfp use (9) Hypothyroidism SNOMED Code(s): 13152771 ICD Code: E03.9 - HYPOTHYROIDISM, UNSPECIFIED Status: Chronic Current Visit: No Qualifiers: Hypothyroidism type: acquired Qualified Code(s): E03.9 - Hypothyroidism, unspecified Problem List Initiated/Reviewed/Updated: Yes Orders Last 24hrs: Active Orders 24 hr Category Date Time Status Oxygen Therapy [RC] PRN Care 08/18/21 15:51 Ordered Up With Assistance [RC] ASDIRECTED Care 08/18/21 15:51 Ordered Up to Chair [RC] ASDIRECTED Care 08/18/21 15:51 Ordered VTE/DVT Education [RC] Per Unit Routine Care 08/18/21 15:51 Ordered Vital Signs [RC] QSHIFT Care 08/18/21 15:51 Ordered OT Evaluation and Treatment [CONS] Routine Cons 08/18/21 15:52 Ordered PT Evaluation and Treatment [CONS] Routine Cons 08/18/21 15:52 Ordered Regular Diet [DIET] Diet 08/18/21 Dinner Ordered BASIC METABOLIC PANEL,BMP [CHEM] Routine Lab 08/19/21 06:00 Ordered CBC WITH AUTO DIFF [HEME] Routine Lab 08/19/21 06:00 Ordered INR,PT,PROTHROMBIN TIME [COAG] Routine Lab 08/19/21 06:00 Ordered Acetaminophen [Tylenol Arthritis Pain] Med 08/18/21 15:42 Ordered 650 mg PO Q4H PRN Acetaminophen [Tylenol Extra Strength] Med 08/18/21 16:00 Ordered 500 mg PO Q6H Diltiazem [Cardizem CD] Med 08/19/21 09:00 Ordered 240 mg PO DAILY Famotidine [Pepcid] Med 08/18/21 21:00 Ordered 20 mg PO BID Levothyroxine [Synthroid] Med 08/23/21 06:00 Ordered 100 mcg PO MONROE@0600 Levothyroxine [Synthroid] Med 08/19/21 06:00 Ordered 50 mcg PO MOTUWETHFRSA@0600 Losartan [Cozaar] Med 08/19/21 09:00 Ordered 50 mg PO DAILY Pravastatin [Pravachol] Med 08/19/21 15:42 Ordered 20 mg PO MOWEFR Sodium Chloride 0.9% [Normal Saline] 1,000 ml Med 08/18/21 13:15 Active IV ASDIRECTED Sodium Chloride 0.9% [Saline Flush] Med 08/18/21 13:02 Active 10 ml FLUSH ASDIRECTED PRN Warfarin Sliding Scale [Coumadin Sliding Scale] Med 08/19/21 09:00 Ordered DOSE each PO DAILY metFORMIN [Glucophage] Med 08/18/21 18:00 Ordered 1,000 mg PO BIDMEALS traMADol [Ultram] Med 08/18/21 15:53 Ordered 50 mg PO Q6H PRN Saline Lock Insert [OM.PC] Routine Oth 08/18/21 13:02 Ordered Resuscitation Status Routine Resus Stat 08/18/21 15:51 Ordered EKG 12 Lead [EK] Routine Ther 08/18/21 14:37 Ordered Medication Orders Acetaminophen (Acetaminophen 650 Mg Tab.Er) 650 mg PO Q4H PRN PRN Reason: Pain Acetaminophen (Acetaminophen 500 Mg Tab) 500 mg PO Q6H NOLAN Famotidine (Famotidine 20 Mg Tab) 20 mg PO BID NOLAN Sodium Chloride (Normal Saline) 1,000 mls @ 100 mls/hr IV ASDIRECTED NOLAN Last Admin: 08/18/21 13:18 Dose: 125 mls/hr Documented by: GARRY Levothyroxine Sodium (Levothyroxine 50 Mcg Tab) 50 mcg PO MOTUWETHFRSA@0600 [facility] Levothyroxine Sodium (Levothyroxine 50 Mcg Tab) 100 mcg PO MONROE@0600 [facility] Losartan Potassium (Losartan 100 Mg Tab) 50 mg PO DAILY [facility] Metformin HCl (Metformin 1,000 Mg Tab) 1,000 mg PO BIDMEALS [facility] Non-Formulary Medication (Diltiazem [Cardizem Cd]) 240 mg PO DAILY [facility] Pravastatin Sodium (Pravastatin 20 Mg Tab) 20 mg PO MOWEFR [facility] Sodium Chloride (Sodium Chloride 0.9% 10 Ml Syringe) 10 ml FLUSH ASDIRECTED PRN PRN Reason: Keep Vein Open Tramadol HCl (Tramadol 50 Mg Tab) 50 mg PO Q6H PRN PRN Reason: Pain (moderate 4-6) Warfarin Sodium (Warfarin Sliding Scale) each PO DAILY [facility] Assessment/Plan Comment:: 1. Admit for observation back pain, recurrent falls, weakness. 2. Weakness, recurrent falls: PT/OT evaluate & treat; does have referral made by Dr Adler's office for [facility] for PT at discharge. 3. Dehydration, mild: WBC 11.3, Cr 1.1. NS at 100 ml/hr, reassess in am as to whether to continue. 4. Atrial fibrillation on coumadin: INR 2.73, Coumadin per pharmacy, keep closer to 2.0 with her recurrent falls. INR tomorrow am. 5. DM: continue Metformin. Eats regular diet at TTV. 6. Diet: Regular. 7. Activity: up to chair, with assistance. 8. DVT prophylaxis: therapeutic INR. 9. CODE STATUS: DNR/DNI. 10. Disposition: PT/OT evaluate & treat, anticipate 24-48 hours observation, adjust treatments as necessary. - Mortality Measure Prognosis:: Poor
[2021-08-18] MEDS ORDERED: Warfarin 5 MG Tab *PTOM PO ONE (16:30)
[2021-08-18] MEDS: Acetaminophen 500 MG Tab PO SCH ×2 (16:55→21:29)
[2021-08-18] MEDS: metFORMIN 1,000 MG Tab PO SCH (18:55)
[2021-08-18] MEDS: Famotidine 20 MG Tab PO SCH (21:29)
[2021-08-19] MEDS: Acetaminophen 500 MG Tab PO SCH ×4 (05:12→21:43)
[2021-08-19] MEDS: Levothyroxine 50 MCG Tab PO SCH (05:13)
[2021-08-19] MEDS: metFORMIN 1,000 MG Tab PO SCH ×2 (08:06→18:17)
[2021-08-19] MEDS: Losartan 50 MG Tab PO SCH (08:10)
[2021-08-19] MEDS: Famotidine 20 MG Tab PO SCH (08:11)
[2021-08-19] MEDS: Pravastatin 20 MG Tab PO SCH (08:12)
--- NOTE | 2021-08-19 08:24 | PCM.PN ---
- General Info Date of Service: 08/19/21 Subjective Update: Lima states she feels the same today, still has not had BM, last one she reports was 08/15. She takes prune juice normally. States weak getting up to the bathroom. Pain controlled. Functional Status: Reports: Pain Controlled, Tolerating Diet, Urinating - Patient Data Vitals - Most Recent: Last Vital Signs Temp 96.8 F L 08/19/21 05:15 Pulse 94 08/19/21 05:15 Resp 16 08/19/21 05:15 BP 143/69 H 08/19/21 08:10 Pulse Ox 95 08/19/21 05:15 Weight - Most Recent: 181 lb 9.6 oz I&O - Last 24 Hours: Intake & Output 08/18/21 08/19/21 08/19/21 22:59 06:59 14:59 Intake Total 983 714 Balance 983 714 Lab Results Last 24 Hours: Laboratory Results - last 24 hr 08/18/21 08/18/21 08/18/21 Range/Units 13:03 13:30 13:30 WBC 11.3 H (3.0-10.3) x10-3/uL RBC 3.70 (3.60-5.20) x10(6)uL Hgb 11.1 L (11.4-15.5) g/dL Hct 33.5 L (34.2-48.2) % MCV 90.4 (76.7-100.5) fL MCH 30.0 (23.9-33.9) pg MCHC 33.2 (31.9-34.8) g/dL RDW 15.5 (12.3-16.5) % Plt Count 218 (151-488) x10(3)uL MPV 7.8 (7.1-12.4) fL Neut % (Auto) 83.1 H (30.8-76.2) % Lymph % (Auto) 7.4 L (18.4-52.1) % [place] % (Auto) 8.9 (4.4-15.7) % Eos % (Auto) 0.1 L (0.6-8.1) % Baso % (Auto) 0.5 (0.2-1.5) % Neut # (Auto) 9.4 H (1.5-6.3) x10-3/uL Lymph # (Auto) 0.8 L (1.0-4.4) x10-3/uL [place] # (Auto) 1.0 (0.3-1.0) x10-3/uL Eos # (Auto) 0.0 (0.0-0.8) x10-3/uL Baso # (Auto) 0.1 (0.0-0.1) x10-3/uL PT 27.6 H (9.0-11.1) sec INR 2.73 H (1.00-1.24) Sodium (135-145) mmol/L Potassium (3.5-5.3) mmol/L Chloride (100-110) mmol/L Carbon Dioxide (21-32) mmol/L BUN (7-18) mg/dL Creatinine (0.55-1.02) mg/dL Est Cr Clr Drug Dosing mL/min Estimated GFR (MDRD) (>60) BUN/Creatinine Ratio (9-20) Glucose (80-116) mg/dL POC Glucose (80-116) mg/dL Calcium (8.6-10.2) mg/dL Total Bilirubin (0.1-1.3) mg/dL AST (5-25) IU/L ALT (12-36) U/L Alkaline Phosphatase (56-112) IU/L Total Protein (6.0-8.0) g/dL Albumin (3.2-4.6) g/dL Globulin g/dL Albumin/Globulin Ratio SARS-CoV-2 RNA (GORDO) Negative (NEGATIVE) 08/18/21 08/18/21 08/19/21 Range/Units 13:30 18:53 06:20 WBC 7.4 (3.0-10.3) x10-3/uL RBC 3.48 L (3.60-5.20) x10(6)uL Hgb 10.5 L (11.4-15.5) g/dL Hct 31.7 L (34.2-48.2) % MCV 91.1 (76.7-100.5) fL MCH 30.3 (23.9-33.9) pg MCHC 33.3 (31.9-34.8) g/dL RDW 16.0 (12.3-16.5) % Plt Count 201 (151-488) x10(3)uL MPV 7.9 (7.1-12.4) fL Neut % (Auto) 67.2 (30.8-76.2) % Lymph % (Auto) 18.4 (18.4-52.1) % [place] % (Auto) 10.9 (4.4-15.7) % Eos % (Auto) 2.8 (0.6-8.1) % Baso % (Auto) 0.7 (0.2-1.5) % Neut # (Auto) 5.0 (1.5-6.3) x10-3/uL Lymph # (Auto) 1.4 (1.0-4.4) x10-3/uL [place] # (Auto) 0.8 (0.3-1.0) x10-3/uL Eos # (Auto) 0.2 (0.0-0.8) x10-3/uL Baso # (Auto) 0.1 (0.0-0.1) x10-3/uL PT (9.0-11.1) sec INR (1.00-1.24) Sodium 139 (135-145) mmol/L Potassium 4.0 (3.5-5.3) mmol/L Chloride 102 (100-110) mmol/L Carbon Dioxide 28 (21-32) mmol/L BUN 15 (7-18) mg/dL Creatinine 1.1 H (0.55-1.02) mg/dL Est Cr Clr Drug Dosing 33.65 mL/min Estimated GFR (MDRD) 47 L (>60) BUN/Creatinine Ratio 13.6 (9-20) Glucose 180 H (80-116) mg/dL POC Glucose 159 H (80-116) mg/dL Calcium 8.8 (8.6-10.2) mg/dL Total Bilirubin 1.4 H (0.1-1.3) mg/dL AST 19 D (5-25) IU/L ALT 18 D (12-36) U/L Alkaline Phosphatase 117 H (56-112) IU/L Total Protein 6.6 (6.0-8.0) g/dL Albumin 3.2 (3.2-4.6) g/dL Globulin 3.4 g/dL Albumin/Globulin Ratio 0.9 SARS-CoV-2 RNA (GORDO) (NEGATIVE) 08/19/21 08/19/21 Range/Units 06:20 06:20 WBC (3.0-10.3) x10-3/uL RBC (3.60-5.20) x10(6)uL Hgb (11.4-15.5) g/dL Hct (34.2-48.2) % MCV (76.7-100.5) fL MCH (23.9-33.9) pg MCHC (31.9-34.8) g/dL RDW (12.3-16.5) % Plt Count (151-488) x10(3)uL MPV (7.1-12.4) fL Neut % (Auto) (30.8-76.2) % Lymph % (Auto) (18.4-52.1) % [place] % (Auto) (4.4-15.7) % Eos % (Auto) (0.6-8.1) % Baso % (Auto) (0.2-1.5) % Neut # (Auto) (1.5-6.3) x10-3/uL Lymph # (Auto) (1.0-4.4) x10-3/uL [place] # (Auto) (0.3-1.0) x10-3/uL Eos # (Auto) (0.0-0.8) x10-3/uL Baso # (Auto) (0.0-0.1) x10-3/uL PT 28.7 H (9.0-11.1) sec INR 2.85 H (1.00-1.24) Sodium 139 (135-145) mmol/L Potassium 3.5 (3.5-5.3) mmol/L Chloride 105 (100-110) mmol/L Carbon Dioxide 26 (21-32) mmol/L BUN 20 H (7-18) mg/dL Creatinine 1.2 H (0.55-1.02) mg/dL Est Cr Clr Drug Dosing 30.84 mL/min Estimated GFR (MDRD) 43 L (>60) BUN/Creatinine Ratio 16.7 (9-20) Glucose 129 H (80-116) mg/dL POC Glucose (80-116) mg/dL Calcium 8.5 L (8.6-10.2) mg/dL Total Bilirubin (0.1-1.3) mg/dL AST (5-25) IU/L ALT (12-36) U/L Alkaline Phosphatase (56-112) IU/L Total Protein (6.0-8.0) g/dL Albumin (3.2-4.6) g/dL Globulin g/dL Albumin/Globulin Ratio SARS-CoV-2 RNA (GORDO) (NEGATIVE) Med Orders - Current: Current Medications Acetaminophen (Acetaminophen 650 Mg Tab.Er) 650 mg PO Q4H PRN PRN Reason: Pain Acetaminophen (Acetaminophen 500 Mg Tab) 500 mg PO Q6H [facility] Last Admin: 08/19/21 05:12 Dose: 500 mg Documented by: Famotidine (Famotidine 20 Mg Tab *Ptom) 20 mg PO BID [facility] Last Admin: 08/19/21 08:11 Dose: 20 mg Documented by: Sodium Chloride (Normal Saline) 1,000 mls @ 75 mls/hr IV ASDIRECTED [facility] Last Admin: 08/18/21 22:06 Dose: 100 mls/hr Documented by: Levothyroxine Sodium (Levothyroxine 50 Mcg Tab *Ptom) 50 mcg PO MOTUWETHFRSA@0600 [facility] Last Admin: 08/19/21 05:13 Dose: 50 mcg Documented by: Levothyroxine Sodium (Levothyroxine 50 Mcg Tab) 100 mcg PO MONROE@0600 [facility] Losartan Potassium (Losartan 50 Mg Tab *Ptom) 50 mg PO DAILY [facility] Last Admin: 08/19/21 08:10 Dose: 50 mg Documented by: Metformin HCl (Metformin 1,000 Mg Tab *Ptom) 1,000 mg PO BIDMEALS [facility] Last Admin: 08/19/21 08:06 Dose: 1,000 mg Documented by: (Diltiazem [Cardizem Cd] 240 Mg Cap.Cd) *Ptom 240 mg PO DAILY [facility] Last Admin: 08/19/21 08:11 Dose: 240 mg Documented by: Pravastatin Sodium (Pravastatin 20 Mg Tab *Ptom) 20 mg PO MOWEFR [facility] Last Admin: 08/19/21 08:12 Dose: 20 mg Documented by: Sodium Chloride (Sodium Chloride 0.9% 10 Ml Syringe) 10 ml FLUSH ASDIRECTED PRN PRN Reason: Keep Vein Open Tramadol HCl (Tramadol 50 Mg Tab) 50 mg PO Q6H PRN PRN Reason: Pain (moderate 4-6) Warfarin Sodium (Warfarin Sliding Scale) 1 each PO ASDIRECTED NOLAN Discontinued Medications Ketorolac Tromethamine (Ketorolac 30 Mg/Ml Sdv) 30 mg IM ONETIME ONE Stop: 08/18/21 11:25 Last Admin: 08/18/21 11:31 Dose: 30 mg Documented by: Ondansetron HCl (Ondansetron 4 Mg Tab.Dis) 4 mg PO ONETIME ONE Stop: 08/18/21 11:25 Last Admin: 08/18/21 11:30 Dose: 4 mg Documented by: Tramadol HCl (Tramadol 50 Mg Tab) 100 mg PO ONETIME ONE Stop: 08/18/21 11:25 Last Admin: 08/18/21 11:30 Dose: 100 mg Documented by: Warfarin Sodium (Warfarin 5 Mg Tab *Ptom) 2.5 mg PO ONETIME ONE Stop: 08/18/21 16:31 Last Admin: 08/18/21 16:57 Dose: 2.5 mg Documented by: - Exam General: Alert, Oriented, Cooperative Lungs: Clear to Auscultation, Normal Respiratory Effort, Decreased Breath Sounds (Bibasilar). No: Crackles, Rhonchi, Wheezing Cardiovascular: Regular Rate, Irregular Rhythm GI/Abdominal Exam: Normal Bowel Sounds, Soft, Non-Tender, No Distention - Patient Data Lab Results Last 24 hrs: Laboratory Results - last 24 hr 08/18/21 08/18/21 08/18/21 Range/Units 13:03 13:30 13:30 WBC 11.3 H (3.0-10.3) x10-3/uL RBC 3.70 (3.60-5.20) x10(6)uL Hgb 11.1 L (11.4-15.5) g/dL Hct 33.5 L (34.2-48.2) % MCV 90.4 (76.7-100.5) fL MCH 30.0 (23.9-33.9) pg MCHC 33.2 (31.9-34.8) g/dL RDW 15.5 (12.3-16.5) % Plt Count 218 (151-488) x10(3)uL MPV 7.8 (7.1-12.4) fL Neut % (Auto) 83.1 H (30.8-76.2) % Lymph % (Auto) 7.4 L (18.4-52.1) % [place] % (Auto) 8.9 (4.4-15.7) % Eos % (Auto) 0.1 L (0.6-8.1) % Baso % (Auto) 0.5 (0.2-1.5) % Neut # (Auto) 9.4 H (1.5-6.3) x10-3/uL Lymph # (Auto) 0.8 L (1.0-4.4) x10-3/uL [place] # (Auto) 1.0 (0.3-1.0) x10-3/uL Eos # (Auto) 0.0 (0.0-0.8) x10-3/uL Baso # (Auto) 0.1 (0.0-0.1) x10-3/uL PT 27.6 H (9.0-11.1) sec INR 2.73 H (1.00-1.24) Sodium (135-145) mmol/L Potassium (3.5-5.3) mmol/L Chloride (100-110) mmol/L Carbon Dioxide (21-32) mmol/L BUN (7-18) mg/dL Creatinine (0.55-1.02) mg/dL Est Cr Clr Drug Dosing mL/min Estimated GFR (MDRD) (>60) BUN/Creatinine Ratio (9-20) Glucose (80-116) mg/dL POC Glucose (80-116) mg/dL Calcium (8.6-10.2) mg/dL Total Bilirubin (0.1-1.3) mg/dL AST (5-25) IU/L ALT (12-36) U/L Alkaline Phosphatase (56-112) IU/L Total Protein (6.0-8.0) g/dL Albumin (3.2-4.6) g/dL Globulin g/dL Albumin/Globulin Ratio SARS-CoV-2 RNA (GORDO) Negative (NEGATIVE) 08/18/21 08/18/21 08/19/21 Range/Units 13:30 18:53 06:20 WBC 7.4 (3.0-10.3) x10-3/uL RBC 3.48 L (3.60-5.20) x10(6)uL Hgb 10.5 L (11.4-15.5) g/dL Hct 31.7 L (34.2-48.2) % MCV 91.1 (76.7-100.5) fL MCH 30.3 (23.9-33.9) pg MCHC 33.3 (31.9-34.8) g/dL RDW 16.0 (12.3-16.5) % Plt Count 201 (151-488) x10(3)uL MPV 7.9 (7.1-12.4) fL Neut % (Auto) 67.2 (30.8-76.2) % Lymph % (Auto) 18.4 (18.4-52.1) % [place] % (Auto) 10.9 (4.4-15.7) % Eos % (Auto) 2.8 (0.6-8.1) % Baso % (Auto) 0.7 (0.2-1.5) % Neut # (Auto) 5.0 (1.5-6.3) x10-3/uL Lymph # (Auto) 1.4 (1.0-4.4) x10-3/uL [place] # (Auto) 0.8 (0.3-1.0) x10-3/uL Eos # (Auto) 0.2 (0.0-0.8) x10-3/uL Baso # (Auto) 0.1 (0.0-0.1) x10-3/uL PT (9.0-11.1) sec INR (1.00-1.24) Sodium 139 (135-145) mmol/L Potassium 4.0 (3.5-5.3) mmol/L Chloride 102 (100-110) mmol/L Carbon Dioxide 28 (21-32) mmol/L BUN 15 (7-18) mg/dL Creatinine 1.1 H (0.55-1.02) mg/dL Est Cr Clr Drug Dosing 33.65 mL/min Estimated GFR (MDRD) 47 L (>60) BUN/Creatinine Ratio 13.6 (9-20) Glucose 180 H (80-116) mg/dL POC Glucose 159 H (80-116) mg/dL Calcium 8.8 (8.6-10.2) mg/dL Total Bilirubin 1.4 H (0.1-1.3) mg/dL AST 19 D (5-25) IU/L ALT 18 D (12-36) U/L Alkaline Phosphatase 117 H (56-112) IU/L Total Protein 6.6 (6.0-8.0) g/dL Albumin 3.2 (3.2-4.6) g/dL Globulin 3.4 g/dL Albumin/Globulin Ratio 0.9 SARS-CoV-2 RNA (GORDO) (NEGATIVE) 08/19/21 08/19/21 Range/Units 06:20 06:20 WBC (3.0-10.3) x10-3/uL RBC (3.60-5.20) x10(6)uL Hgb (11.4-15.5) g/dL Hct (34.2-48.2) % MCV (76.7-100.5) fL MCH (23.9-33.9) pg MCHC (31.9-34.8) g/dL RDW (12.3-16.5) % Plt Count (151-488) x10(3)uL MPV (7.1-12.4) fL Neut % (Auto) (30.8-76.2) % Lymph % (Auto) (18.4-52.1) % [place] % (Auto) (4.4-15.7) % Eos % (Auto) (0.6-8.1) % Baso % (Auto) (0.2-1.5) % Neut # (Auto) (1.5-6.3) x10-3/uL Lymph # (Auto) (1.0-4.4) x10-3/uL [place] # (Auto) (0.3-1.0) x10-3/uL Eos # (Auto) (0.0-0.8) x10-3/uL Baso # (Auto) (0.0-0.1) x10-3/uL PT 28.7 H (9.0-11.1) sec INR 2.85 H (1.00-1.24) Sodium 139 (135-145) mmol/L Potassium 3.5 (3.5-5.3) mmol/L Chloride 105 (100-110) mmol/L Carbon Dioxide 26 (21-32) mmol/L BUN 20 H (7-18) mg/dL Creatinine 1.2 H (0.55-1.02) mg/dL Est Cr Clr Drug Dosing 30.84 mL/min Estimated GFR (MDRD) 43 L (>60) BUN/Creatinine Ratio 16.7 (9-20) Glucose 129 H (80-116) mg/dL POC Glucose (80-116) mg/dL Calcium 8.5 L (8.6-10.2) mg/dL Total Bilirubin (0.1-1.3) mg/dL AST (5-25) IU/L ALT (12-36) U/L Alkaline Phosphatase (56-112) IU/L Total Protein (6.0-8.0) g/dL Albumin (3.2-4.6) g/dL Globulin g/dL Albumin/Globulin Ratio SARS-CoV-2 RNA (GORDO) (NEGATIVE) Result Diagrams: 08/19/21 06:20 08/19/21 06:20 Sepsis Event Note - Evaluation Sepsis Screening Result: No Definite Risk - Focused Exam Vital Signs: Vital Signs Temp Pulse Resp BP BP Pulse Ox 08/19/21 08:10 143/69 H 08/19/21 05:15 96.8 F L 94 16 124/60 95 08/19/21 00:00 97.2 F 98 16 138/72 96 - Problem List & Annotations (1) Back pain SNOMED Code(s): 020083691 Code(s): M54.9 - DORSALGIA, UNSPECIFIED Status: Acute Current Visit: Yes (2) Weakness SNOMED Code(s): 75880890 Code(s): R53.1 - WEAKNESS Status: Acute Current Visit: No (3) Dehydration SNOMED Code(s): 31815517 Code(s): E86.0 - DEHYDRATION Status: Acute Current Visit: Yes (4) Recurrent falls SNOMED Code(s): 408687432 Code(s): R29.6 - REPEATED FALLS Status: Acute Current Visit: Yes (5) A-fib SNOMED Code(s): 65937839 Code(s): I48.91 - UNSPECIFIED ATRIAL FIBRILLATION Status: Chronic Priority: High Current Visit: No Qualifiers: Atrial fibrillation type: paroxysmal Qualified Code(s): I48.0 - Paroxysmal atrial fibrillation (6) Anticoagulant long-term use SNOMED Code(s): 179366811 Code(s): Z79.01 - SECURITY ASSISTANT (CURRENT) USE OF ANTICOAGULANTS Status: Chronic Current Visit: Yes (7) Systolic essential hypertension SNOMED Code(s): 607121002 Code(s): I10 - ESSENTIAL (PRIMARY) HYPERTENSION Status: Chronic Current Visit: No (8) Diabetes type 2, controlled SNOMED Code(s): 78937588, 183218124 Code(s): E11.9 - TYPE 2 DIABETES MELLITUS WITHOUT COMPLICATIONS Status: Chronic Current Visit: No Qualifiers: Diabetes mellitus exterminator helper termite insulin use: without fpc use (9) Hypothyroidism SNOMED Code(s): 78318714 Code(s): E03.9 - HYPOTHYROIDISM, UNSPECIFIED Status: Chronic Current Visit: No Qualifiers: Hypothyroidism type: acquired Qualified Code(s): E03.9 - Hypothyroidism, unspecified - Problem List Review Problem List Initiated/Reviewed/Updated: Yes - My Orders Last 24 Hours: My Active Orders 08/18/21 15:42 Acetaminophen [Tylenol Arthritis Pain] 650 mg PO Q4H PRN 08/18/21 15:51 Oxygen Therapy [RC] .PRN Up With Assistance [RC] ASDIRECTED Up to Chair [RC] ASDIRECTED VTE/DVT Education [RC] Per Unit Routine Vital Signs [RC] QSHIFT Resuscitation Status Routine 08/18/21 15:52 OT Evaluation and Treatment [CONS] Routine PT Evaluation and Treatment [CONS] Routine 08/18/21 15:53 traMADol [Ultram] 50 mg PO Q6H PRN 08/18/21 16:00 Acetaminophen [Tylenol Extra Strength] 500 mg PO Q6H 08/18/21 Dinner Regular Diet [DIET] 08/18/21 18:00 metFORMIN [Glucophage] 1,000 mg PO BIDMEALS 08/18/21 18:27 Accu Check [Blood Glucose Check, Bedside] [RC] 07,17 08/18/21 21:00 Famotidine [Pepcid] 20 mg PO BID 08/19/21 06:00 Levothyroxine [Synthroid] 50 mcg PO MOTUWETHSA@0600 08/19/21 09:00 Diltiazem [Cardizem CD] 240 mg PO DAILY Losartan [Cozaar] 50 mg PO DAILY Pravastatin [Pravachol] 20 mg PO MOWEFR Warfarin Sliding Scale [Coumadin Sliding Scale] 1 each PO ASDIRECTED 08/23/21 06:00 Levothyroxine [Synthroid] 100 mcg PO MONROE@0600 - Plan Plan:: 1. Weakness, recurrent falls: PT/OT evaluate & treat; does have referral made by Dr Adler's office for [facility] for PT at discharge. 2. Dehydration, mild: WBC 7.4, Cr 1.2, did receive dose of Toradol yesterday, repeat tomorrow. NS at 75 ml/hr. 3. Atrial fibrillation on coumadin: INR 2.85, Coumadin per pharmacy, keep closer to 2.0 with her recurrent falls. INR tomorrow am. 4. Disposition: PT/OT evaluate & treat, anticipate 24-48 hours observation, adjust treatments as necessary.
[2021-08-19] MEDS: Sodium Chloride 0.9% 1,000 ML IV SCH ×2 (08:49→21:49)
[2021-08-19] MEDS ORDERED: [UNRECOGNIZED DRUG - OTHER] PO SCH (09:00)
[2021-08-19] MEDS ORDERED: Warfarin Sliding Scale PO SCH (09:00)
[2021-08-19] MEDS ORDERED: DILTIAZEM PO SCH (09:00)
[2021-08-19] MEDS ORDERED: Warfarin 2.5 MG Tab PO ONE (16:00)
[2021-08-20] MEDS: Acetaminophen 500 MG Tab PO SCH ×3 (05:06→16:36)
[2021-08-20] MEDS: Levothyroxine 50 MCG Tab PO SCH (05:07)
[2021-08-20] MEDS: metFORMIN 1,000 MG Tab PO SCH ×2 (07:52→17:12)
[2021-08-20] MEDS ORDERED: cefTRIAXone 1 GM in Sodium Chloride 0.9% 50 ML IV ONE (08:04)
[2021-08-20] MEDS: Losartan 50 MG Tab PO SCH (08:06)
[2021-08-20] MEDS: Diltiazem 240 MG Cap.ER PO SCH (08:07)
[2021-08-20] MEDS: Famotidine 20 MG Tab PO SCH (08:09)
[2021-08-20] MEDS ORDERED: Lidocaine 4% 1 each Patch TOP SCH (09:00)
--- NOTE | 2021-08-20 09:11 | PCM.PN ---
- General Info Date of Service: 08/20/21 Subjective Update: Lima pain is mainly low back, nurses had to use lift last night to take to the toilet due to weakness/pain. She is willing to try some Lidocaine on her back today. She has been eating and drinking well. No cough. No BM yet. Prune juice this morning. Runny nose which she states she has had since January/February when they took fluid off her spine. States she has been going more frequently, small amounts. Her UA had moderate LE, but also moderate epithelial cells, no RBCs, 10-20 WBCs. UC pending. - Patient Data Vitals - Most Recent: Last Vital Signs Temp 97.7 F 08/20/21 07:49 Pulse 80 08/20/21 07:49 Resp 18 08/20/21 07:49 BP 130/64 08/20/21 08:06 Pulse Ox 95 08/20/21 07:49 Weight - Most Recent: 191 lb 8 oz I&O - Last 24 Hours: Intake & Output 08/19/21 08/20/21 08/20/21 22:59 06:59 14:59 Intake Total 499 560 Balance 499 560 Lab Results Last 24 Hours: Laboratory Results - last 24 hr 08/19/21 08/19/21 08/19/21 Range/Units 18:15 21:30 21:35 PT (9.0-11.1) sec INR (1.00-1.24) Sodium (135-145) mmol/L Potassium (3.5-5.3) mmol/L Chloride (100-110) mmol/L Carbon Dioxide (21-32) mmol/L BUN (7-18) mg/dL Creatinine (0.55-1.02) mg/dL Est Cr Clr Drug Dosing mL/min Estimated GFR (MDRD) (>60) BUN/Creatinine Ratio (9-20) Glucose (80-116) mg/dL POC Glucose 130 H 120 H (80-116) mg/dL Calcium (8.6-10.2) mg/dL Urine Color Yellow (YELLOW) Urine Appearance Slightly cloudy (CLEAR) Urine pH 5.0 (5.0-6.5) Ur Specific [place] 1.025 (1.010-1.025) Urine Protein Trace (NEGATIVE) mg/dL Urine Glucose (UA) Normal (NORMAL) mg/dL Urine Ketones Negative (NEGATIVE) mg/dL Urine Occult Blood Negative (NEGATIVE) Urine Nitrite Negative (NEGATIVE) Urine Bilirubin Negative (NEGATIVE) Urine Urobilinogen Normal (NEGATIVE) mg/dL Ur Leukocyte Esterase Moderate H (NEGATIVE) Urine RBC 0-5 (0-5) Urine WBC 10-20 H (0-5) Ur Squamous Epith Cells Moderate H (NS,R,O) Urine Bacteria Few H (NS) 08/20/21 08/20/21 Range/Units 06:00 06:00 PT 38.5 H* (9.0-11.1) sec INR 3.89 H (1.00-1.24) Sodium 138 (135-145) mmol/L Potassium 3.8 (3.5-5.3) mmol/L Chloride 106 (100-110) mmol/L Carbon Dioxide 23 (21-32) mmol/L BUN 18 (7-18) mg/dL Creatinine 1.1 H (0.55-1.02) mg/dL Est Cr Clr Drug Dosing 33.65 mL/min Estimated GFR (MDRD) 47 L (>60) BUN/Creatinine Ratio 16.4 (9-20) Glucose 173 H (80-116) mg/dL POC Glucose (80-116) mg/dL Calcium 8.3 L (8.6-10.2) mg/dL Urine Color (YELLOW) Urine Appearance (CLEAR) Urine pH (5.0-6.5) Ur Specific [place] (1.010-1.025) Urine Protein (NEGATIVE) mg/dL Urine Glucose (UA) (NORMAL) mg/dL Urine Ketones (NEGATIVE) mg/dL Urine Occult Blood (NEGATIVE) Urine Nitrite (NEGATIVE) Urine Bilirubin (NEGATIVE) Urine Urobilinogen (NEGATIVE) mg/dL Ur Leukocyte Esterase (NEGATIVE) Urine RBC (0-5) Urine WBC (0-5) Ur Squamous Epith Cells (NS,R,O) Urine Bacteria (NS) Med Orders - Current: Current Medications Acetaminophen (Acetaminophen 500 Mg Tab) 1,000 mg PO Q8H [facility] Last Admin: 08/20/21 08:17 Dose: 1,000 mg Documented by: Diltiazem HCl (Diltiazem 240 Mg Cap.Er) 240 mg PO DAILY [facility] Last Admin: 08/20/21 08:07 Dose: 240 mg Documented by: Famotidine (Famotidine 20 Mg Tab) 20 mg PO DAILY [facility] Last Admin: 08/20/21 08:09 Dose: 20 mg Documented by: Levothyroxine Sodium (Levothyroxine 50 Mcg Tab) 50 mcg PO MOTUWETHFRSA@0600 [facility] Last Admin: 08/20/21 05:07 Dose: 50 mcg Documented by: Levothyroxine Sodium (Levothyroxine 50 Mcg Tab) 100 mcg PO MONROE@0600 [facility] Lidocaine (Lidocaine 4% 1 Each Patch) 1 each TOP DAILY [facility] Last Admin: 08/20/21 08:29 Dose: 1 each Documented by: Losartan Potassium (Losartan 50 Mg Tab) 50 mg PO DAILY [facility] Last Admin: 08/20/21 08:06 Dose: 50 mg Documented by: Metformin HCl (Metformin 1,000 Mg Tab) 1,000 mg PO BIDMEALS [facility] Last Admin: 08/20/21 07:52 Dose: 1,000 mg Documented by: Miscellaneous Information (Remove Patch) 1 ea TRDERM BEDTIME [facility] Pravastatin Sodium (Pravastatin 20 Mg Tab) 20 mg PO MOWEFR [facility] Last Admin: 08/19/21 08:12 Dose: 20 mg Documented by: Sodium Chloride (Sodium Chloride 0.9% 10 Ml Syringe) 10 ml FLUSH ASDIRECTED PRN PRN Reason: Keep Vein Open Tramadol HCl (Tramadol 50 Mg Tab) 50 mg PO Q6H PRN PRN Reason: Pain (moderate 4-6) Warfarin Sodium (Warfarin Sliding Scale) 1 each PO ASDIRECTED [facility] Discontinued Medications Acetaminophen (Acetaminophen 650 Mg Tab.Er) 650 mg PO Q4H PRN PRN Reason: Pain Acetaminophen (Acetaminophen 500 Mg Tab) 500 mg PO Q6H [facility] Last Admin: 08/20/21 05:06 Dose: 500 mg Documented by: Famotidine (Famotidine 20 Mg Tab) 20 mg PO BID [facility] Last Admin: 08/19/21 08:11 Dose: 20 mg Documented by: Sodium Chloride (Normal Saline) 1,000 mls @ 75 mls/hr IV ASDIRECTED [facility] Last Admin: 08/19/21 21:49 Dose: 75 mls/hr Documented by: Ceftriaxone Sodium 1 gm/ (Sodium Chloride) 50 mls @ 200 mls/hr IV ONETIME ONE Stop: 08/20/21 08:18 Last Admin: 08/20/21 08:18 Dose: 200 mls/hr Documented by: Ketorolac Tromethamine (Ketorolac 30 Mg/Ml Sdv) 30 mg IM ONETIME ONE Stop: 08/18/21 11:25 Last Admin: 08/18/21 11:31 Dose: 30 mg Documented by: (Diltiazem [Cardizem Cd] 240 Mg Cap.Cd) *Ptom 240 mg PO DAILY [facility] Last Admin: 08/19/21 08:11 Dose: 240 mg Documented by: Ondansetron HCl (Ondansetron 4 Mg Tab.Dis) 4 mg PO ONETIME ONE Stop: 08/18/21 11:25 Last Admin: 08/18/21 11:30 Dose: 4 mg Documented by: Tramadol HCl (Tramadol 50 Mg Tab) 100 mg PO ONETIME ONE Stop: 08/18/21 11: Last Admin: 08/18/21 11:30 Dose: 100 mg Documented by: Warfarin Sodium (Warfarin 5 Mg Tab *Ptom) 2.5 mg PO ONETIME ONE Stop: 08/18/21 16:31 Last Admin: 08/18/21 16:57 Dose: 2.5 mg Documented by: Warfarin Sodium (Warfarin 2.5 Mg Tab) 2.5 mg PO ONETIME ONE Stop: 08/19/21 16:01 Last Admin: 08/19/21 16:12 Dose: 2.5 mg Documented by: - Exam General: Alert, Oriented, Cooperative, No Acute Distress HEENT: Other (Clear rhinorhea.) Lungs: Clear to Auscultation, Normal Respiratory Effort, Decreased Breath Sounds (bibasilar). No: Crackles, Wheezing Cardiovascular: Regular Rate, Irregular Rhythm GI/Abdominal Exam: Normal Bowel Sounds, Soft, Non-Tender, No Distention Back Exam: No: Muscle Spasm, Paraspinal Tenderness, Vertebral Tenderness Extremities: Pedal Edema (trace BLE) Peripheral Pulses: 2+: Radial (L), Radial (R) - Patient Data Lab Results Last 24 hrs: Laboratory Results - last 24 hr 08/19/21 08/19/21 08/19/21 Range/Units 18:15 21:30 21:35 PT (9.0-11.1) sec INR (1.00-1.24) Sodium (135-145) mmol/L Potassium (3.5-5.3) mmol/L Chloride (100-110) mmol/L Carbon Dioxide (21-32) mmol/L BUN (7-18) mg/dL Creatinine (0.55-1.02) mg/dL Est Cr Clr Drug Dosing mL/min Estimated GFR (MDRD) (>60) BUN/Creatinine Ratio (9-20) Glucose (80-116) mg/dL POC Glucose 130 H 120 H (80-116) mg/dL Calcium (8.6-10.2) mg/dL Urine Color Yellow (YELLOW) Urine Appearance Slightly cloudy (CLEAR) Urine pH 5.0 (5.0-6.5) Ur Specific [place] 1.025 (1.010-1.025) Urine Protein Trace (NEGATIVE) mg/dL Urine Glucose (UA) Normal (NORMAL) mg/dL Urine Ketones Negative (NEGATIVE) mg/dL Urine Occult Blood Negative (NEGATIVE) Urine Nitrite Negative (NEGATIVE) Urine Bilirubin Negative (NEGATIVE) Urine Urobilinogen Normal (NEGATIVE) mg/dL Ur Leukocyte Esterase Moderate H (NEGATIVE) Urine RBC 0-5 (0-5) Urine WBC 10-20 H (0-5) Ur Squamous Epith Cells Moderate H (NS,R,O) Urine Bacteria Few H (NS) 08/20/21 08/20/21 Range/Units 06:00 06:00 PT 38.5 H* (9.0-11.1) sec INR 3.89 H (1.00-1.24) Sodium 138 (135-145) mmol/L Potassium 3.8 (3.5-5.3) mmol/L Chloride 106 (100-110) mmol/L Carbon Dioxide 23 (21-32) mmol/L BUN 18 (7-18) mg/dL Creatinine 1.1 H (0.55-1.02) mg/dL Est Cr Clr Drug Dosing 33.65 mL/min Estimated GFR (MDRD) 47 L (>60) BUN/Creatinine Ratio 16.4 (9-20) Glucose 173 H (80-116) mg/dL POC Glucose (80-116) mg/dL Calcium 8.3 L (8.6-10.2) mg/dL Urine Color (YELLOW) Urine Appearance (CLEAR) Urine pH (5.0-6.5) Ur Specific [place] (1.010-1.025) Urine Protein (NEGATIVE) mg/dL Urine Glucose (UA) (NORMAL) mg/dL Urine Ketones (NEGATIVE) mg/dL Urine Occult Blood (NEGATIVE) Urine Nitrite (NEGATIVE) Urine Bilirubin (NEGATIVE) Urine Urobilinogen (NEGATIVE) mg/dL Ur Leukocyte Esterase (NEGATIVE) Urine RBC (0-5) Urine WBC (0-5) Ur Squamous Epith Cells (NS,R,O) Urine Bacteria (NS) Result Diagrams: 08/19/21 06:20 08/20/21 06:00 Sepsis Event Note - Evaluation Sepsis Screening Result: No Definite Risk - Focused Exam Vital Signs: Vital Signs Temp Pulse Resp BP BP Pulse Ox 08/20/21 08:06 130/64 08/20/21 07:49 97.7 F 80 18 130/64 95 08/19/21 22:00 98.9 F 94 16 142/61 H 97 - Problem List & Annotations (1) Back pain SNOMED Code(s): 357929178 Code(s): M54.9 - DORSALGIA, UNSPECIFIED Status: Acute Current Visit: Yes Qualifiers: Back pain location: low back pain (2) Weakness SNOMED Code(s): 98989641 Code(s): R53.1 - WEAKNESS Status: Acute Current Visit: No (3) Dehydration SNOMED Code(s): 37925318 Code(s): E86.0 - DEHYDRATION Status: Resolved Current Visit: Yes (4) Recurrent falls SNOMED Code(s): 933330648 Code(s): R29.6 - REPEATED FALLS Status: Acute Current Visit: Yes (5) A-fib SNOMED Code(s): 19196123 Code(s): I48.91 - UNSPECIFIED ATRIAL FIBRILLATION Status: Chronic Priority: High Current Visit: No Qualifiers: Atrial fibrillation type: paroxysmal Qualified Code(s): I48.0 - Paroxysmal atrial fibrillation (6) Anticoagulant long-term use SNOMED Code(s): 978261253 Code(s): Z79.01 - [employer]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[employer]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 (CURRENT) USE OF ANTICOAGULANTS Status: Chronic Current Visit: Yes (7) Systolic essential hypertension SNOMED Code(s): 784873612 Code(s): I10 - ESSENTIAL (PRIMARY) HYPERTENSION Status: Chronic Current Visit: No (8) Diabetes type 2, controlled SNOMED Code(s): 74529267, 575477368 Code(s): E11.9 - TYPE 2 DIABETES MELLITUS WITHOUT COMPLICATIONS Status: Chronic Current Visit: No Qualifiers: Diabetes mellitus custodial insulin use: without custodial use (9) Hypothyroidism SNOMED Code(s): 15402582 Code(s): E03.9 - HYPOTHYROIDISM, UNSPECIFIED Status: Chronic Current Visit: No Qualifiers: Hypothyroidism type: acquired Qualified Code(s): E03.9 - Hypothyroidism, unspecified (10) Abnormal finding on urinalysis SNOMED Code(s): 159992788 Code(s): R82.90 - UNSPECIFIED ABNORMAL FINDINGS IN URINE Status: Acute Current Visit: Yes Annotation/Comment:: Voided UA: looks contaminated sample due to moderate amount of epithelial cells. No RBCs or nitrites positive. Moderate LE, moderate epithelials and few bacteria. Will give Rocephin 1 g x1. UC should be back this evening, adjust as needed. She does have some frequency but also on IV fluids. - Problem List Review Problem List Initiated/Reviewed/Updated: Yes - My Orders Last 24 Hours: My Active Orders 08/19/21 09:00 Losartan [Cozaar] 50 mg PO DAILY Pravastatin [Pravachol] 20 mg PO MOWEFR Warfarin Sliding Scale [Coumadin Sliding Scale] 1 each PO ASDIRECTED 08/19/21 09:35 Patient Status [ADT] Routine 08/19/21 21:35 CULTURE URINE [RM] Routine 08/20/21 08:00 Acetaminophen [Tylenol Extra Strength] 1,000 mg PO Q8H 08/20/21 08:05 Convert IV to Peripheral Lock [Convert IV to Saline Lock] [OM.PC] Routine 08/20/21 08:07 Cooling Warming Measures [RC] ASDIRECTED Heat Therapy [OM.PC] Routine 08/20/21 09:00 Diltiazem [Dilacor XR] 240 mg PO DAILY Famotidine [Pepcid] 20 mg PO DAILY Lidocaine 4% [Aspercreme 4%] 1 each TOP DAILY 08/20/21 21:00 Remove Patch 1 ea TRDERM BEDTIME 08/21/21 06:00 BASIC METABOLIC PANEL,BMP [CHEM] Routine 08/21/21 08:00 INR,PT,PROTHROMBIN TIME [COAG] DAILY 08/22/21 08:00 INR,PT,PROTHROMBIN TIME [COAG] DAILY 08/23/21 06:00 Levothyroxine [Synthroid] 100 mcg PO MONROE@0600 08/23/21 08:00 INR,PT,PROTHROMBIN TIME [COAG] DAILY 08/24/21 08:00 INR,PT,PROTHROMBIN TIME [COAG] DAILY - Plan Plan:: 1. Weakness, recurrent falls: Increase Tylenol 1000 mg q8h, Lidocaine patch to low back, q12h. Tramadol 50 mg q6h as needed pain. PT/OT recommended she stay for therapy, possible swing bed over the weekend; does have referral made by Dr Adler's office for [facility] for PT at discharge. 2. Dehydration, mild: resolved, Cr 1.1. Will saline lock. 3. Atrial fibrillation on Coumadin: INR 3.89, Coumadin per pharmacy, keep closer to 2.0 with her recurrent falls. HOLD DOSE TODAY. INR tomorrow am. 4. Abnormal UA: moderate leukocyte esterase, moderate epithelial cells, few bacteria, 10-20 WBCs. No blood, nitrites, or RBCs. Likely contamination but will give Rocephin while waiting for culture results. Adjust as needed. 5. Disposition: PT/OT continue, changed to inpatient yesterday, anticipate transfer to swing bed over the or Tuesday. Adjust treatments as necessary.
[2021-08-21] MEDS: Acetaminophen 500 MG Tab PO SCH ×3 (00:53→16:59)
[2021-08-21] MEDS: Levothyroxine 50 MCG Tab PO SCH (05:02)
[2021-08-21] MEDS: Losartan 50 MG Tab PO SCH (08:53)
[2021-08-21] MEDS: metFORMIN 1,000 MG Tab PO SCH ×2 (08:53→16:59)
[2021-08-21] MEDS: Famotidine 20 MG Tab PO SCH (08:54)
[2021-08-21] MEDS: Pravastatin 20 MG Tab PO SCH (08:54)
[2021-08-21] MEDS: Diltiazem 240 MG Cap.ER PO SCH (08:54)
[2021-08-21] MEDS: Lidocaine 4% 1 each Patch TOP SCH (08:59)
--- NOTE | 2021-08-21 09:22 | PCM.PN ---
- General Info Date of Service: 08/21/21 Subjective Update: Lima pain is mainly low back,and left shoulder/arm where she had fallen, which she rates at 5 out of 10. She also complains of chronic mild headache. She has not passed stool for several days, like something to help. - Review of Systems General: Reports: Weakness HEENT: Reports: No Symptoms Pulmonary: Reports: No Symptoms Cardiovascular: Reports: No Symptoms Gastrointestinal: Reports: Constipation Genitourinary: Reports: No Symptoms Musculoskeletal: Reports: Shoulder Pain - Patient Data Vitals - Most Recent: Last Vital Signs Temp 97.7 F 08/20/21 22:03 Pulse 93 08/20/21 22:03 Resp 18 08/20/21 22:03 BP 135/95 H 08/21/21 08:53 Pulse Ox 97 08/20/21 22:03 Weight - Most Recent: 86.863 kg Lab Results Last 24 Hours: Laboratory Results - last 24 hr 08/20/21 08/21/21 08/21/21 Range/Units 17:09 06:10 06:10 PT 48.3 H* (9.0-11.1) sec INR 4.96 H* (1.00-1.24) Sodium 137 (135-145) mmol/L Potassium 3.8 (3.5-5.3) mmol/L Chloride 103 (100-110) mmol/L Carbon Dioxide 25 (21-32) mmol/L BUN 13 (7-18) mg/dL Creatinine 0.9 (0.55-1.02) mg/dL Est Cr Clr Drug Dosing 41.12 mL/min Estimated GFR (MDRD) 60 (>60) BUN/Creatinine Ratio 14.4 (9-20) Glucose 147 H (80-116) mg/dL POC Glucose 157 H (80-116) mg/dL Calcium 8.3 L (8.6-10.2) mg/dL Ian Results Last 24 Hours: Microbiology 08/19/21 21:35 Urine Culture - Preliminary Urine, Voided Gram Negative Rods Med Orders - Current: Current Medications Acetaminophen (Acetaminophen 500 Mg Tab) 1,000 mg PO Q8H [facility] Last Admin: 08/21/21 08:58 Dose: 1,000 mg Documented by: Diltiazem HCl (Diltiazem 240 Mg Cap.Er) 240 mg PO DAILY [facility] Last Admin: 08/21/21 08:54 Dose: 240 mg Documented by: Famotidine (Famotidine 20 Mg Tab) 20 mg PO DAILY [facility] Last Admin: 08/21/21 08:54 Dose: 20 mg Documented by: Levothyroxine Sodium (Levothyroxine 50 Mcg Tab) 50 mcg PO MOTUWETHFRSA@0600 [facility] Last Admin: 08/21/21 05:02 Dose: 50 mcg Documented by: Levothyroxine Sodium (Levothyroxine 50 Mcg Tab) 100 mcg PO MONROE@0600 [facility] Lidocaine (Lidocaine 4% 1 Each Patch) 1 each TOP DAILY [facility] Last Admin: 08/21/21 08:59 Dose: 1 each Documented by: Losartan Potassium (Losartan 50 Mg Tab) 50 mg PO DAILY [facility] Last Admin: 08/21/21 08:53 Dose: 50 mg Documented by: Metformin HCl (Metformin 1,000 Mg Tab) 1,000 mg PO BIDMEALS [facility] Last Admin: 08/21/21 08:53 Dose: 1,000 mg Documented by: Miscellaneous Information (Remove Lidocaine Patch) 1 ea TRDERM BEDTIME [facility] Last Admin: 08/20/21 21:30 Dose: 1 ea Documented by: Polyethylene Glycol (Polyethylene Glycol 3350 Powder 17 Gm Packet) 17 gm PO DAILY [facility] Pravastatin Sodium (Pravastatin 20 Mg Tab) 20 mg PO MOWEFR [facility] Last Admin: 08/21/21 08:54 Dose: 20 mg Documented by: Sodium Chloride (Sodium Chloride 0.9% 10 Ml Syringe) 10 ml FLUSH ASDIRECTED PRN PRN Reason: Keep Vein Open Tramadol HCl (Tramadol 50 Mg Tab) 50 mg PO Q6H PRN PRN Reason: Pain (moderate 4-6) Warfarin Sodium (Warfarin Sliding Scale) 1 each PO ASDIRECTED [facility] Discontinued Medications Acetaminophen (Acetaminophen 650 Mg Tab.Er) 650 mg PO Q4H PRN PRN Reason: Pain Acetaminophen (Acetaminophen 500 Mg Tab) 500 mg PO Q6H [facility] Last Admin: 08/20/21 05:06 Dose: 500 mg Documented by: Famotidine (Famotidine 20 Mg Tab) 20 mg PO BID [facility] Last Admin: 08/19/21 08:11 Dose: 20 mg Documented by: Sodium Chloride (Normal Saline) 1,000 mls @ 75 mls/hr IV ASDIRECTED [facility] Last Admin: 08/19/21 21:49 Dose: 75 mls/hr Documented by: Ceftriaxone Sodium 1 gm/ (Sodium Chloride) 50 mls @ 200 mls/hr IV ONETIME ONE Stop: 08/20/21 08:18 Last Admin: 08/20/21 08:18 Dose: 200 mls/hr Documented by: Ketorolac Tromethamine (Ketorolac 30 Mg/Ml Sdv) 30 mg IM ONETIME ONE Stop: 08/18/21 11:25 Last Admin: 08/18/21 11:31 Dose: 30 mg Documented by: Lidocaine (Lidocaine 4% 1 Each Patch) 1 each TOP DAILY [facility] Last Admin: 08/20/21 08:29 Dose: 1 each Documented by: (Diltiazem [Cardizem Cd] 240 Mg Cap.Cd) *Ptom 240 mg PO DAILY [facility] Last Admin: 08/19/21 08:11 Dose: 240 mg Documented by: Ondansetron HCl (Ondansetron 4 Mg Tab.Dis) 4 mg PO ONETIME ONE Stop: 08/18/21 11:25 Last Admin: 08/18/21 11:30 Dose: 4 mg Documented by: Tramadol HCl (Tramadol 50 Mg Tab) 100 mg PO ONETIME ONE Stop: 08/18/21 11:25 Last Admin: 08/18/21 11:30 Dose: 100 mg Documented by: Warfarin Sodium (Warfarin 5 Mg Tab *Ptom) 2.5 mg PO ONETIME ONE Stop: 08/18/21 16:31 Last Admin: 08/18/21 16:57 Dose: 2.5 mg Documented by: Warfarin Sodium (Warfarin 2.5 Mg Tab) 2.5 mg PO ONETIME ONE Stop: 08/19/21 16:01 Last Admin: 08/19/21 16:12 Dose: 2.5 mg Documented by: - Exam General: Alert, Oriented HEENT: Pupils Equal Neck: Supple, Thyromegaly Cardiovascular: Irregular Rhythm GI/Abdominal Exam: Normal Bowel Sounds, Soft, Distended. No: Guarding, Rebound, Tender Extremities: Other (Triceps left,hematoma/ecchymosis) Skin: Warm Neurological: No New Focal Deficit Psy/Mental Status: Alert - Patient Data Lab Results Last 24 hrs: Laboratory Results - last 24 hr 08/20/21 08/21/21 08/21/21 Range/Units 17:09 06:10 06:10 PT 48.3 H* (9.0-11.1) sec INR 4.96 H* (1.00-1.24) Sodium 137 (135-145) mmol/L Potassium 3.8 (3.5-5.3) mmol/L Chloride 103 (100-110) mmol/L Carbon Dioxide 25 (21-32) mmol/L BUN 13 (7-18) mg/dL Creatinine 0.9 (0.55-1.02) mg/dL Est Cr Clr Drug Dosing 41.12 mL/min Estimated GFR (MDRD) 60 (>60) BUN/Creatinine Ratio 14.4 (9-20) Glucose 147 H (80-116) mg/dL POC Glucose 157 H (80-116) mg/dL Calcium 8.3 L (8.6-10.2) mg/dL Result Diagrams: 08/19/21 06:20 08/21/21 06:10 Ian Results Last 24 hrs: Microbiology 08/19/21 21:35 Urine Culture - Preliminary Urine, Voided Gram Negative Rods Sepsis Event Note - Evaluation Sepsis Screening Result: Possible Sepsis Risk - Focused Exam Vital Signs: Vital Signs Temp Pulse Resp BP BP Pulse Ox 08/21/21 08:53 135/95 H 08/20/21 22:03 97.7 F 93 18 171/65 H 97 - Problem List & Annotations (1) Recurrent falls SNOMED Code(s): 209613528 Code(s): R29.6 - REPEATED FALLS Status: Acute Current Visit: Yes (2) HTN (hypertension) SNOMED Code(s): 03964303 Code(s): I10 - ESSENTIAL (PRIMARY) HYPERTENSION Status: Acute Current Vi sit: Yes Qualifiers: Hypertension type: primary hypertension Qualified Code(s): I10 - Essential (primary) hypertension (3) Constipation SNOMED Code(s): 45040204 Code(s): K59.00 - CONSTIPATION, UNSPECIFIED Status: Acute Current Visit: Yes Qualifiers: Constipation type: slow transit constipation Qualified Code(s): K59.01 - Slow transit constipation (4) Shoulder pain SNOMED Code(s): 77905439 Code(s): M25.519 - PAIN IN UNSPECIFIED SHOULDER Status: Acute Current Visit: Yes Qualifiers: Chronicity: acute (5) Low back pain SNOMED Code(s): 523207489 Code(s): M54.50 - LOW BACK PAIN, UNSPECIFIED Status: Acute Current Visit: Yes (6) A-fib SNOMED Code(s): 04797396 Code(s): I48.91 - UNSPECIFIED ATRIAL FIBRILLATION Status: Chronic Priority: High Current Visit: No Qualifiers: Atrial fibrillation type: paroxysmal Qualified Code(s): I48.0 - Paroxysmal atrial fibrillation - Problem List Review Problem List Initiated/Reviewed/Updated: Yes - My Orders Last 24 Hours: My Active Orders 08/21/21 09:30 polyethylene glycoL 3350 [MiraLAX] 17 gm PO DAILY - Plan Plan:: We'll continue pain control with Tylenol, Lidoderm patch. Use when necessary Tylenol. I'll give him MiraLAX for constipation. Continue physical rehabilitation
[2021-08-21] MEDS: Polyethylene Glycol 3350 Powder 17 GM Packet PO SCH (10:40)
[2021-08-21] MEDS: traMADol 50 MG Tab PO PRN (13:33)
[2021-08-22] MEDS: Acetaminophen 500 MG Tab PO SCH ×3 (00:48→16:18)
[2021-08-22] MEDS: Levothyroxine 50 MCG Tab PO SCH (06:39)
[2021-08-22] MEDS: metFORMIN 1,000 MG Tab PO SCH ×2 (08:59→17:35)
[2021-08-22] MEDS: Lidocaine 4% 1 each Patch TOP SCH (09:01)
[2021-08-22] MEDS: Losartan 50 MG Tab PO SCH (09:01)
[2021-08-22] MEDS: Famotidine 20 MG Tab PO SCH (09:02)
[2021-08-22] MEDS: Diltiazem 240 MG Cap.ER PO SCH (09:02)
[2021-08-22] MEDS: Polyethylene Glycol 3350 Powder 17 GM Packet PO SCH (09:02)
--- NOTE | 2021-08-22 09:52 | PCM.PN ---
- General Info Date of Service: 08/22/21 Subjective Update: Lima pain is better controlled. She also had a good bowel movement yesterday. Overall she feels better today. Functional Status: Reports: Pain Controlled - Review of Systems Pulmonary: Reports: No Symptoms Cardiovascular: Reports: No Symptoms Gastrointestinal: Reports: No Symptoms - Patient Data Vitals - Most Recent: Last Vital Signs Temp 97.8 F 08/22/21 01:00 Pulse 88 08/22/21 01:00 Resp 18 08/22/21 01:00 BP 125/89 08/22/21 09:01 Pulse Ox 98 08/22/21 01:00 Weight - Most Recent: 86.863 kg Lab Results Last 24 Hours: Laboratory Results - last 24 hr 08/21/21 08/22/21 08/22/21 Range/Units 17:04 06:20 06:36 PT 35.5 H* (9.0-11.1) sec INR 3.58 H (1.00-1.24) POC Glucose 122 H 127 H (80-116) mg/dL Ian Results Last 24 Hours: Microbiology 08/19/21 21:35 Urine Culture - Final Urine, Voided Escherichia Coli Med Orders - Current: Current Medications Acetaminophen (Acetaminophen 500 Mg Tab) 1,000 mg PO Q8H [facility] Last Admin: 08/22/21 09:01 Dose: 1,000 mg Documented by: Diltiazem HCl (Diltiazem 240 Mg Cap.Er) 240 mg PO DAILY [facility] Last Admin: 08/22/21 09:02 Dose: 240 mg Documented by: Famotidine (Famotidine 20 Mg Tab) 20 mg PO DAILY [facility] Last Admin: 08/22/21 09:02 Dose: 20 mg Documented by: Levothyroxine Sodium (Levothyroxine 50 Mcg Tab) 50 mcg PO MOTUWETHFRSA@0600 [facility] Last Admin: 08/22/21 06:39 Dose: 50 mcg Documented by: Levothyroxine Sodium (Levothyroxine 100 Mcg Tab) 100 mcg PO MONROE@0600 [facility] Lidocaine (Lidocaine 4% 1 Each Patch) 1 each TOP DAILY [facility] Last Admin: 08/22/21 09:01 Dose: 1 each Documented by: Losartan Potassium (Losartan 50 Mg Tab) 50 mg PO DAILY [facility] Last Admin: 08/22/21 09:01 Dose: 50 mg Documented by: Metformin HCl (Metformin 1,000 Mg Tab) 1,000 mg PO BIDMEALS [facility] Last Admin: 08/22/21 08:59 Dose: 1,000 mg Documented by: Miscellaneous Information (Remove Lidocaine Patch) 1 ea TRDERM BEDTIME [facility] Last Admin: 08/21/21 21:49 Dose: 1 ea Documented by: Polyethylene Glycol (Polyethylene Glycol 3350 Powder 17 Gm Packet) 17 gm PO DAILY [facility] Last Admin: 08/22/21 09:02 Dose: 17 gm Documented by: Pravastatin Sodium (Pravastatin 20 Mg Tab) 20 mg PO MOWEFR [facility] Last Admin: 08/21/21 08:54 Dose: 20 mg Documented by: Sodium Chloride (Sodium Chloride 0.9% 10 Ml Syringe) 10 ml FLUSH ASDIRECTED PRN PRN Reason: Keep Vein Open Tramadol HCl (Tramadol 50 Mg Tab) 50 mg PO Q6H PRN PRN Reason: Pain (moderate 4-6) Last Admin: 08/21/21 13:33 Dose: 50 mg Documented by: Warfarin Sodium (Warfarin Sliding Scale) 1 each PO ASDIRECTED [facility] Discontinued Medications Acetaminophen (Acetaminophen 650 Mg Tab.Er) 650 mg PO Q4H PRN PRN Reason: Pain Acetaminophen (Acetaminophen 500 Mg Tab) 500 mg PO Q6H [facility] Last Admin: 08/20/21 05:06 Dose: 500 mg Documented by: Famotidine (Famotidine 20 Mg Tab) 20 mg PO BID [facility] Last Admin: 08/19/21 08:11 Dose: 20 mg Documented by: Sodium Chloride (Normal Saline) 1,000 mls @ 75 mls/hr IV ASDIRECTED [facility] Last Admin: 08/19/21 21:49 Dose: 75 mls/hr Documented by: Ceftriaxone Sodium 1 gm/ (Sodium Chloride) 50 mls @ 200 mls/hr IV ONETIME ONE Stop: 08/20/21 08:18 Last Admin: 08/20/21 08:18 Dose: 200 mls/hr Documented by: Ketorolac Tromethamine (Ketorolac 30 Mg/Ml Sdv) 30 mg IM ONETIME ONE Stop: 08/18/21 11:25 Last Admin: 08/18/21 11:31 Dose: 30 mg Documented by: Lidocaine (Lidocaine 4% 1 Each Patch) 1 each TOP DAILY [facility] Last Admin: 08/20/21 08:29 Dose: 1 each Documented by: (Diltiazem [Cardizem Cd] 240 Mg Cap.Cd) *Ptom 240 mg PO DAILY [facility] Last Admin: 08/19/21 08:11 Dose: 240 mg Documented by: Ondansetron HCl (Ondansetron 4 Mg Tab.Dis) 4 mg PO ONETIME ONE Stop: 08/18/21 11:25 Last Admin: 08/18/21 11:30 Dose: 4 mg Documented by: Tramadol HCl (Tramadol 50 Mg Tab) 100 mg PO ONETIME ONE Stop: 08/18/21 11:25 Last Admin: 08/18/21 11:30 Dose: 100 mg Documented by: Warfarin Sodium (Warfarin 5 Mg Tab *Ptom) 2.5 mg PO ONETIME ONE Stop: 08/18/21 16:31 Last Admin: 08/18/21 16:57 Dose: 2.5 mg Documented by: Warfarin Sodium (Warfarin 2.5 Mg Tab) 2.5 mg PO ONETIME ONE Stop: 08/19/21 16:01 Last Admin: 08/19/21 16:12 Dose: 2.5 mg Documented by: - Exam General: Alert, Oriented HEENT: Pupils Equal Neck: Supple Lungs: Clear to Auscultation Cardiovascular: Regular Rate GI/Abdominal Exam: Normal Bowel Sounds - Patient Data Lab Results Last 24 hrs: Laboratory Results - last 24 hr 08/21/21 08/22/21 08/22/21 Range/Units 17:04 06:20 06:36 PT 35.5 H* (9.0-11.1) sec INR 3.58 H (1.00-1.24) POC Glucose 122 H 127 H (80-116) mg/dL Result Diagrams: 08/19/21 06:20 08/21/21 06:10 Ian Results Last 24 hrs: Microbiology 08/19/21 21:35 Urine Culture - Final Urine, Voided Escherichia Coli Sepsis Event Note - Evaluation Sepsis Screening Result: Possible Sepsis Risk - Focused Exam Vital Signs: Vital Signs Temp Pulse Resp BP BP Pulse Ox 08/22/21 09:01 125/89 08/22/21 01:00 97.8 F 88 18 145/75 H 98 - Problem List & Annotations (1) Recurrent falls SNOMED Code(s): 423334560 Code(s): R29.6 - REPEATED FALLS Status: Acute Current Visit: Yes (2) HTN (hypertension) SNOMED Code(s): 07048618 Code(s): I10 - ESSENTIAL (PRIMARY) HYPERTENSION Status: Acute Current Visit: Yes Qualifiers: Hypertension type: primary hypertension Qualified Code(s): I10 - Essential (primary) hypertension (3) Constipation SNOMED Code(s): 95452272 Code(s): K59.00 - CONSTIPATION, UNSPECIFIED Status: Acute Current Visit: Yes Qualifiers: Constipation type: slow transit constipation Qualified Code(s): K59.01 - Slow transit constipation (4) Shoulder pain SNOMED Code(s): 57157133 Code(s): M25.519 - PAIN IN UNSPECIFIED SHOULDER Status: Acute Current Visit: Yes Qualifiers: Chronicity: acute (5) Low back pain SNOMED Code(s): 250170604 Code(s): M54.50 - LOW BACK PAIN, UNSPECIFIED Status: Acute Current Visit: Yes (6) A-fib SNOMED Code(s): 35486984 Code(s): I48.91 - UNSPECIFIED ATRIAL FIBRILLATION Status: Chronic Priority: High Current Visit: No Qualifiers: Atrial fibrillation type: paroxysmal Qualified Code(s): I48.0 - Paroxysmal atrial fibrillation - Problem List Review Problem List Initiated/Reviewed/Updated: Yes - My Orders Last 24 Hours: My Active Orders 08/21/21 09:30 polyethylene glycoL 3350 [MiraLAX] 17 gm PO DAILY - Plan Plan:: We'll continue pain control with Tylenol, Lidoderm patch. Use when necessary Tylenol. Continue physical rehabilitation
[2021-08-23] MEDS: Acetaminophen 500 MG Tab PO SCH ×3 (00:56→18:01)
[2021-08-23] MEDS: traMADol 50 MG Tab PO PRN ×2 (01:55→22:35)
[2021-08-23] MEDS ORDERED: Levothyroxine 100 MCG Tab PO SCH (06:00)
[2021-08-23] MEDS: metFORMIN 1,000 MG Tab PO SCH ×2 (08:16→18:00)
[2021-08-23] MEDS: Lidocaine 4% 1 each Patch TOP SCH (08:17)
[2021-08-23] MEDS: Losartan 50 MG Tab PO SCH (08:18)
[2021-08-23] MEDS: Diltiazem 240 MG Cap.ER PO SCH (08:18)
[2021-08-23] MEDS: Polyethylene Glycol 3350 Powder 17 GM Packet PO SCH (08:18)
[2021-08-23] MEDS: Famotidine 20 MG Tab PO SCH (08:19)
[2021-08-23] MEDS ORDERED: Magnesium Hydroxide 400 MG/5 ML Susp 30 ML Cup PO ONE (08:54)
--- NOTE | 2021-08-23 08:59 | PCM.PN ---
- General Info Date of Service: 08/23/21 Subjective Update: Lima pain is worse today. She could not sleep well. She also had NO good bowel movement. Functional Status: Reports: Tolerating Diet, Ambulating. Denies: Pain Controlled - Review of Systems General: Reports: Weakness HEENT: Reports: No Symptoms Pulmonary: Reports: No Symptoms Cardiovascular: Reports: No Symptoms Gastrointestinal: Reports: No Symptoms Genitourinary: Reports: No Symptoms - Patient Data Vitals - Most Recent: Last Vital Signs Temp 98 F 08/23/21 08:00 Pulse 100 08/23/21 08:00 Resp 16 08/23/21 08:00 BP 147/67 H 08/23/21 08:18 Pulse Ox 98 08/23/21 08:00 Weight - Most Recent: 86.863 kg Lab Results Last 24 Hours: Laboratory Results - last 24 hr 08/22/21 08/23/21 08/23/21 Range/Units 16:15 06:47 06:47 WBC 8.9 (3.0-10.3) x10-3/uL RBC 3.62 (3.60-5.20) x10(6)uL Hgb 11.0 L (11.4-15.5) g/dL Hct 32.5 L (34.2-48.2) % MCV 89.9 (76.7-100.5) fL MCH 30.4 (23.9-33.9) pg MCHC 33.8 (31.9-34.8) g/dL RDW 16.0 (12.3-16.5) % Plt Count 328 (151-488) x10(3)uL MPV 7.6 (7.1-12.4) fL Neut % (Auto) 65.3 (30.8-76.2) % Lymph % (Auto) 23.9 (18.4-52.1) % [place] % (Auto) 8.3 (4.4-15.7) % Eos % (Auto) 1.8 (0.6-8.1) % Baso % (Auto) 0.7 (0.2-1.5) % Neut # (Auto) 5.8 (1.5-6.3) x10-3/uL Lymph # (Auto) 2.1 (1.0-4.4) x10-3/uL [place] # (Auto) 0.7 (0.3-1.0) x10-3/uL Eos # (Auto) 0.2 (0.0-0.8) x10-3/uL Baso # (Auto) 0.1 (0.0-0.1) x10-3/uL PT 30.4 H (9.0-11.1) sec INR 3.02 H (1.00-1.24) Sodium (135-145) mmol/L Potassium (3.5-5.3) mmol/L Chloride (100-110) mmol/L Carbon Dioxide (21-32) mmol/L BUN (7-18) mg/dL Creatinine (0.55-1.02) mg/dL Est Cr Clr Drug Dosing mL/min Estimated GFR (MDRD) (>60) BUN/Creatinine Ratio (9-20) Glucose (80-116) mg/dL POC Glucose 119 H (80-116) mg/dL Calcium (8.6-10.2) mg/dL 08/23/21 Range/Units 06:47 WBC (3.0-10.3) x10-3/uL RBC (3.60-5.20) x10(6)uL Hgb (11.4-15.5) g/dL Hct (34.2-48.2) % MCV (76.7-100.5) fL MCH (23.9-33.9) pg MCHC (31.9-34.8) g/dL RDW (12.3-16.5) % Plt Count (151-488) x10(3)uL MPV (7.1-12.4) fL Neut % (Auto) (30.8-76.2) % Lymph % (Auto) (18.4-52.1) % [place] % (Auto) (4.4-15.7) % Eos % (Auto) (0.6-8.1) % Baso % (Auto) (0.2-1.5) % Neut # (Auto) (1.5-6.3) x10-3/uL Lymph # (Auto) (1.0-4.4) x10-3/uL [place] # (Auto) (0.3-1.0) x10-3/uL Eos # (Auto) (0.0-0.8) x10-3/uL Baso # (Auto) (0.0-0.1) x10-3/uL PT (9.0-11.1) sec INR (1.00-1.24) Sodium 137 (135-145) mmol/L Potassium 3.9 (3.5-5.3) mmol/L Chloride 103 (100-110) mmol/L Carbon Dioxide 26 (21-32) mmol/L BUN 14 (7-18) mg/dL Creatinine 1.1 H (0.55-1.02) mg/dL Est Cr Clr Drug Dosing 33.65 mL/min Estimated GFR (MDRD) 47 L (>60) BUN/Creatinine Ratio 12.7 (9-20) Glucose 149 H (80-116) mg/dL POC Glucose (80-116) mg/dL Calcium 8.9 (8.6-10.2) mg/dL Med Orders - Current: Current Medications Acetaminophen (Acetaminophen 500 Mg Tab) 1,000 mg PO Q8H [facility] Last Admin: 08/23/21 08:17 Dose: 1,000 mg Documented by: Diltiazem HCl (Diltiazem 240 Mg Cap.Er) 240 mg PO DAILY [facility] Last Admin: 08/23/21 08:18 Dose: 240 mg Documented by: Famotidine (Famotidine 20 Mg Tab) 20 mg PO DAILY [facility] Last Admin: 08/23/21 08:19 Dose: 20 mg Documented by: Levothyroxine Sodium (Levothyroxine 50 Mcg Tab) 50 mcg PO MOTUWETHFRSA@0600 [facility] Last Admin: 08/22/21 06:39 Dose: 50 mcg Documented by: Levothyroxine Sodium (Levothyroxine 100 Mcg Tab) 100 mcg PO MONROE@0600 [facility] Last Admin: 08/23/21 06:24 Dose: 100 mcg Documented by: Lidocaine (Lidocaine 4% 1 Each Patch) 1 each TOP DAILY [facility] Last Admin: 08/23/21 08:17 Dose: 1 each Documented by: Losartan Potassium (Losartan 50 Mg Tab) 50 mg PO DAILY [facility] Last Admin: 08/23/21 08:18 Dose: 50 mg Documented by: Magnesium Hydroxide (Magnesium Hydroxide 400 Mg/5 Ml Susp 30 Ml Cup) 30 ml PO ONETIME ONE Stop: 08/23/21 08:55 Metformin HCl (Metformin 1,000 Mg Tab) 1,000 mg PO BIDMEALS [facility] Last Admin: 08/23/21 08:16 Dose: 1,000 mg Documented by: Miscellaneous Information (Remove Lidocaine Patch) 1 ea TRDERM BEDTIME [facility] Last Admin: 08/22/21 20:57 Dose: 1 ea Documented by: Polyethylene Glycol (Polyethylene Glycol 3350 Powder 17 Gm Packet) 17 gm PO DA LISA [facility] Last Admin: 08/23/21 08:18 Dose: 17 gm Documented by: Pravastatin Sodium (Pravastatin 20 Mg Tab) 20 mg PO MOWEFR [facility] Last Admin: 08/21/21 08:54 Dose: 20 mg Documented by: Sodium Chloride (Sodium Chloride 0.9% 10 Ml Syringe) 10 ml FLUSH ASDIRECTED PRN PRN Reason: Keep Vein Open Tramadol HCl (Tramadol 50 Mg Tab) 50 mg PO Q6H PRN PRN Reason: Pain (moderate 4-6) Last Admin: 08/23/21 01:55 Dose: 50 mg Documented by: Warfarin Sodium (Warfarin Sliding Scale) 1 each PO ASDIRECTED [facility] Warfarin Sodium (Warfarin 2.5 Mg Tab) 2.5 mg PO ONETIME ONE Stop: 08/23/21 16:01 Discontinued Medications Acetaminophen (Acetaminophen 650 Mg Tab.Er) 650 mg PO Q4H PRN PRN Reason: Pain Acetaminophen (Acetaminophen 500 Mg Tab) 500 mg PO Q6H [facility] Last Admin: 08/20/21 05:06 Dose: 500 mg Documented by: Famotidine (Famotidine 20 Mg Tab) 20 mg PO BID [facility] Last Admin: 08/19/21 08:11 Dose: 20 mg Documented by: Sodium Chloride (Normal Saline) 1,000 mls @ 75 mls/hr IV ASDIRECTED [facility] Last Admin: 08/19/21 21:49 Dose: 75 mls/hr Documented by: Ceftriaxone Sodium 1 gm/ (Sodium Chloride) 50 mls @ 200 mls/hr IV ONETIME ONE Stop: 08/20/21 08:18 Last Admin: 08/20/21 08:18 Dose: 200 mls/hr Documented by: Ketorolac Tromethamine (Ketorolac 30 Mg/Ml Sdv) 30 mg IM ONETIME ONE Stop: 08/18/21 11:25 Last Admin: 08/18/21 11:31 Dose: 30 mg Documented by: Lidocaine (Lidocaine 4% 1 Each Patch) 1 each TOP DAILY [facility] Last Admin: 08/20/21 08:29 Dose: 1 each Documented by: (Diltiazem [Cardizem Cd] 240 Mg Cap.Cd) *Ptom 240 mg PO DAILY [facility] Last Admin: 08/19/21 08:11 Dose: 240 mg Documented by: Ondansetron HCl (Ondansetron 4 Mg Tab.Dis) 4 mg PO ONETIME ONE Stop: 08/18/21 11:25 Last Admin: 08/18/21 11:30 Dose: 4 mg Documented by: Tramadol HCl (Tramadol 50 Mg Tab) 100 mg PO ONETIME ONE Stop: 08/18/21 11:25 Last Admin: 08/18/21 11:30 Dose: 100 mg Documented by: Warfarin Sodium (Warfarin 5 Mg Tab *Ptom) 2.5 mg PO ONETIME ONE Stop: 08/18/21 16:31 Last Admin: 08/18/21 16:57 Dose: 2.5 mg Documented by: Warfarin Sodium (Warfarin 2.5 Mg Tab) 2.5 mg PO ONETIME ONE Stop: 08/19/21 16:01 Last Admin: 08/19/21 16:12 Dose: 2.5 mg Documented by: - Exam General: Alert, Oriented HEENT: Pupils Equal Neck: Supple Lungs: Clear to Auscultation Cardiovascular: Regular Rate, Regular Rhythm GI/Abdominal Exam: Normal Bowel Sounds, Soft Extremities: Normal Inspection - Patient Data Lab Results Last 24 hrs: Laboratory Results - last 24 hr 08/22/21 08/23/21 08/23/21 Range/Units 16:15 06:47 06:47 WBC 8.9 (3.0-10.3) x10-3/uL RBC 3.62 (3.60-5.20) x10(6)uL Hgb 11.0 L (11.4-15.5) g/dL Hct 32.5 L (34.2-48.2) % MCV 89.9 (76.7-100.5) fL MCH 30.4 (23.9-33.9) pg MCHC 33.8 (31.9-34.8) g/dL RDW 16.0 (12.3-16.5) % Plt Count 328 (151-488) x10(3)uL MPV 7.6 (7.1-12.4) fL Neut % (Auto) 65.3 (30.8-76.2) % Lymph % (Auto) 23.9 (18.4-52.1) % [place] % (Auto) 8.3 (4.4-15.7) % Eos % (Auto) 1.8 (0.6-8.1) % Baso % (Auto) 0.7 (0.2-1.5) % Neut # (Auto) 5.8 (1.5-6.3) x10-3/uL Lymph # (Auto) 2.1 (1.0-4.4) x10-3/uL [place] # (Auto) 0.7 (0.3-1.0) x10-3/uL Eos # (Auto) 0.2 (0.0-0.8) x10-3/uL Baso # (Auto) 0.1 (0.0-0.1) x10-3/uL PT 30.4 H (9.0-11.1) sec INR 3.02 H (1.00-1.24) Sodium (135-145) mmol/L Potassium (3.5-5.3) mmol/L Chloride (100-110) mmol/L Carbon Dioxide (21-32) mmol/L BUN (7-18) mg/dL Creatinine (0.55-1.02) mg/dL Est Cr Clr Drug Dosing mL/min Estimated GFR (MDRD) (>60) BUN/Creatinine Ratio (9-20) Glucose (80-116) mg/dL POC Glucose 119 H (80-116) mg/dL Calcium (8.6-10.2) mg/dL 08/23/21 Range/Units 06:47 WBC (3.0-10.3) x10-3/uL RBC (3.60-5.20) x10(6)uL Hgb (11.4-15.5) g/dL Hct (34.2-48.2) % MCV (76.7-100.5) fL MCH (23.9-33.9) pg MCHC (31.9-34.8) g/dL RDW (12.3-16.5) % Plt Count (151-488) x10(3)uL MPV (7.1-12.4) fL Neut % (Auto) (30.8-76.2) % Lymph % (Auto) (18.4-52.1) % [place] % (Auto) (4.4-15.7) % Eos % (Auto) (0.6-8.1) % Baso % (Auto) (0.2-1.5) % Neut # (Auto) (1.5-6.3) x10-3/uL Lymph # (Auto) (1.0-4.4) x10-3/uL [place] # (Auto) (0.3-1.0) x10-3/uL Eos # (Auto) (0.0-0.8) x10-3/uL Baso # (Auto) (0.0-0.1) x10-3/uL PT (9.0-11.1) sec INR (1.00-1.24) Sodium 137 (135-145) mmol/L Potassium 3.9 (3.5-5.3) mmol/L Chloride 103 (100-110) mmol/L Carbon Dioxide 26 (21-32) mmol/L BUN 14 (7-18) mg/dL Creatinine 1.1 H (0.55-1.02) mg/dL Est Cr Clr Drug Dosing 33.65 mL/min Estimated GFR (MDRD) 47 L (>60) BUN/Creatinine Ratio 12.7 (9-20) Glucose 149 H (80-116) mg/dL POC Glucose (80-116) mg/dL Calcium 8.9 (8.6-10.2) mg/dL Result Diagrams: 08/23/21 06:47 08/23/21 06:47 Sepsis Event Note - Evaluation Sepsis Screening Result: Possible Sepsis Risk - Focused Exam Vital Signs: Vital Signs Temp Pulse Resp BP BP Pulse Ox 08/23/21 08:18 147/67 H 08/23/21 08:00 98 F 100 16 147/67 H 98 08/23/21 00:46 98.1 F 76 18 137/74 97 - Problem List & Annotations (1) Low back pain SNOMED Code(s): 063783993 Code(s): M54.50 - LOW BACK PAIN, UNSPECIFIED Status: Acute Current Visit: Yes (2) Recurrent falls SNOMED Code(s): 897795332 Code(s): R29.6 - REPEATED FALLS Status: Acute Current Visit: Yes (3) HTN (hypertension) SNOMED Code(s): 35322533 Code(s): I10 - ESSENTIAL (PRIMARY) HYPERTENSION Status: Acute Current Visit: Yes Qualifiers: Hypertension type: primary hypertension Qualified Code(s): I10 - Essential (primary) hypertension (4) Constipation SNOMED Code(s): 05027212 Code(s): K59.00 - CONSTIPATION, UNSPECIFIED Status: Acute Current Visit: Yes Qualifiers: Constipation type: slow transit constipation Qualified Code(s): K59.01 - Slow transit constipation (5) Shoulder pain SNOMED Code(s): 50849906 Code(s): M25.519 - PAIN IN UNSPECIFIED SHOULDER Status: Acute Current Visit: Yes Qualifiers: Chronicity: acute (6) A-fib SNOMED Code(s): 86657093 Code(s): I48.91 - UNSPECIFIED ATRIAL FIBRILLATION Status: Chronic Priority: High Current Visit: No Qualifiers: Atrial fibrillation type: paroxysmal Qualified Code(s): I48.0 - Paroxysmal atrial fibrillation (7) Bacteriuria SNOMED Code(s): 97822353 Code(s): R82.71 - BACTERIURIA Status: Acute Current Visit: Yes - Problem List Review Problem List Initiated/Reviewed/Updated: Yes - My Orders Last 24 Hours: My Active Orders 08/23/21 08:54 Magnesium Hydroxide [Milk of Magnesia] 30 ml PO ONETIME ONE - Plan Plan:: Control pain with Tramadol. I'll give her 1 dose of milk of magnesia to help constipation. She should be able to switch back to swing bed tomorrow with physical therapy.
[2021-08-23] MEDS: Nitrofurantoin Monohydrate/Macrocrystalline 100 MG Cap PO SCH ×2 (09:18→22:40)
[2021-08-23] MEDS ORDERED: Warfarin 2.5 MG Tab PO ONE (16:00)
[2021-08-24] MEDS: Acetaminophen 500 MG Tab PO SCH ×2 (00:48→08:27)
[2021-08-24] MEDS: Levothyroxine 50 MCG Tab PO SCH (06:33)
[2021-08-24] MEDS: Polyethylene Glycol 3350 Powder 17 GM Packet PO SCH (08:24)
[2021-08-24] MEDS: Famotidine 20 MG Tab PO SCH (08:25)
[2021-08-24] MEDS: metFORMIN 1,000 MG Tab PO SCH (08:25)
[2021-08-24] MEDS: Pravastatin 20 MG Tab PO SCH (08:25)
[2021-08-24] MEDS: Diltiazem 240 MG Cap.ER PO SCH (08:26)
[2021-08-24] MEDS: Losartan 50 MG Tab PO SCH (08:26)
[2021-08-24] MEDS: Lidocaine 4% 1 each Patch TOP SCH (08:28)
[2021-08-24 08:29] VITALS: BP 174/78
[2021-08-24] MEDS: Nitrofurantoin Monohydrate/Macrocrystalline 100 MG Cap PO SCH (09:19)
[2021-08-24 16:05] VITALS: PULSE 111
--- NOTE | 2021-08-24 23:02 | DISCH ---
DISCHARGE DATE: 08/24/2021 REASON FOR ADMISSION: 1. Weakness. 2. Urinary tract infection. 3. Recurrent falls. 4. Back pain. 5. Constipation. 6. Atrial fibrillation. BRIEF HISTORY AND HOSPITAL COURSE: This is a pleasant 85-year-old female who had recurrent falls at [facility] where she lives. She was seen in the ER at [facility], where she had negative imaging studies. She presented here after another fall and was admitted for rehab and was found to have a urinary tract infection. During the hospital stay she complained of constipation that was relieved by milk of magnesia. Pain was controlled with Tylenol and tramadol as needed. She will be discharged to swing bed because of debility and weakness for strengthening and discharge disposition. I spent more than 35 minutes in the discharge of the patient. /[id number] YULISSA/GOLDEN
== END 2021-08-24 09:20 | disposition swing bed (61) | DRG 948 ==
LOC: FB.ED 11:04 → FB.MS 13:49 → OBSVTOIN 08-19 09:35
PROVIDERS: ADMIT Family Medicine; ATTEND Family Medicine
DX: R53.1 Weakness (principal); N39.0 Urinary tract infection, site not specified; S23.3XXA Sprain of ligaments of thoracic spine, initial encounter; M54.50 Low back pain, unspecified; R29.6 Repeated falls; I48.0 Paroxysmal atrial fibrillation; I10 Essential (primary) hypertension; E11.9 Type 2 diabetes mellitus without complications; E03.9 Hypothyroidism, unspecified; J45.909 Unspecified asthma, uncomplicated; Z96.651 Presence of right artificial knee joint; E66.9 Obesity, unspecified; Z66 Do not resuscitate; E86.0 Dehydration; K21.9 Gastro-esophageal reflux disease without esophagitis; Z20.822 Contact with and (suspected) exposure to COVID-19; S16.1XXA Strain of muscle, fascia and tendon at neck level, initial encounter; B96.20 Unspecified Escherichia coli [E. coli] as the cause of diseases classified elsewhere; K59.01 Slow transit constipation; Z91.041 Radiographic dye allergy status; Z88.2 Allergy status to sulfonamides; Z79.01 Long term (current) use of anticoagulants; Z79.84 Long term (current) use of oral hypoglycemic drugs; Z79.899 Other long term (current) drug therapy; Z86.73 Personal history of transient ischemic attack (TIA), and cerebral infarction without residual deficits; Z90.49 Acquired absence of other specified parts of digestive tract; Z86.718 Personal history of other venous thrombosis and embolism; Z68.32 Body mass index [BMI] 32.0-32.9, adult; X58.XXXA Exposure to other specified factors, initial encounter
CPT/HCPCS: 36415 ×2; 72072; 72100; 80048; 80053; 82947; 85025 ×2; 85610 ×2; 93005; 96372; 97165; 99285; A9270 ×14; G0378 ×3; J1885; J7030 ×3; U0002; 81001; 87086; 87088; 87186; 97110-GO; 97116-GP; 97161-GP; 97530-GO; 97530-GP; 97535-GO; J0696

== ENCOUNTER 2021-08-24 09:20 | Inpatient (IN) | payer MEDICARE, BC ==
[2021-08-24] MEDS ORDERED: Warfarin Sliding Scale PO SCH (09:45)
[2021-08-24] MEDS ORDERED: Acetaminophen 650 MG Tab.ER PO PRN (09:50)
--- NOTE | 2021-08-24 09:54 | PCM.HP.2 ---
H&P History of Present Illness - General Date of Service: 08/24/21 Admit Problem/Dx: Admission Diagnosis/Problem Admission Diagnosis/Problem Weakness Source of Information: Patient History Limitations: Reports: No Limitations - History of Present Illness Initial Comments - Free Text/Narative: This is an 85-year-old female admitted through acute care, for rehabilitation to [facility]. She presented to the medical floor a few days ago with the recurrent falls, back pain, constipation and a urinary tract infection. She is deemed too weak to return to community based leaving, and she is admitted to swing bed for physical and occupational therapy. She had fallen at least twice at home but had negative imaging studies in the emergency room at [facility]. While at the hospital admission, she had constipation is relieved by MiraLAX, and pain in the back was controlled by Tylenol, when necessary tramadol. She has a history of atrial fibrillation, and hypertension currently stable. Low back Pain Score (Numeric/FACES): 11 LD. LOWER BACK\NECK PAIN Pain Score (Numeric/FACES): 5 - Related Data Allergies/Adverse Reactions: Allergies Allergy/AdvReac Type Severity Reaction Status Date / Time Iodinated Contrast Media Allergy Itching Verified 02/26/21 14:00 Sulfa (Sulfonamide Allergy Rash Verified 10/15/16 12:03 Antibiotics) Home Medications: Home Meds Levothyroxine [Synthroid] 50 mcg PO MOTUWETHFRSA@0600 09/09/15 [History] metFORMIN [Glucophage] 1,000 mg PO BIDMEALS 09/09/15 [History] Diltiazem [Cardizem CD] 240 mg PO DAILY #30 cap.cd 10/02/15 [Rx] Acetaminophen [Tylenol Arthritis] 650 mg PO Q4H PRN 02/20/21 [History] Cholecalciferol (Vitamin D3) [Vitamin D3] 125 mcg PO BEDTIME 02/20/21 [History] Cyanocobalamin (Vitamin B-12) [B-12] 1,000 mcg PO BEDTIME 02/20/21 [History] Denosumab [Prolia] 60 mg SUBCUT Q180D 02/20/21 [History] Famotidine 20 mg PO DAILY 02/20/21 [History] Levothyroxine [Synthroid] 100 mcg PO MONROE@0600 02/20/21 [History] Pravastatin Sodium 20 mg PO MOWEFR@0900 02/20/21 [History] Triamcinolone Acetonide [Triamcinolone Acetonide 0.1% Crm] 1 applic TOP BID 02/20/21 [History] Warfarin [Coumadin] 2.5 mg PO SUMOWEFR 08/18/21 [History] Warfarin [Coumadin] 5 mg PO TUTHSA 08/18/21 [History] traMADol [Ultram] 100 mg PO Q8H PRN #30 tab 08/18/21 [Rx] Losartan [Cozaar] 50 mg PO DAILY 08/19/21 [History] Magnesium Oxide 400 mg PO BEDTIME 08/19/21 [History] Past Medical History HEENT History: Reports: Cataract Cardiovascular History: Reports: Afib, Hypertension, Other (See Below) Other Cardiovascular History: mitral stenosis, aortc unsuff. 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 Neurological History: Reports: Migraines, TIA, Other (See Below) Other Neuro History: once had a seizure years ago Psychiatric History: Reports: Depression Endocrine/Metabolic History: Reports: Diabetes, Type II, Hypomagnesemia, Hypothyroidism, Obesity/BMI 30+ Hematologic History: Reports: Anemia, Blood Transfusion(s), Iron Deficiency Immunologic History: Reports: None Oncologic (Cancer) History: Reports: None Dermatologic History: Reports: None - Infectious Disease History Infectious Disease History: Reports: Shingles - Past Surgical History Head Surgeries/Procedures: Reports: None Cardiovascular Surgical History: Reports: None Respiratory Surgical History: Reports: None GI Surgical History: Reports: Appendectomy, Cholecystectomy, Colonoscopy Female Surgical History: Reports: None Neurological Surgical History: Reports: None Musculoskeletal Surgical History: Reports: Arthroscopic Knee, Knee Replacement Other Musculoskeletal Surgeries/Procedures:: R knee scope & rplmt, Social & Family History - Family History Family Medical History: No Pertinent Family History HEENT: Reports: Cataract Cardiac: Reports: Blood Clots/VTE/DVT OBGYN: Reports: Neurological: Reports: CVA Psychiatric: Reports: Depression Endocrine/Metabolic: Reports: Diabetes, type II, Hypothyroidism Oncologic: Reports: Breast, Lung, Skin - Caffeine Use Caffeine Use: Reports: None H&P Review of Systems - Review of Systems: Review Of Systems: Comprehensive ROS is negative, except as noted in HPI. Exam - Exam Exam: See Below - Exam General: Alert, Oriented, 4 HEENT: PERRLA, Hearing Intact, Mucosa Moist & [place], Nares Patent, Normal Nasal Septum, Posterior Pharynx Clear, Conjunctiva Clear, EOMI, EACs Clear, TMs Clear Neck: Supple, Trachea Midline, 2 Lungs: Clear to Auscultation, Normal Respiratory Effort Cardiovascular: Regular Rate, Regular Rhythm GI/Abdominal Exam: Normal Bowel Sounds, Soft, Non-Tender, No Organomegaly, No Distention, No Abnormal Bruit, No Mass, Pelvis Stable (Female) Exam: Deferred Rectal (Female) Exam: Deferred Back Exam: Paraspinal Tenderness Extremities: Normal Inspection, Normal Range of Motion, Non-Tender, No Pedal Edema, Normal Capillary Refill Skin: Warm, Dry, Intact Neurological: Cranial Nerves Intact, Reflexes Equal Bilateral Neuro Extensive - Mental Status: Alert, Oriented x3, Normal Mood/Affect, Normal Cognition Neuro Extensive - Motor, Sensory, Reflexes: CN II-XII Intact, Normal Gait, Normal Reflexes Psychiatric: Alert, Normal Affect, Normal Mood - Problem List (1) UTI (urinary tract infection) SNOMED Code(s): 57301101 ICD Code: N39.0 - URINARY TRACT INFECTION, SITE NOT SPECIFIED Status: Acute Current Visit: Yes Qualifiers: Urinary tract infection type: acute cystitis (2) Back pain SNOMED Code(s): 923441981 ICD Code: M54.9 - DORSALGIA, UNSPECIFIED Status: Acute Current Visit: No Qualifiers: Back pain location: low back pain (3) Low back pain SNOMED Code(s): 117249636 ICD Code: M54.50 - LOW BACK PAIN, UNSPECIFIED Status: Acute Current Visit: No Qualifiers: Chronicity: acute (4) A-fib SNOMED Code(s): 34715475 ICD Code: I48.91 - UNSPECIFIED ATRIAL FIBRILLATION Status: Chronic Priority: High Current Visit: No Qualifiers: Atrial fibrillation type: paroxysmal Qualified Code(s): I48.0 - Paroxysmal atrial fibrillation (5) Diabetes type 2, controlled SNOMED Code(s): 41624957, 580414390 ICD Code: E11.9 - TYPE 2 DIABETES MELLITUS WITHOUT COMPLICATIONS Status: Chronic Current Visit: No Qualifiers: Diabetes mellitus termite helper insulin use: without penitentiary use (6) Systolic essential hypertension SNOMED Code(s): 503695630 ICD Code: I10 - ESSENTIAL (PRIMARY) HYPERTENSION Status: Chronic Current Visit: No (7) Debility SNOMED Code(s): 39980231 ICD Code: R53.81 - OTHER MALAISE Status: Acute Current Visit: Yes (8) Ambulatory dysfunction SNOMED Code(s): 031192624 ICD Code: R26.2 - DIFFICULTY IN WALKING, NOT ELSEWHERE CLASSIFIED Status: Acute Current Visit: Yes (9) Recurrent falls SNOMED Code(s): 472274415 ICD Code: R29.6 - REPEATED FALLS Status: Acute Current Visit: Yes Problem List Initiated/Reviewed/Updated: Yes Orders Last 24hrs: Active Orders 24 hr Category Date Time Status Patient Status [ADT] Routine ADT 08/24/21 09:48 Ordered Height and Weight [RC] WEEKLY Care 08/24/21 09:48 Ordered Oxygen Therapy [RC] PRN Care 08/24/21 09:48 Ordered Up With Assistance [RC] ASDIRECTED Care 08/24/21 09:48 Ordered VTE/DVT Education [RC] Per Unit Routine Care 08/24/21 09:48 Ordered Vital Signs [RC] PER UNIT ROUTINE Care 08/24/21 09:48 Ordered OT Evaluation and Treatment [CONS] Routine Cons 08/24/21 09:48 Ordered PT Evaluation and Treatment [CONS] Routine Cons 08/24/21 09:48 Ordered Regular Diet [DIET] Diet 08/24/21 Breakfast Ordered Acetaminophen [Tylenol Arthritis Pain] Med 08/24/21 09:50 Ordered 650 mg PO Q4H PRN Cholecalciferol (Vitamin D3) [Vitamin D3] Med 08/24/21 21:00 Ordered 125 mcg PO BEDTIME Cyanocobalamin (Vitamin B12) [Vitamin B12] Med 08/24/21 21:00 Ordered 1,000 mcg PO BEDTIME Denosumab [Prolia] Med 08/24/21 10:00 Ordered 60 mg SUBCUT Q180D Diltiazem [Cardizem CD] Med 08/25/21 09:00 Ordered 240 mg PO DAILY Famotidine [Pepcid] Med 08/25/21 09:00 Ordered 20 mg PO DAILY Levothyroxine [Synthroid] Med 08/30/21 06:00 Ordered 100 mcg PO MONROE@0600 Levothyroxine [Synthroid] Med 08/25/21 06:00 Ordered 50 mcg PO MOTUWETHFRSA@0600 Losartan [Cozaar] Med 08/25/21 09:00 Ordered 50 mg PO DAILY Magnesium Oxide [Magnesium Oxide] Med 08/24/21 21:00 Ordered 400 mg PO BEDTIME Nitrofurantoin [place]/Macrocryst [Macrobid] Med 08/24/21 10:00 Ordered 100 mg PO BID Pravastatin [Pravachol] Med 08/26/21 09:00 Ordered 20 mg PO MOWEFR@0900 Triamcinolone Acetonide [Triamcinolone Acetonide 0.1% Med 08/24/21 21:00 Ordered Crm] 1 applic TOP BID Warfarin Sliding Scale [Coumadin Sliding Scale] Med 08/24/21 09:45 Pending 1 each PO ASDIRECTED metFORMIN [Glucophage] Med 08/24/21 18:00 Ordered 1,000 mg PO BIDMEALS traMADol [Ultram] Med 08/24/21 09:50 Ordered 100 mg PO Q8H PRN Resuscitation Status Routine Resus Stat 08/24/21 09:48 Ordered Medication Orders Acetaminophen (Acetaminophen 650 Mg Tab.Er) 650 mg PO Q4H PRN PRN Reason: Pain Nitrofurantoin Macrocrystals (Nitrofurantoin Monohydrate/Macrocrystalline 100 Mg Cap) 100 mg PO BID [facility] Non-Formulary Medication (Cholecalciferol (Vitamin D3) [Vitamin D3]) 125 mcg PO BEDTIME NOLAN Warfarin Sodium (Warfarin Sliding Scale) 1 each PO ASDIRECTED [facility] Assessment/Plan Comment:: Admit to swing bed with routine orders including physical and occupational therapy. She lives at the [facility], which is an independent living facility, will need to be independent before transfer or discharge. Started Macrobid for urinary tract infection. Pain controlled by Lidoderm patch, Tylenol and when necessary tramadol.
[2021-08-24] MEDS ORDERED: Denosumab 60 MG/1 ML Syringe SUBCUT SCH (10:00)
[2021-08-24] MEDS ORDERED: Polyethylene Glycol 3350 Powder 17 GM Packet PO PRN (10:11)
[2021-08-24] MEDS: traMADol 50 MG Tab PO PRN (14:38)
[2021-08-24] MEDS ORDERED: Warfarin 2.5 MG Tab PO ONE (16:00)
[2021-08-24] MEDS: metFORMIN 1,000 MG Tab PO SCH (17:10)
[2021-08-24] MEDS ORDERED: Triamcinolone Acetonide 0.1% Crm 15 GM Tube TOP SCH (21:00)
[2021-08-24] MEDS: Cholecalciferol (Vitamin D3) 25 MCG Tab PO SCH (21:20)
[2021-08-24] MEDS: Cyanocobalamin (Vitamin B12) 1,000 MCG Tab PO SCH (21:20)
[2021-08-24] MEDS: Nitrofurantoin Monohydrate/Macrocrystalline 100 MG Cap PO SCH (21:20)
[2021-08-24] MEDS: LIDOCAINE PATCH TRDERM SCH (21:20)
[2021-08-24] MEDS: Magnesium Oxide 400 MG Tab PO SCH (21:20)
[2021-08-25] MEDS: Levothyroxine 50 MCG Tab PO SCH (05:20)
[2021-08-25] MEDS: Losartan 50 MG Tab PO SCH (09:10)
[2021-08-25] MEDS: Lidocaine 4% 1 each Patch TOP SCH (09:10)
[2021-08-25] MEDS: metFORMIN 1,000 MG Tab PO SCH ×2 (09:10→17:15)
[2021-08-25] MEDS: Famotidine 20 MG Tab PO SCH (09:11)
[2021-08-25] MEDS: Nitrofurantoin Monohydrate/Macrocrystalline 100 MG Cap PO SCH ×2 (09:11→20:28)
[2021-08-25] MEDS: Diltiazem 240 MG Cap.ER PO SCH (09:11)
[2021-08-25] MEDS: Acetaminophen 500 MG Tab PO SCH ×3 (11:27→22:36)
[2021-08-25] MEDS ORDERED: Warfarin 2.5 MG Tab PO ONE (16:00)
[2021-08-25] MEDS ORDERED: Ondansetron 4 MG Tab.DIS PO PRN (17:23)
[2021-08-25] MEDS: Cholecalciferol (Vitamin D3) 25 MCG Tab PO SCH (20:27)
[2021-08-25] MEDS: Magnesium Oxide 400 MG Tab PO SCH (20:27)
[2021-08-25] MEDS: Cyanocobalamin (Vitamin B12) 1,000 MCG Tab PO SCH (20:28)
[2021-08-25] MEDS: LIDOCAINE PATCH TRDERM SCH (23:19)
[2021-08-26] MEDS: Levothyroxine 50 MCG Tab PO SCH (06:12)
[2021-08-26] MEDS: metFORMIN 1,000 MG Tab PO SCH ×2 (08:35→17:14)
[2021-08-26] MEDS: Nitrofurantoin Monohydrate/Macrocrystalline 100 MG Cap PO SCH ×2 (08:36→21:04)
[2021-08-26] MEDS: Pravastatin 20 MG Tab PO SCH (08:36)
[2021-08-26] MEDS: Losartan 50 MG Tab PO SCH (08:36)
[2021-08-26] MEDS: Diltiazem 240 MG Cap.ER PO SCH (08:36)
[2021-08-26] MEDS: Lidocaine 4% 1 each Patch TOP SCH (08:36)
[2021-08-26] MEDS: Acetaminophen 500 MG Tab PO SCH ×3 (08:37→21:05)
[2021-08-26] MEDS: Famotidine 20 MG Tab PO SCH (08:37)
[2021-08-26] MEDS: Warfarin 2.5 MG Tab PO SCH (17:14)
[2021-08-26] MEDS: LIDOCAINE PATCH TRDERM SCH (21:00)
[2021-08-26] MEDS: Magnesium Oxide 400 MG Tab PO SCH (21:05)
[2021-08-26] MEDS: Cholecalciferol (Vitamin D3) 25 MCG Tab PO SCH (21:06)
[2021-08-26] MEDS: Cyanocobalamin (Vitamin B12) 1,000 MCG Tab PO SCH (21:06)
[2021-08-27] MEDS: Levothyroxine 50 MCG Tab PO SCH (05:31)
[2021-08-27] MEDS: metFORMIN 1,000 MG Tab PO SCH ×2 (08:17→17:43)
[2021-08-27] MEDS: Losartan 50 MG Tab PO SCH (08:17)
[2021-08-27] MEDS: Lidocaine 4% 1 each Patch TOP SCH (08:17)
[2021-08-27] MEDS: Nitrofurantoin Monohydrate/Macrocrystalline 100 MG Cap PO SCH ×2 (08:18→21:22)
[2021-08-27] MEDS: Acetaminophen 500 MG Tab PO SCH ×3 (08:18→21:22)
[2021-08-27] MEDS: Diltiazem 240 MG Cap.ER PO SCH (08:18)
[2021-08-27] MEDS: Famotidine 20 MG Tab PO SCH (08:18)
--- NOTE | 2021-08-27 09:12 | PCM.EKG ---
#1 Interpretation EKG Date: 08/18/21 Time: 14:41 Rhythm: NSR Rate (Beats/Min): 93 [place]: Normal P-Wave: Present QRS: Normal ST-T: Normal QT: Normal IL/PQ Interval: 91 Comparison: No Change EKG Interpretation Comments: NSR Prolonged QT
[2021-08-27] MEDS: LIDOCAINE PATCH TRDERM SCH (21:21)
[2021-08-27] MEDS: Cholecalciferol (Vitamin D3) 25 MCG Tab PO SCH (21:22)
[2021-08-27] MEDS: Magnesium Oxide 400 MG Tab PO SCH (21:23)
[2021-08-27] MEDS: Cyanocobalamin (Vitamin B12) 1,000 MCG Tab PO SCH (21:23)
[2021-08-28] MEDS: Levothyroxine 50 MCG Tab PO SCH (05:32)
[2021-08-28] MEDS: metFORMIN 1,000 MG Tab PO SCH ×2 (08:13→18:15)
[2021-08-28] MEDS: Nitrofurantoin Monohydrate/Macrocrystalline 100 MG Cap PO SCH ×2 (10:00→20:18)
[2021-08-28] MEDS: Losartan 50 MG Tab PO SCH (10:00)
[2021-08-28] MEDS: Famotidine 20 MG Tab PO SCH (10:00)
[2021-08-28] MEDS: Diltiazem 240 MG Cap.ER PO SCH (10:00)
[2021-08-28] MEDS: Pravastatin 20 MG Tab PO SCH (10:01)
[2021-08-28] MEDS: Acetaminophen 500 MG Tab PO SCH ×3 (10:01→20:18)
[2021-08-28] MEDS: Lidocaine 4% 1 each Patch TOP SCH (10:02)
[2021-08-28] MEDS: Magnesium Oxide 400 MG Tab PO SCH (20:17)
[2021-08-28] MEDS: Cyanocobalamin (Vitamin B12) 1,000 MCG Tab PO SCH (20:18)
[2021-08-28] MEDS: Cholecalciferol (Vitamin D3) 25 MCG Tab PO SCH (20:18)
[2021-08-28] MEDS: LIDOCAINE PATCH TRDERM SCH (20:19)
[2021-08-29] MEDS: Levothyroxine 50 MCG Tab PO SCH (06:33)
[2021-08-29] MEDS: metFORMIN 1,000 MG Tab PO SCH ×2 (08:11→19:39)
[2021-08-29] MEDS: Lidocaine 4% 1 each Patch TOP SCH (08:11)
[2021-08-29] MEDS: Losartan 50 MG Tab PO SCH (08:12)
[2021-08-29] MEDS: Famotidine 20 MG Tab PO SCH (08:12)
[2021-08-29] MEDS: Nitrofurantoin Monohydrate/Macrocrystalline 100 MG Cap PO SCH ×2 (08:13→20:56)
[2021-08-29] MEDS: Acetaminophen 500 MG Tab PO SCH ×3 (08:14→20:56)
[2021-08-29] MEDS: Diltiazem 240 MG Cap.ER PO SCH (08:15)
[2021-08-29] MEDS: Warfarin 2.5 MG Tab PO SCH (16:50)
[2021-08-29] MEDS: Magnesium Oxide 400 MG Tab PO SCH (20:56)
[2021-08-29] MEDS: Cholecalciferol (Vitamin D3) 25 MCG Tab PO SCH (21:04)
[2021-08-29] MEDS: Cyanocobalamin (Vitamin B12) 1,000 MCG Tab PO SCH (21:04)
[2021-08-29] MEDS: LIDOCAINE PATCH TRDERM SCH (21:05)
[2021-08-29] MEDS: traMADol 50 MG Tab PO PRN (21:58)
[2021-08-30] MEDS: Levothyroxine 100 MCG Tab PO SCH (06:32)
[2021-08-30] MEDS: metFORMIN 1,000 MG Tab PO SCH ×2 (08:26→18:34)
[2021-08-30] MEDS: Losartan 50 MG Tab PO SCH (08:27)
[2021-08-30] MEDS: Lidocaine 4% 1 each Patch TOP SCH (08:27)
[2021-08-30] MEDS: Diltiazem 240 MG Cap.ER PO SCH (08:28)
[2021-08-30] MEDS: Nitrofurantoin Monohydrate/Macrocrystalline 100 MG Cap PO SCH ×2 (08:28→21:10)
[2021-08-30] MEDS: Acetaminophen 500 MG Tab PO SCH ×3 (08:29→21:11)
[2021-08-30] MEDS: Famotidine 20 MG Tab PO SCH (08:30)
--- NOTE | 2021-08-30 08:32 | PCM.PN ---
- General Info Date of Service: 08/30/21 Admission Dx/Problem (Free Text): Patient states that she has a little bit of neck pain. She says she brought her neck. About a year or 2 ago and wore a neck brace. Since then she is a little bit of pain that is ongoing. No arm weakness or paresthesias. She states her back has some pain in the Tylenol does help. She has no chest pain or shortness of breath. - Patient Data Vitals - Most Recent: Last Vital Signs Temp 97.9 F 08/29/21 08:21 Pulse 108 H 08/29/21 08:21 Resp 18 08/29/21 08:21 BP 163/79 H 08/30/21 08:27 Pulse Ox 94 L 08/29/21 08:21 Weight - Most Recent: 192 lb 7 oz Lab Results Last 24 Hours: Laboratory Results - last 24 hr 08/30/21 Range/Units 06:30 PT 24.8 H (9.0-11.1) sec INR 2.44 H (1.00-1.24) Med Orders - Current: Current Medications Acetaminophen (Acetaminophen 500 Mg Tab) 1,000 mg PO TID [facility] Last Admin: 08/30/21 08:29 Dose: 1,000 mg Documented by: Cholecalciferol (Cholecalciferol (Vitamin D3) 25 Mcg Tab) 125 mcg PO BEDTIME [facility] Last Admin: 08/29/21 21:04 Dose: 125 mcg Documented by: Cyanocobalamin (Cyanocobalamin (Vitamin B12) 1,000 Mcg Tab) 1,000 mcg PO BEDTIME [facility] Last Admin: 08/29/21 21:04 Dose: 1,000 mcg Documented by: Diltiazem HCl (Diltiazem 240 Mg Cap.Er) 240 mg PO DAILY [facility] Last Admin: 08/30/21 08:28 Dose: 240 mg Documented by: Famotidine (Famotidine 20 Mg Tab) 20 mg PO DAILY [facility] Last Admin: 08/30/21 08:30 Dose: 20 mg Documented by: Levothyroxine Sodium (Levothyroxine 50 Mcg Tab) 50 mcg PO MOTUWETHFRSA@0600 [facility] Last Admin: 08/29/21 06:33 Dose: 50 mcg Documented by: Levothyroxine Sodium (Levothyroxine 100 Mcg Tab) 100 mcg PO MONROE@0600 [facility] Last Admin: 08/30/21 06:32 Dose: 100 mcg Documented by: Lidocaine (Lidocaine 4% 1 Each Patch) 1 each TOP DAILY [facility] Last Admin: 08/30/21 08:27 Dose: 1 each Documented by: Losartan Potassium (Losartan 50 Mg Tab) 50 mg PO DAILY [facility] Last Admin: 08/30/21 08:27 Dose: 50 mg Documented by: Magnesium Oxide (Magnesium Oxide 400 Mg Tab) 400 mg PO BEDTIME [facility] Last Admin: 08/29/21 20:56 Dose: 400 mg Documented by: Metformin HCl (Metformin 1,000 Mg Tab) 1,000 mg PO BIDMEALS [facility] Last Admin: 08/30/21 08:26 Dose: 1,000 mg Documented by: Miscellaneous Information (Lidocaine Patch) 1 ea TRDERM BEDTIME [facility] Last Admin: 08/29/21 21:05 Dose: 1 ea Documented by: Nitrofurantoin Macrocrystals (Nitrofurantoin Monohydrate/Macrocrystalline 100 Mg Cap) 100 mg PO BID [facility] Last Admin: 08/30/21 08:28 Dose: 100 mg Documented by: Ondansetron HCl (Ondansetron 4 Mg Tab.Dis) 4 mg PO Q6H PRN PRN Reason: Nausea/Vomiting Polyethylene Glycol (Polyethylene Glycol 3350 Powder 17 Gm Packet) 17 gm PO DAILY PRN PRN Reason: CONSTIPATION Pravastatin Sodium (Pravastatin 20 Mg Tab) 20 mg PO MOWEFR@0900 [facility] Last Admin: 08/28/21 10:01 Dose: 20 mg Documented by: Tramadol HCl (Tramadol 50 Mg Tab) 100 mg PO Q8H PRN PRN Reason: Pain Last Admin: 08/29/21 21:58 Dose: 100 mg Documented by: Warfarin Sodium (Warfarin Sliding Scale) 1 each PO ASDIRECTED [facility] Warfarin Sodium (Warfarin 2.5 Mg Tab) 2.5 mg PO DAILY@1600 [facility] Last Admin: 08/29/21 16:50 Dose: 2.5 mg Documented by: Discontinued Medications Acetaminophen (Acetaminophen 650 Mg Tab.Er) 650 mg PO Q4H PRN PRN Reason: Pain Denosumab (Denosumab 60 Mg/1 Ml Syringe) 60 mg SUBCUT Q180D [facility] Last Admin: 08/24/21 19:54 Dose: Not Given Documented by: Triamcinolone Acetonide (Triamcinolone Acetonide 0.1% Crm 15 Gm Tube) gm TOP BID NOLAN Warfarin Sodium (Warfarin 2.5 Mg Tab) 2.5 mg PO ONETIME ONE Stop: 08/24/21 16:01 Last Admin: 08/24/21 17:05 Dose: 2.5 mg Documented by: Warfarin Sodium (Warfarin 2.5 Mg Tab) 2.5 mg PO ONETIME ONE Stop: 08/25/21 16:01 Last Admin: 08/25/21 17:15 Dose: 2.5 mg Documented by: - Exam General: Alert, Oriented, Cooperative Neck: Supple Lungs: Clear to Auscultation, Normal Respiratory Effort Cardiovascular: Regular Rate, Regular Rhythm, Murmurs Extremities: No Pedal Edema - Patient Data Lab Results Last 24 hrs: Laboratory Results - last 24 hr 08/30/21 Range/Units 06:30 PT 24.8 H (9.0-11.1) sec INR 2.44 H (1.00-1.24) Sepsis Event Note - Evaluation Sepsis Screening Result: No Definite Risk - Focused Exam Vital Signs: Vital Signs BP 08/30/21 08:27 163/79 H - Problem List & Annotations (1) Ambulatory dysfunction SNOMED Code(s): 183861963 Code(s): R26.2 - DIFFICULTY IN WALKING, NOT ELSEWHERE CLASSIFIED Status: Acute Current Visit: Yes (2) Debility SNOMED Code(s): 17738080 Code(s): R53.81 - OTHER MALAISE Status: Acute Current Visit: Yes (3) Recurrent falls SNOMED Code(s): 568388225 Code(s): R29.6 - REPEATED FALLS Status: Acute Current Visit: Yes (4) UTI (urinary tract infection) SNOMED Code(s): 07751392 Code(s): N39.0 - URINARY TRACT INFECTION, SITE NOT SPECIFIED Status: Acute Current Visit: Yes Qualifiers: Urinary tract infection type: acute cystitis (5) Back pain SNOMED Code(s): 998363102 Code(s): M54.9 - DORSALGIA, UNSPECIFIED Status: Acute Current Visit: No Qualifiers: Back pain location: low back pain (6) Cervical strain SNOMED Code(s): 745225179 Code(s): S16.1XXA - STRAIN OF MUSCLE, FASCIA AND TENDON AT NECK LEVEL, INIT Status: Acute Current Visit: No (7) Diabetes type 2, controlled SNOMED Code(s): 98016203, 170695704 Code(s): E11.9 - TYPE 2 DIABETES MELLITUS WITHOUT COMPLICATIONS Status: Chronic Current Visit: No Qualifiers: Diabetes mellitus extermination supervisor insulin use: without extermination supervisor use (8) Systolic essential hypertension SNOMED Code(s): 234008512 Code(s): I10 - ESSENTIAL (PRIMARY) HYPERTENSION Status: Chronic Current Visit: No - Problem List Review Problem List Initiated/Reviewed/Updated: Yes - Plan Plan:: Continue PT/OT. Continue current care.
[2021-08-30] MEDS: Warfarin 2.5 MG Tab PO SCH (16:50)
[2021-08-30] MEDS: Magnesium Oxide 400 MG Tab PO SCH (21:10)
[2021-08-30] MEDS: LIDOCAINE PATCH TRDERM SCH (21:10)
[2021-08-30] MEDS: Cholecalciferol (Vitamin D3) 25 MCG Tab PO SCH (21:12)
[2021-08-30] MEDS: Cyanocobalamin (Vitamin B12) 1,000 MCG Tab PO SCH (21:13)
[2021-08-30] MEDS ORDERED: Levofloxacin 500 MG Tab PO SCH ×2 (22:30→23:45)
[2021-08-31] MEDS ORDERED: Levofloxacin 750 MG Tab PO SCH (00:45)
[2021-08-31] MEDS: Levothyroxine 50 MCG Tab PO SCH (05:59)
[2021-08-31] MEDS: Losartan 50 MG Tab PO SCH (08:36)
[2021-08-31] MEDS: Pravastatin 20 MG Tab PO SCH (08:36)
[2021-08-31] MEDS: metFORMIN 1,000 MG Tab PO SCH ×2 (08:36→17:34)
[2021-08-31] MEDS: Famotidine 20 MG Tab PO SCH (08:36)
[2021-08-31] MEDS: Diltiazem 240 MG Cap.ER PO SCH (08:36)
[2021-08-31] MEDS: Lidocaine 4% 1 each Patch TOP SCH (08:36)
--- NOTE | 2021-08-31 08:36 | PCM.PN ---
- General Info Date of Service: 08/31/21 Admission Dx/Problem (Free Text): Patient has no concerns today. She says she does not feel weak today. Yesterday she had a lot of weakness and therefore we checked her white count which is 22,000. Did a chest x-ray that looked normal but wait for radiology interpretation. She denies fevers, chills, chest pain, shortness of breath or cough. She had dysuria yesterday she denies it today. The ER doc put her on 750 mg of Levaquin every 48 hours starting last night. - Patient Data Vitals - Most Recent: Last Vital Signs Temp 98.3 F 08/30/21 09:00 Pulse 99 08/30/21 09:00 Resp 18 08/30/21 09:00 BP 163/79 H 08/30/21 09:00 Pulse Ox 92 L 08/30/21 09:00 Weight - Most Recent: 192 lb 7 oz Lab Results Last 24 Hours: Laboratory Results - last 24 hr 08/30/21 08/30/21 08/30/21 Range/Units 14:30 14:30 16:25 WBC 22.7 H (3.0-10.3) x10-3/uL RBC 3.73 (3.60-5.20) x10(6)uL Hgb 11.0 L (11.4-15.5) g/dL Hct 34.2 (34.2-48.2) % MCV 91.7 (76.7-100.5) fL MCH 29.4 (23.9-33.9) pg MCHC 32.0 (31.9-34.8) g/dL RDW 16.5 (12.3-16.5) % Plt Count 449 (151-488) x10(3)uL MPV 7.0 L (7.1-12.4) fL Add Manual Diff Yes Neutrophils % (Manual) 93 H (46-82) % Band Neutrophils % (0-6) % Lymphocytes % (Manual) 2 L (13-37) % Monocytes % (Manual) 3 L (4-12) % Eosinophils % (Manual) 2 (0-5) % PT (9.0-11.1) sec INR (1.00-1.24) Sodium 139 (135-145) mmol/L Potassium 3.7 (3.5-5.3) mmol/L Chloride 102 (100-110) mmol/L Carbon Dioxide 26 (21-32) mmol/L BUN 16 (7-18) mg/dL Creatinine 1.0 (0.55-1.02) mg/dL Est Cr Clr Drug Dosing 37.01 mL/min Estimated GFR (MDRD) 53 L (>60) BUN/Creatinine Ratio 16.0 (9-20) Glucose 180 H (80-116) mg/dL Calcium 9.0 (8.6-10.2) mg/dL Urine Color Yellow (YELLOW) Urine Appearance Slightly cloudy (CLEAR) Urine pH 5.0 (5.0-6.5) Ur Specific [place] 1.025 (1.010-1.025) Urine Protein 30 H (NEGATIVE) mg/dL Urine Glucose (UA) Normal (NORMAL) mg/dL Urine Ketones 50 H (NEGATIVE) mg/dL Urine Occult Blood Negative (NEGATIVE) Urine Nitrite Negative (NEGATIVE) Urine Bilirubin Small H (NEGATIVE) Urine Urobilinogen Normal (NEGATIVE) mg/dL Ur Leukocyte Esterase Small H (NEGATIVE) Urine RBC 10-20 H (0-5) Urine WBC 5-10 H (0-5) Ur Squamous Epith Cells Moderate H (NS,R,O) Urine Bacteria Few H (NS) 08/31/21 08/31/21 Range/Units 06:15 06:15 WBC 22.2 H (3.0-10.3) x10-3/uL RBC 3.81 (3.60-5.20) x10(6)uL Hgb 11.6 (11.4-15.5) g/dL Hct 34.6 (34.2-48.2) % MCV 91.0 (76.7-100.5) fL MCH 30.5 (23.9-33.9) pg MCHC 33.6 (31.9-34.8) g/dL RDW 16.5 (12.3-16.5) % Plt Count 437 (151-488) x10(3)uL MPV 7.3 (7.1-12.4) fL Add Manual Diff Yes Neutrophils % (Manual) 92 H (46-82) % Band Neutrophils % 1 (0-6) % Lymphocytes % (Manual) 4 L (13-37) % Monocytes % (Manual) 3 L (4-12) % Eosinophils % (Manual) (0-5) % PT 27.2 H (9.0-11.1) sec INR 2.69 H (1.00-1.24) Sodium (135-145) mmol/L Potassium (3.5-5.3) mmol/L Chloride (100-110) mmol/L Carbon Dioxide (21-32) mmol/L BUN (7-18) mg/dL Creatinine (0.55-1.02) mg/dL Est Cr Clr Drug Dosing mL/min Estimated GFR (MDRD) (>60) BUN/Creatinine Ratio (9-20) Glucose (80-116) mg/dL Calcium (8.6-10.2) mg/dL Urine Color (YELLOW) Urine Appearance (CLEAR) Urine pH (5.0-6.5) Ur Specific [place] (1.010-1.025) Urine Protein (NEGATIVE) mg/dL Urine Glucose (UA) (NORMAL) mg/dL Urine Ketones (NEGATIVE) mg/dL Urine Occult Blood (NEGATIVE) Urine Nitrite (NEGATIVE) Urine Bilirubin (NEGATIVE) Urine Urobilinogen (NEGATIVE) mg/dL Ur Leukocyte Esterase (NEGATIVE) Urine RBC (0-5) Urine WBC (0-5) Ur Squamous Epith Cells (NS,R,O) Urine Bacteria (NS) Med Orders - Current: Current Medications Acetaminophen (Acetaminophen 500 Mg Tab) 1,000 mg PO TID [facility] Last Admin: 08/30/21 21:11 Dose: 1,000 mg Documented by: Cholecalciferol (Cholecalciferol (Vitamin D3) 25 Mcg Tab) 125 mcg PO BEDTIME [facility] Last Admin: 08/30/21 21:12 Dose: 125 mcg Documented by: Cyanocobalamin (Cyanocobalamin (Vitamin B12) 1,000 Mcg Tab) 1,000 mcg PO BEDTIME [facility] Last Admin: 08/30/21 21:13 Dose: 1,000 mcg Documented by: Diltiazem HCl (Diltiazem 240 Mg Cap.Er) 240 mg PO DAILY [facility] Last Admin: 08/30/21 08:28 Dose: 240 mg Documented by: Famotidine (Famotidine 20 Mg Tab) 20 mg PO DAILY [facility] Last Admin: 08/30/21 08:30 Dose: 20 mg Documented by: Levofloxacin (Levofloxacin 750 Mg Tab) 750 mg PO Q48H [facility] Last Admin: 08/31/21 01:19 Dose: 750 mg Documented by: Levothyroxine Sodium (Levothyroxine 50 Mcg Tab) 50 mcg PO MOTUWETHFRSA@0600 [facility] Last Admin: 08/31/21 05:59 Dose: 50 mcg Documented by: Levothyroxine Sodium (Levothyroxine 100 Mcg Tab) 100 mcg PO MONROE@0600 [facility] Last Admin: 08/30/21 06:32 Dose: 100 mcg Documented by: Lidocaine (Lidocaine 4% 1 Each Patch) 1 each TOP DAILY [facility] Last Admin: 08/30/21 08:27 Dose: 1 each Documented by: Losartan Potassium (Losartan 50 Mg Tab) 50 mg PO DAILY [facility] Last Admin: 08/30/21 08:27 Dose: 50 mg Documented by: Magnesium Oxide (Magnesium Oxide 400 Mg Tab) 400 mg PO BEDTIME [facility] Last Admin: 08/30/21 21:10 Dose: 400 mg Documented by: Metformin HCl (Metformin 1,000 Mg Tab) 1,000 mg PO BIDMEALS [facility] Last Admin: 08/30/21 18:34 Dose: 1,000 mg Documented by: Miscellaneous Information (Lidocaine Patch) 1 ea TRDERM BEDTIME [facility] Last Admin: 08/30/21 21:10 Dose: 1 ea Documented by: Ondansetron HCl (Ondansetron 4 Mg Tab.Dis) 4 mg PO Q6H PRN PRN Reason: Nausea/Vomiting Polyethylene Glycol (Polyethylene Glycol 3350 Powder 17 Gm Packet) 17 gm PO DAILY PRN PRN Reason: CONSTIPATION Pravastatin Sodium (Pravastatin 20 Mg Tab) 20 mg PO MOWEFR@0900 [facility] Last Admin: 08/28/21 10:01 Dose: 20 mg Documented by: Tramadol HCl (Tramadol 50 Mg Tab) 100 mg PO Q8H PRN PRN Reason: Pain Last Admin: 08/29/21 21:58 Dose: 100 mg Documented by: Warfarin Sodium (Warfarin Sliding Scale) 1 each PO ASDIRECTED [facility] Warfarin Sodium (Warfarin 2.5 Mg Tab) 1.25 mg PO ONETIME ONE Stop: 08/31/21 16:01 Discontinued Medications Acetaminophen (Acetaminophen 650 Mg Tab.Er) 650 mg PO Q4H PRN PRN Reason: Pain Denosumab (Denosumab 60 Mg/1 Ml Syringe) 60 mg SUBCUT Q180D [facility] Last Admin: 08/24/21 19:54 Dose: Not Given Documented by: Levofloxacin (Levofloxacin 500 Mg Tab) 500 mg PO Q24H [facility] Last Admin: 08/30/21 23:48 Dose: Not Given Documented by: Nitrofurantoin Macrocrystals (Nitrofurantoin Monohydrate/Macrocrystalline 100 Mg Cap) 100 mg PO BID [facility] Last Admin: 08/30/21 21:10 Dose: 100 mg Documented by: Triamcinolone Acetonide (Triamcinolone Acetonide 0.1% Crm 15 Gm Tube) gm TOP BID [facility] Warfarin Sodium (Warfarin 2.5 Mg Tab) 2.5 mg PO ONETIME ONE Stop: 08/24/21 16:01 Last Admin: 08/24/21 17:05 Dose: 2.5 mg Documented by: Warfarin Sodium (Warfarin 2.5 Mg Tab) 2.5 mg PO ONETIME ONE Stop: 08/25/21 16:01 Last Admin: 08/25/21 17:15 Dose: 2.5 mg Documented by: Warfarin Sodium (Warfarin 2.5 Mg Tab) 2.5 mg PO DAILY@1600 [facility] Last Admin: 08/30/21 16:50 Dose: 2.5 mg Documented by: - Exam General: Alert, Oriented, Cooperative Neck: Supple Lungs: Clear to Auscultation, Normal Respiratory Effort Cardiovascular: Regular Rhythm, Tachycardia Extremities: No Pedal Edema - Patient Data Lab Results Last 24 hrs: Laboratory Results - last 24 hr 08/30/21 08/30/21 08/30/21 Range/Units 14:30 14:30 16:25 WBC 22.7 H (3.0-10.3) x10-3/uL RBC 3.73 (3.60-5.20) x10(6)uL Hgb 11.0 L (11.4-15.5) g/dL Hct 34.2 (34.2-48.2) % MCV 91.7 (76.7-100.5) fL MCH 29.4 (23.9-33.9) pg MCHC 32.0 (31.9-34.8) g/dL RDW 16.5 (12.3-16.5) % Plt Count 449 (151-488) x10(3)uL MPV 7.0 L (7.1-12.4) fL Add Manual Diff Yes Neutrophils % (Manual) 93 H (46-82) % Band Neutrophils % (0-6) % Lymphocytes % (Manual) 2 L (13-37) % Monocytes % (Manual) 3 L (4-12) % Eosinophils % (Manual) 2 (0-5) % PT (9.0-11.1) sec INR (1.00-1.24) Sodium 139 (135-145) mmol/L Potassium 3.7 (3.5-5.3) mmol/L Chloride 102 (100-110) mmol/L Carbon Dioxide 26 (21-32) mmol/L BUN 16 (7-18) mg/dL Creatinine 1.0 (0.55-1.02) mg/dL Est Cr Clr Drug Dosing 37.01 mL/min Estimated GFR (MDRD) 53 L (>60) BUN/Creatinine Ratio 16.0 (9-20) Glucose 180 H (80-116) mg/dL Calcium 9.0 (8.6-10.2) mg/dL Urine Color Yellow (YELLOW) Urine Appearance Slightly cloudy (CLEAR) Urine pH 5.0 (5.0-6.5) Ur Specific [place] 1.025 (1.010-1.025) Urine Protein 30 H (NEGATIVE) mg/dL Urine Glucose (UA) Normal (NORMAL) mg/dL Urine Ketones 50 H (NEGATIVE) mg/dL Urine Occult Blood Negative (NEGATIVE) Urine Nitrite Negative (NEGATIVE) Urine Bilirubin Small H (NEGATIVE) Urine Urobilinogen Normal (NEGATIVE) mg/dL Ur Leukocyte Esterase Small H (NEGATIVE) Urine RBC 10-20 H (0-5) Urine WBC 5-10 H (0-5) Ur Squamous Epith Cells Moderate H (NS,R,O) Urine Bacteria Few H (NS) 08/31/21 08/31/21 Range/Units 06:15 06:15 WBC 22.2 H (3.0-10.3) x10-3/uL RBC 3.81 (3.60-5.20) x10(6)uL Hgb 11.6 (11.4-15.5) g/dL Hct 34.6 (34.2-48.2) % MCV 91.0 (76.7-100.5) fL MCH 30.5 (23.9-33.9) pg MCHC 33.6 (31.9-34.8) g/dL RDW 16.5 (12.3-16.5) % Plt Count 437 (151-488) x10(3)uL MPV 7.3 (7.1-12.4) fL Add Manual Diff Yes Neutrophils % (Manual) 92 H (46-82) % Band Neutrophils % 1 (0-6) % Lymphocytes % (Manual) 4 L (13-37) % Monocytes % (Manual) 3 L (4-12) % Eosinophils % (Manual) (0-5) % PT 27.2 H (9.0-11.1) sec INR 2.69 H (1.00-1.24) Sodium (135-145) mmol/L Potassium (3.5-5.3) mmol/L Chloride (100-110) mmol/L Carbon Dioxide (21-32) mmol/L BUN (7-18) mg/dL Creatinine (0.55-1.02) mg/dL Est Cr Clr Drug Dosing mL/min Estimated GFR (MDRD) (>60) BUN/Creatinine Ratio (9-20) Glucose (80-116) mg/dL Calcium (8.6-10.2) mg/dL Urine Color (YELLOW) Urine Appearance (CLEAR) Urine pH (5.0-6.5) Ur Specific [place] (1.010-1.025) Urine Protein (NEGATIVE) mg/dL Urine Glucose (UA) (NORMAL) mg/dL Urine Ketones (NEGATIVE) mg/dL Urine Occult Blood (NEGATIVE) Urine Nitrite (NEGATIVE) Urine Bilirubin (NEGATIVE) Urine Urobilinogen (NEGATIVE) mg/dL Ur Leukocyte Esterase (NEGATIVE) Urine RBC (0-5) Urine WBC (0-5) Ur Squamous Epith Cells (NS,R,O) Urine Bacteria (NS) Result Diagrams: 08/31/21 06:15 08/30/21 14:30 Sepsis Event Note - Evaluation Sepsis Screening Result: No Definite Risk - Problem List & Annotations (1) Ambulatory dysfunction SNOMED Code(s): 320256979 Code(s): R26.2 - DIFFICULTY IN WALKING, NOT ELSEWHERE CLASSIFIED Status: Acute Current Visit: Yes (2) Debility SNOMED Code(s): 22349954 Code(s): R53.81 - OTHER MALAISE Status: Acute Current Visit: Yes (3) Recurrent falls SNOMED Code(s): 431532833 Code(s): R29.6 - REPEATED FALLS Status: Acute Current Visit: Yes (4) UTI (urinary tract infection) SNOMED Code(s): 92252514 Code(s): N39.0 - URINARY TRACT INFECTION, SITE NOT SPECIFIED Status: Acute Current Visit: Yes Qualifiers: Urinary tract infection type: acute cystitis (5) Back pain SNOMED Code(s): 576126601 Code(s): M54.9 - DORSALGIA, UNSPECIFIED Status: Acute Current Visit: No Qualifiers: Back pain location: low back pain (6) Cervical strain SNOMED Code(s): 090436476 Code(s): S16.1XXA - STRAIN OF MUSCLE, FASCIA AND TENDON AT NECK LEVEL, INIT Status: Acute Current Visit: No (7) Diabetes type 2, controlled SNOMED Code(s): 04571721, 878963041 Code(s): E11.9 - TYPE 2 DIABETES MELLITUS WITHOUT COMPLICATIONS Status: Chronic Current Visit: No Qualifiers: Diabetes 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 insulin use: without mcfp use (8) Systolic essential hypertension SNOMED Code(s): 859570938 Code(s): I10 - ESSENTIAL (PRIMARY) HYPERTENSION Status: Chronic Current Visit: No - Problem List Review Problem List Initiated/Reviewed/Updated: Yes - My Orders Last 24 Hours: My Active Orders 08/30/21 15:57 Chest 1V Frontal [CR] Routine 08/31/21 07:21 Consult to Flight Communications Officer [CONS] Routine 08/31/21 07:50 CORONAVIRUS COVID-19 GORDO [MOLEC] Routine 09/01/21 07:09 INR,PT,PROTHROMBIN TIME [COAG] DAILY 09/02/21 07:09 INR,PT,PROTHROMBIN TIME [COAG] DAILY 09/03/21 07:09 INR,PT,PROTHROMBIN TIME [COAG] DAILY - Plan Plan:: 1. Patient still tachycardic so we will get EKG today. Patient states she has a history of A. fib. 2. Continue the Levaquin most presumably for the UTI. Wait for radiology interpretation of the chest x-ray. 3. Blood cultures x2 just to make sure or head of the game if she has some Bacteremia.
[2021-08-31] MEDS: Acetaminophen 500 MG Tab PO SCH ×3 (08:37→20:57)
[2021-08-31] MEDS ORDERED: Sodium Chloride 0.9% 10 ML Syringe FLUSH PRN (09:53)
[2021-08-31] MEDS: Sodium Chloride 0.9% 1,000 ML IV SCH ×2 (10:06→17:35)
--- NOTE | 2021-08-31 10:43 | CR ---
INDICATION: Weakness and elevated white blood count. CHEST, ONE VIEW: An AP upright view of the chest in a wheelchair was obtained, 08/30/21 and compared with 09/09/15 and 03/12/10. Pleuroparenchymal changes are noted at the left lung base raising question of pneumonia and pleuritis. The heart did not appear grossly enlarged. However, upper lung field pulmonary vasculature appears relatively prominent raising question of pulmonary vascular congestion, which could be on the basis of a noncardiac cause - correlate clinically. The aorta is tortuous with calcification suggested in the arch. The chest was somewhat rotated to the left, making it difficult to exclude dextroconvex scoliosis of the thoracic spine. IMPRESSION: 1. Pleuroparenchymal changes at the left lung base may represent pneumonia and pleuritis, but should be correlated clinically. 2. ASD aorta. 3. Possible scoliosis. 4. Suggestion of pulmonary vascular congestion - correlate clinically. MTDD
[2021-08-31] MEDS ORDERED: Warfarin 2.5 MG Tab PO ONE (16:00)
[2021-08-31] MEDS: LIDOCAINE PATCH TRDERM SCH (20:55)
[2021-08-31] MEDS: Magnesium Oxide 400 MG Tab PO SCH (20:57)
[2021-08-31] MEDS: Cyanocobalamin (Vitamin B12) 1,000 MCG Tab PO SCH (20:57)
[2021-08-31] MEDS: Cholecalciferol (Vitamin D3) 25 MCG Tab PO SCH (20:59)
[2021-09-01] MEDS: Levothyroxine 50 MCG Tab PO SCH (06:02)
[2021-09-01] MEDS: Lidocaine 4% 1 each Patch TOP SCH (08:32)
[2021-09-01] MEDS: metFORMIN 1,000 MG Tab PO SCH ×2 (08:32→17:22)
[2021-09-01] MEDS: Losartan 50 MG Tab PO SCH (08:33)
[2021-09-01] MEDS: Diltiazem 240 MG Cap.ER PO SCH (08:33)
[2021-09-01] MEDS: Famotidine 20 MG Tab PO SCH (08:33)
[2021-09-01] MEDS: Acetaminophen 500 MG Tab PO SCH ×3 (08:34→21:27)
--- NOTE | 2021-09-01 08:37 | PCM.PN ---
- General Info Date of Service: 09/01/21 Admission Dx/Problem (Free Text): Patient states she feels better today. Has not been nauseated. She denies cough, fevers, chills, dysuria, pyuria, hematuria. Nurses report that she has a bit more energy and strength. - Patient Data Vitals - Most Recent: Last Vital Signs Temp 98.5 F 08/31/21 09:00 Pulse 100 08/31/21 09:00 Resp 20 08/31/21 09:00 BP 146/62 H 09/01/21 08:33 Pulse Ox 91 L 08/31/21 09:00 Weight - Most Recent: 192 lb 7 oz I&O - Last 24 Hours: Intake & Output 08/31/21 09/01/21 09/01/21 22:59 06:59 14:59 Intake Total 1012 500 Balance 1012 500 Lab Results Last 24 Hours: Laboratory Results - last 24 hr 08/31/21 08/31/21 09/01/21 Range/Units 07:50 08:55 06:35 WBC (3.0-10.3) x10-3/uL RBC (3.60-5.20) x10(6)uL Hgb (11.4-15.5) g/dL Hct (34.2-48.2) % MCV (76.7-100.5) fL MCH (23.9-33.9) pg MCHC (31.9-34.8) g/dL RDW (12.3-16.5) % Plt Count (151-488) x10(3)uL MPV (7.1-12.4) fL Neut % (Auto) (30.8-76.2) % Lymph % (Auto) (18.4-52.1) % Dundy % (Auto) (4.4-15.7) % Eos % (Auto) (0.6-8.1) % Baso % (Auto) (0.2-1.5) % Neut # (Auto) (1.5-6.3) x10-3/uL Lymph # (Auto) (1.0-4.4) x10-3/uL Dundy # (Auto) (0.3-1.0) x10-3/uL Eos # (Auto) (0.0-0.8) x10-3/uL Baso # (Auto) (0.0-0.1) x10-3/uL PT 24.0 H (9.0-11.1) sec INR 2.35 H (1.00-1.24) Troponin I 12.6 (4.0-60.3) pg/mL SARS-CoV-2 RNA ([facility]) Negative (NEGATIVE) 09/01/21 Range/Units 06:35 WBC 11.7 H (3.0-10.3) x10-3/uL RBC 3.46 L (3.60-5.20) x10(6)uL Hgb 10.3 L (11.4-15.5) g/dL Hct 31.5 L (34.2-48.2) % MCV 90.9 (76.7-100.5) fL MCH 29.9 (23.9-33.9) pg MCHC 32.9 (31.9-34.8) g/dL RDW 16.4 (12.3-16.5) % Plt Count 389 (151-488) x10(3)uL MPV 7.4 (7.1-12.4) fL Neut % (Auto) 75.0 (30.8-76.2) % Lymph % (Auto) 12.7 L (18.4-52.1) % Dundy % (Auto) 7.0 (4.4-15.7) % Eos % (Auto) 4.3 (0.6-8.1) % Baso % (Auto) 1.0 (0.2-1.5) % Neut # (Auto) 8.8 H (1.5-6.3) x10-3/uL Lymph # (Auto) 1.5 (1.0-4.4) x10-3/uL Dundy # (Auto) 0.8 (0.3-1.0) x10-3/uL Eos # (Auto) 0.5 (0.0-0.8) x10-3/uL Baso # (Auto) 0.1 (0.0-0.1) x10-3/uL PT (9.0-11.1) sec INR (1.00-1.24) Troponin I (4.0-60.3) pg/mL SARS-CoV-2 RNA ([facility]) (NEGATIVE) Med Orders - Current: Current Medications Acetaminophen (Acetaminophen 500 Mg Tab) 1,000 mg PO TID [facility] Last Admin: 09/01/21 08:34 Dose: 1,000 mg Documented by: Cholecalciferol (Cholecalciferol (Vitamin D3) 25 Mcg Tab) 125 mcg PO BEDTIME [facility] Last Admin: 08/31/21 20:59 Dose: 125 mcg Documented by: Cyanocobalamin (Cyanocobalamin (Vitamin B12) 1,000 Mcg Tab) 1,000 mcg PO BEDTIME [facility] Last Admin: 08/31/21 20:57 Dose: 1,000 mcg Documented by: Diltiazem HCl (Diltiazem 240 Mg Cap.Er) 240 mg PO DAILY [facility] Last Admin: 09/01/21 08:33 Dose: 240 mg Documented by: Famotidine (Famotidine 20 Mg Tab) 20 mg PO DAILY [facility] Last Admin: 09/01/21 08:33 Dose: 20 mg Documented by: Sodium Chloride (Normal Saline) 1,000 mls @ 125 mls/hr IV ASDIRECTED [facility] Last Admin: 08/31/21 17:35 Dose: 125 mls/hr Documented by: Levofloxacin (Levofloxacin 750 Mg Tab) 750 mg PO Q48H [facility] Last Admin: 08/31/21 01:19 Dose: 750 mg Documented by: Levothyroxine Sodium (Levothyroxine 50 Mcg Tab) 50 mcg PO MOTUWETHFRSA@0600 [facility] Last Admin: 09/01/21 06:02 Dose: 50 mcg Documented by: Levothyroxine Sodium (Levothyroxine 100 Mcg Tab) 100 mcg PO MONROE@0600 [facility] Last Admin: 08/30/21 06:32 Dose: 100 mcg Documented by: Lidocaine (Lidocaine 4% 1 Each Patch) 1 each TOP DAILY [facility] Last Admin: 09/01/21 08:32 Dose: 1 each Documented by: Lisinopril (Lisinopril 10 Mg Tab) 10 mg PO DAILY [facility] Losartan Potassium (Losartan 50 Mg Tab) 50 mg PO DAILY [facility] Last Admin: 09/01/21 08:33 Dose: 50 mg Documented by: Magnesium Oxide (Magnesium Oxide 400 Mg Tab) 400 mg PO BEDTIME [facility] Last Admin: 08/31/21 20:57 Dose: 400 mg Documented by: Metformin HCl (Metformin 1,000 Mg Tab) 1,000 mg PO BIDMEALS [facility] Last Admin: 09/01/21 08:32 Dose: 1,000 mg Documented by: Miscellaneous Information (Lidocaine Patch) 1 ea TRDERM BEDTIME [facility] Last Admin: 08/31/21 20:55 Dose: 1 ea Documented by: Ondansetron HCl (Ondansetron 4 Mg Tab.Dis) 4 mg PO Q6H PRN PRN Reason: Nausea/Vomiting Polyethylene Glycol (Polyethylene Glycol 3350 Powder 17 Gm Packet) 17 gm PO DAILY PRN PRN Reason: CONSTIPATION Pravastatin Sodium (Pravastatin 20 Mg Tab) 20 mg PO MOWEFR@0900 [facility] Last Admin: 08/31/21 08:36 Dose: 20 mg Documented by: Sodium Chloride (Sodium Chloride 0.9% 10 Ml Syringe) 10 ml FLUSH ASDIRECTED PRN PRN Reason: Keep Vein Open Tramadol HCl (Tramadol 50 Mg Tab) 100 mg PO Q8H PRN PRN Reason: Pain Last Admin: 08/29/21 21:58 Dose: 100 mg Documented by: Warfarin Sodium (Warfarin Sliding Scale) 1 each PO ASDIRECTED [facility] Warfarin Sodium (Warfarin 2.5 Mg Tab) 2.5 mg PO DAILY@1600 [facility] Discontinued Medications Acetaminophen (Acetaminophen 650 Mg Tab.Er) 650 mg PO Q4H PRN PRN Reason: Pain Denosumab (Denosumab 60 Mg/1 Ml Syringe) 60 mg SUBCUT Q180D [facility] Last Admin: 08/24/21 19:54 Dose: Not Given Documented by: Levofloxacin (Levofloxacin 500 Mg Tab) 500 mg PO Q24H [facility] Last Admin: 08/30/21 23:48 Dose: Not Given Documented by: Nitrofurantoin Macrocrystals (Nitrofurantoin Monohydrate/Macrocrystalline 100 Mg Cap) 100 mg PO BID [facility] Last Admin: 08/30/21 21:10 Dose: 100 mg Documented by: Triamcinolone Acetonide (Triamcinolone Acetonide 0.1% Crm 15 Gm Tube) gm TOP BID [facility] Warfarin Sodium (Warfarin 2.5 Mg Tab) 2.5 mg PO ONETIME ONE Stop: 08/24/21 16:01 Last Admin: 08/24/21 17:05 Dose: 2.5 mg Documented by: Warfarin Sodium (Warfarin 2.5 Mg Tab) 2.5 mg PO ONETIME ONE Stop: 08/25/21 16:01 Last Admin: 08/25/21 17:15 Dose: 2.5 mg Documented by: Warfarin Sodium (Warfarin 2.5 Mg Tab) 2.5 mg PO DAILY@1600 [facility] Last Admin: 08/30/21 16:50 Dose: 2.5 mg Documented by: Warfarin Sodium (Warfarin 2.5 Mg Tab) 1.25 mg PO ONETIME ONE Stop: 08/31/21 16:01 Last Admin: 08/31/21 16:37 Dose: 1.25 mg Documented by: - Exam General: Alert, Oriented, Cooperative Lungs: Clear to Auscultation, Normal Respiratory Effort Cardiovascular: Regular Rate, Irregular Rhythm Extremities: No Pedal Edema - Patient Data Lab Results Last 24 hrs: Laboratory Results - last 24 hr 08/31/21 08/31/21 09/01/21 Range/Units 07:50 08:55 06:35 WBC (3.0-10.3) x10-3/uL RBC (3.60-5.20) x10(6)uL Hgb (11.4-15.5) g/dL Hct (34.2-48.2) % MCV (76.7-100.5) fL MCH (23.9-33.9) pg MCHC (31.9-34.8) g/dL RDW (12.3-16.5) % Plt Count (151-488) x10(3)uL MPV (7.1-12.4) fL Neut % (Auto) (30.8-76.2) % Lymph % (Auto) (18.4-52.1) % Dundy % (Auto) (4.4-15.7) % Eos % (Auto) (0.6-8.1) % Baso % (Auto) (0.2-1.5) % Neut # (Auto) (1.5-6.3) x10-3/uL Lymph # (Auto) (1.0-4.4) x10-3/uL Dundy # (Auto) (0.3-1.0) x10-3/uL Eos # (Auto) (0.0-0.8) x10-3/uL Baso # (Auto) (0.0-0.1) x10-3/uL PT 24.0 H (9.0-11.1) sec INR 2.35 H (1.00-1.24) Troponin I 12.6 (4.0-60.3) pg/mL SARS-CoV-2 RNA ([facility]) Negative (NEGATIVE) 09/01/21 Range/Units 06:35 WBC 11.7 H (3.0-10.3) x10-3/uL RBC 3.46 L (3.60-5.20) x10(6)uL Hgb 10.3 L (11.4-15.5) g/dL Hct 31.5 L (34.2-48.2) % MCV 90.9 (76.7-100.5) fL MCH 29.9 (23.9-33.9) pg MCHC 32.9 (31.9-34.8) g/dL RDW 16.4 (12.3-16.5) % Plt Count 389 (151-488) x10(3)uL MPV 7.4 (7.1-12.4) fL Neut % (Auto) 75.0 (30.8-76.2) % Lymph % (Auto) 12.7 L (18.4-52.1) % Dundy % (Auto) 7.0 (4.4-15.7) % Eos % (Auto) 4.3 (0.6-8.1) % Baso % (Auto) 1.0 (0.2-1.5) % Neut # (Auto) 8.8 H (1.5-6.3) x10-3/uL Lymph # (Auto) 1.5 (1.0-4.4) x10-3/uL Dundy # (Auto) 0.8 (0.3-1.0) x10-3/uL Eos # (Auto) 0.5 (0.0-0.8) x10-3/uL Baso # (Auto) 0.1 (0.0-0.1) x10-3/uL PT (9.0-11.1) sec INR (1.00-1.24) Troponin I (4.0-60.3) pg/mL SARS-CoV-2 RNA ([facility]ORDO) (NEGATIVE) Result Diagrams: 09/01/21 06:35 12/05/21 14:30 Sepsis Event Note - Evaluation Sepsis Screening Result: No Definite Risk - Focused Exam Vital Signs: Vital Signs BP 09/01/21 08:33 146/62 H - Problem List & Annotations (1) Ambulatory dysfunction SNOMED Code(s): 740139942 Code(s): R26.2 - DIFFICULTY IN WALKING, NOT ELSEWHERE CLASSIFIED Status: Acute Current Visit: Yes (2) Debility SNOMED Code(s): 06165630 Code(s): R53.81 - OTHER MALAISE Status: Acute Current Visit: Yes (3) Recurrent falls SNOMED Code(s): 449189648 Code(s): R29.6 - REPEATED FALLS Status: Acute Current Visit: Yes (4) UTI (urinary tract infection) SNOMED Code(s): 27755608 Code(s): N39.0 - URINARY TRACT INFECTION, SITE NOT SPECIFIED Status: Acute Current Visit: Yes Qualifiers: Urinary tract infection type: acute cystitis (5) Back pain SNOMED Code(s): 897102446 Code(s): M54.9 - DORSALGIA, UNSPECIFIED Status: Acute Current Visit: No Qualifiers: Back pain location: low back pain (6) Cervical strain SNOMED Code(s): 820498621 Code(s): S16.1XXA - STRAIN OF MUSCLE, FASCIA AND TENDON AT NECK LEVEL, INIT Status: Acute Current Visit: No (7) Diabetes type 2, controlled SNOMED Code(s): 57883571, 601374943 Code(s): E11.9 - TYPE 2 DIABETES MELLITUS WITHOUT COMPLICATIONS Status: Chronic Current Visit: No Qualifiers: Diabetes mellitus fpc insulin use: without fpc use (8) Systolic essential hypertension SNOMED Code(s): 042419351 Code(s): I10 - ESSENTIAL (PRIMARY) HYPERTENSION Status: Chronic Current Visit: No (9) Pneumonia SNOMED Code(s): 032851544 Code(s): J18.9 - PNEUMONIA, UNSPECIFIED ORGANISM Status: Acute Current Visit: Yes - Problem List Review Problem List Initiated/Reviewed/Updated: Yes - My Orders Last 24 Hours: My Active Orders 08/31/21 08:36 Blood Culture x2 Reflex Set [OM.PC] Urgent 08/31/21 08:37 EKG 12 Lead [EK] Routine 08/31/21 08:50 CULTURE BLOOD [BC] Urgent 08/31/21 08:55 CULTURE BLOOD [BC] Urgent 08/31/21 09:53 Sodium Chloride 0.9% [Saline Flush] 10 ml FLUSH ASDIRECTED PRN Peripheral IV Insertion Adult [OM.PC] Routine 08/31/21 10:00 Sodium Chloride 0.9% [Normal Saline] 1,000 ml IV ASDIRECTED 09/01/21 09:00 lisinopriL [Prinivil] 10 mg PO DAILY 09/02/21 07:09 INR,PT,PROTHROMBIN TIME [COAG] DAILY 09/03/21 07:09 INR,PT,PROTHROMBIN TIME [COAG] DAILY - Plan Plan:: 1. DC IV fluids and DC IV. 2. Continue the Levaquin treatment for 7 days 3. Start lisinopril 10 mg a day because of the elevated blood pressure. 4. White count significantly dropped so it looks like she is doing better. 5. We will x-ray the pelvis just to make sure there is no fracture there since she is had falls and she has pain on the left lower buttocks.
[2021-09-01] MEDS: Lisinopril 10 MG Tab PO SCH (08:51)
--- NOTE | 2021-09-01 12:33 | CR ---
PELVIS TWO VIEWS INDICATION: Left pelvic pain. FINDINGS: Two frontal views of the pelvis were obtained 09/01/21 and compared with left hip dated 09/09/15. 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 The appearance is fairly compatible with the patient's age without evidence of an acute bone or joint abnormality at the hips. Hypertrophic degenerative changes are noted at the left sacroiliac joint. Hypertrophic degenerative changes are noted with narrowing of the disc space at L4-5 and possibly L5-S1. Calcifications are noted in femoral and iliac arteries as well as aorta. IMPRESSION: 1. 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 2. Mild degenerative changes at the left sacroiliac joint. 3. ASD. 4. 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 MTDD
[2021-09-01] MEDS: Warfarin 2.5 MG Tab PO SCH (15:24)
[2021-09-01] MEDS: Cholecalciferol (Vitamin D3) 25 MCG Tab PO SCH (21:27)
[2021-09-01] MEDS: Magnesium Oxide 400 MG Tab PO SCH (21:27)
[2021-09-01] MEDS: Cyanocobalamin (Vitamin B12) 1,000 MCG Tab PO SCH (21:27)
[2021-09-01] MEDS: LIDOCAINE PATCH TRDERM SCH (21:28)
[2021-09-02] MEDS: traMADol 50 MG Tab PO PRN (02:19)
[2021-09-02] MEDS: Levothyroxine 50 MCG Tab PO SCH (06:33)
[2021-09-02] MEDS: metFORMIN 1,000 MG Tab PO SCH ×2 (08:04→17:56)
[2021-09-02] MEDS: Losartan 50 MG Tab PO SCH (08:04)
[2021-09-02] MEDS: Lidocaine 4% 1 each Patch TOP SCH (08:05)
[2021-09-02] MEDS: Famotidine 20 MG Tab PO SCH (08:05)
[2021-09-02] MEDS: Pravastatin 20 MG Tab PO SCH (08:05)
[2021-09-02] MEDS: Lisinopril 10 MG Tab PO SCH (08:05)
[2021-09-02] MEDS: Levofloxacin 750 MG Tab PO SCH (08:05)
[2021-09-02] MEDS: Diltiazem 240 MG Cap.ER PO SCH (08:05)
[2021-09-02] MEDS: Acetaminophen 500 MG Tab PO SCH ×3 (08:05→21:02)
[2021-09-02] MEDS: Warfarin 2.5 MG Tab PO SCH (15:32)
[2021-09-02] MEDS: Magnesium Oxide 400 MG Tab PO SCH (21:01)
[2021-09-02] MEDS: LIDOCAINE PATCH TRDERM SCH (21:01)
[2021-09-02] MEDS: Cyanocobalamin (Vitamin B12) 1,000 MCG Tab PO SCH (21:01)
[2021-09-02] MEDS: Cholecalciferol (Vitamin D3) 25 MCG Tab PO SCH (21:01)
[2021-09-03] MEDS: Levothyroxine 50 MCG Tab PO SCH (05:55)
[2021-09-03] MEDS: Losartan 50 MG Tab PO SCH (08:36)
[2021-09-03] MEDS: Lidocaine 4% 1 each Patch TOP SCH (08:36)
[2021-09-03] MEDS: Famotidine 20 MG Tab PO SCH (08:36)
[2021-09-03] MEDS: metFORMIN 1,000 MG Tab PO SCH ×2 (08:36→18:03)
[2021-09-03] MEDS: Acetaminophen 500 MG Tab PO SCH ×3 (08:36→20:02)
[2021-09-03] MEDS: Diltiazem 240 MG Cap.ER PO SCH (08:36)
--- NOTE | 2021-09-03 09:49 | PCM.EKG ---
#1 Interpretation EKG Date: 09/02/21 EKG Interpretation Comments: His rhythm with atrial premature complex. Right ventricular hypertrophy. Nonspecific ST changes in the anterior lateral leads
--- NOTE | 2021-09-03 09:50 | PCM.EKG ---
#1 Interpretation EKG Date: 08/31/21 EKG Interpretation Comments: Rapid atrial fib with PVCs.
[2021-09-03] MEDS: Magnesium Oxide 400 MG Tab PO SCH (20:02)
[2021-09-03] MEDS: LIDOCAINE PATCH TRDERM SCH (20:03)
[2021-09-03] MEDS: Cholecalciferol (Vitamin D3) 25 MCG Tab PO SCH (20:04)
[2021-09-03] MEDS: Cyanocobalamin (Vitamin B12) 1,000 MCG Tab PO SCH (20:04)
[2021-09-04] MEDS: Levothyroxine 50 MCG Tab PO SCH (05:59)
[2021-09-04] MEDS: metFORMIN 1,000 MG Tab PO SCH ×2 (08:40→20:13)
[2021-09-04] MEDS: Lidocaine 4% 1 each Patch TOP SCH (08:42)
[2021-09-04] MEDS: Losartan 50 MG Tab PO SCH (08:43)
[2021-09-04] MEDS: Pravastatin 20 MG Tab PO SCH (08:44)
[2021-09-04] MEDS: Diltiazem 240 MG Cap.ER PO SCH (08:44)
[2021-09-04] MEDS: Acetaminophen 500 MG Tab PO SCH ×3 (08:44→20:13)
[2021-09-04] MEDS: Levofloxacin 750 MG Tab PO SCH (08:44)
[2021-09-04] MEDS: Famotidine 20 MG Tab PO SCH (08:44)
[2021-09-04] MEDS: Cholecalciferol (Vitamin D3) 25 MCG Tab PO SCH (20:12)
[2021-09-04] MEDS: Magnesium Oxide 400 MG Tab PO SCH (20:13)
[2021-09-04] MEDS: Cyanocobalamin (Vitamin B12) 1,000 MCG Tab PO SCH (20:14)
[2021-09-04] MEDS: LIDOCAINE PATCH TRDERM SCH (22:32)
[2021-09-05] MEDS: Levothyroxine 50 MCG Tab PO SCH (05:07)
[2021-09-05] MEDS: metFORMIN 1,000 MG Tab PO SCH ×2 (08:04→17:03)
[2021-09-05] MEDS: Losartan 50 MG Tab PO SCH (08:04)
[2021-09-05] MEDS: Famotidine 20 MG Tab PO SCH (08:04)
[2021-09-05] MEDS: Lidocaine 4% 1 each Patch TOP SCH (08:05)
[2021-09-05] MEDS: Acetaminophen 500 MG Tab PO SCH ×3 (08:05→20:33)
[2021-09-05] MEDS: Diltiazem 240 MG Cap.ER PO SCH (08:06)
[2021-09-05] MEDS: Magnesium Oxide 400 MG Tab PO SCH (20:33)
[2021-09-05] MEDS: Cyanocobalamin (Vitamin B12) 1,000 MCG Tab PO SCH (20:34)
[2021-09-05] MEDS: Cholecalciferol (Vitamin D3) 25 MCG Tab PO SCH (20:34)
[2021-09-05] MEDS: LIDOCAINE PATCH TRDERM SCH (20:34)
[2021-09-06] MEDS: Levothyroxine 100 MCG Tab PO SCH (05:22)
[2021-09-06] MEDS: metFORMIN 1,000 MG Tab PO SCH ×2 (07:52→17:07)
[2021-09-06] MEDS: Lidocaine 4% 1 each Patch TOP SCH (08:00)
[2021-09-06] MEDS: Losartan 50 MG Tab PO SCH (08:00)
[2021-09-06] MEDS: Famotidine 20 MG Tab PO SCH (08:01)
[2021-09-06] MEDS: Acetaminophen 500 MG Tab PO SCH ×3 (08:01→20:11)
[2021-09-06] MEDS: Diltiazem 240 MG Cap.ER PO SCH (08:06)
[2021-09-06] MEDS: Warfarin 2.5 MG Tab PO SCH (16:01)
[2021-09-06] MEDS: LIDOCAINE PATCH TRDERM SCH (20:11)
[2021-09-06] MEDS: Cholecalciferol (Vitamin D3) 25 MCG Tab PO SCH (20:12)
[2021-09-06] MEDS: Cyanocobalamin (Vitamin B12) 1,000 MCG Tab PO SCH (20:12)
[2021-09-06] MEDS ORDERED: Magnesium Oxide 400 MG Tab PO SCH (21:00)
[2021-09-07] MEDS: Levothyroxine 50 MCG Tab PO SCH (05:26)
[2021-09-07] MEDS: Losartan 50 MG Tab PO SCH (08:49)
[2021-09-07] MEDS: metFORMIN 1,000 MG Tab PO SCH ×2 (08:49→18:07)
[2021-09-07] MEDS: Lidocaine 4% 1 each Patch TOP SCH (08:49)
[2021-09-07] MEDS: Famotidine 20 MG Tab PO SCH (08:50)
[2021-09-07] MEDS: Diltiazem 240 MG Cap.ER PO SCH (08:50)
[2021-09-07] MEDS: Pravastatin 20 MG Tab PO SCH (08:50)
[2021-09-07] MEDS: Acetaminophen 500 MG Tab PO SCH ×3 (08:50→20:18)
[2021-09-07] MEDS ORDERED: Warfarin 2.5 MG Tab PO ONE (16:00)
[2021-09-07] MEDS: Magnesium Chloride 64 MG Tab.ER PO SCH (20:17)
[2021-09-07] MEDS: LIDOCAINE PATCH TRDERM SCH (20:17)
[2021-09-07] MEDS: Cholecalciferol (Vitamin D3) 25 MCG Tab PO SCH (20:18)
[2021-09-07] MEDS: Cyanocobalamin (Vitamin B12) 1,000 MCG Tab PO SCH (20:18)
[2021-09-08] MEDS: Levothyroxine 50 MCG Tab PO SCH (06:05)
[2021-09-08] MEDS: Acetaminophen 500 MG Tab PO SCH ×3 (09:26→20:00)
[2021-09-08] MEDS: Losartan 50 MG Tab PO SCH (09:26)
[2021-09-08] MEDS: metFORMIN 1,000 MG Tab PO SCH ×2 (09:27→17:53)
[2021-09-08] MEDS: Lidocaine 4% 1 each Patch TOP SCH (09:27)
[2021-09-08] MEDS: Famotidine 20 MG Tab PO SCH (09:27)
[2021-09-08] MEDS: Diltiazem 240 MG Cap.ER PO SCH (09:27)
--- NOTE | 2021-09-08 09:51 | PCM.PN ---
- General Info Date of Service: 09/08/21 Subjective Update: Lima has not had any loose stools today, last 2 days she had 3 in the am then nothing rest of day. Review of her medications, she was on higher dose of Magnesium than when discharged in February so Magnesium was decreased back to 64 mg at bedtime. No fevers, chills. Still having some confusion, didn't know who the therapists were that treated her yesterday and they had worked with her multiple times before. She reported to me and nurse this morning that she's not participating with therapy due to pain but therapy stated she has not complained of pain but that she just didn't want to do it. She is requiring lift for transfers so [facility] not able to take her, family is aware of this and applications sent to [facility]. - Patient Data Vitals - Most Recent: Last Vital Signs Temp 98 F 09/07/21 21:00 Pulse 91 09/07/21 21:00 Resp 18 09/07/21 21:00 BP 173/93 H 09/08/21 09:26 Pulse Ox 96 09/07/21 21:00 Weight - Most Recent: 178 lb 1 oz I&O - Last 24 Hours: Intake & Output 09/07/21 09/08/21 09/08/21 22:59 06:59 14:59 Intake Total 120 Balance 120 Lab Results Last 24 Hours: Laboratory Results - last 24 hr 09/07/21 09/08/21 09/08/21 Range/Units 16:30 05:59 08:30 PT 33.5 H (9.0-11.1) sec INR 3.36 H (1.00-1.24) POC Glucose 131 H 101 (80-116) mg/dL Med Orders - Current: Current Medications Acetaminophen (Acetaminophen 500 Mg Tab) 1,000 mg PO TID [facility] Last Admin: 09/08/21 09:26 Dose: 1,000 mg Documented by: Cholecalciferol (Cholecalciferol (Vitamin D3) 25 Mcg Tab) 125 mcg PO BEDTIME [facility] Last Admin: 09/07/21 20:18 Dose: 125 mcg Documented by: Cyanocobalamin (Cyanocobalamin (Vitamin B12) 1,000 Mcg Tab) 1,000 mcg PO BEDTIME [facility] Last Admin: 09/07/21 20:18 Dose: 1,000 mcg Documented by: Diltiazem HCl (Diltiazem 240 Mg Cap.Er) 240 mg PO DAILY [facility] Last Admin: 09/08/21 09:27 Dose: 240 mg Documented by: Famotidine (Famotidine 20 Mg Tab) 20 mg PO DAILY [facility] Last Admin: 09/08/21 09:27 Dose: 20 mg Documented by: Levothyroxine Sodium (Levothyroxine 50 Mcg Tab) 50 mcg PO MOTUWETHFRSA@0600 [facility] Last Admin: 09/08/21 06:05 Dose: 50 mcg Documented by: Levothyroxine Sodium (Levothyroxine 100 Mcg Tab) 100 mcg PO [place]@0600 [facility] Last Admin: 09/06/21 05:22 Dose: 100 mcg Documented by: Lidocaine (Lidocaine 4% 1 Each Patch) 1 each TOP DAILY [facility] Last Admin: 09/08/21 09:27 Dose: 1 each Documented by: Losartan Potassium (Losartan 50 Mg Tab) 50 mg PO DAILY [facility] Last Admin: 09/08/21 09:26 Dose: 50 mg Documented by: Magnesium Chloride (Magnesium Chloride 64 Mg Tab.Er) 64 mg PO BEDTIME [facility] Last Admin: 09/07/21 20:17 Dose: 64 mg Documented by: Metformin HCl (Metformin 1,000 Mg Tab) 1,000 mg PO BIDMEALS [facility] Last Admin: 09/08/21 09:27 Dose: 1,000 mg Documented by: Miscellaneous Information (Lidocaine Patch) 1 ea TRDERM BEDTIME [facility] Last Admin: 09/07/21 20:17 Dose: 1 ea Documented by: Ondansetron HCl (Ondansetron 4 Mg Tab.Dis) 4 mg PO Q6H PRN PRN Reason: Nausea/Vomiting Last Admin: 09/01/21 13:32 Dose: 4 mg Documented by: Polyethylene Glycol (Polyethylene Glycol 3350 Powder 17 Gm Packet) 17 gm PO DAILY PRN PRN Reason: CONSTIPATION Pravastatin Sodium (Pravastatin 20 Mg Tab) 20 mg PO MOWEFR@0900 [facility] Last Admin: 09/07/21 08:50 Dose: 20 mg Documented by: Sodium Chloride (Sodium Chloride 0.9% 10 Ml Syringe) 10 ml FLUSH ASDIRECTED PRN PRN Reason: Keep Vein Open Warfarin Sodium (Warfarin Sliding Scale) 1 each PO ASDIRECTED [facility] Discontinued Medications Acetaminophen (Acetaminophen 650 Mg Tab.Er) 650 mg PO Q4H PRN PRN Reason: Pain Denosumab (Denosumab 60 Mg/1 Ml Syringe) 60 mg SUBCUT Q180D [facility] Last Admin: 08/24/21 19:54 Dose: Not Given Documented by: Sodium Chloride (Normal Saline) 1,000 mls @ 125 mls/hr IV ASDIRECTED [facility] Last Admin: 08/31/21 17:35 Dose: 125 mls/hr Documented by: Levofloxacin (Levofloxacin 500 Mg Tab) 500 mg PO Q24H [facility] Last Admin: 08/30/21 23:48 Dose: Not Given Documented by: Levofloxacin (Levofloxacin 750 Mg Tab) 750 mg PO Q48H [facility] Last Admin: 08/31/21 01:19 Dose: 750 mg Documented by: Levofloxacin (Levofloxacin 750 Mg Tab) 750 mg PO Q48H [facility] Stop: 09/06/21 09:01 Last Admin: 09/04/21 08:44 Dose: 750 mg Documented by: Lisinopril (Lisinopril 10 Mg Tab) 10 mg PO DAILY [facility] Last Admin: 09/02/21 08:05 Dose: 10 mg Documented by: Magnesium Oxide (Magnesium Oxide 400 Mg Tab) 400 mg PO BEDTIME [facility] Last Admin: 09/05/21 20:33 Dose: 400 mg Documented by: Magnesium Oxide (Magnesium Oxide 400 Mg Tab) 200 mg PO BEDTIME [facility] Last Admin: 09/06/21 20:16 Dose: 200 mg Documented by: Nitrofurantoin Macrocrystals (Nitrofurantoin Monohydrate/Macrocrystalline 100 Mg Cap) 100 mg PO BID [facility] Last Admin: 08/30/21 21:10 Dose: 100 mg Documented by: Tramadol HCl (Tramadol 50 Mg Tab) 100 mg PO Q8H PRN PRN Reason: Pain Last Admin: 09/02/21 02:19 Dose: 100 mg Documented by: Triamcinolone Acetonide (Triamcinolone Acetonide 0.1% Crm 15 Gm Tube) gm TOP BID [facility] Warfarin Sodium (Warfarin 2.5 Mg Tab) 2.5 mg PO ONETIME ONE Stop: 08/24/21 16:01 Last Admin: 08/24/21 17:05 Dose: 2.5 mg Documented by: Warfarin Sodium (Warfarin 2.5 Mg Tab) 2.5 mg PO ONETIME ONE Stop: 08/25/21 16:01 Last Admin: 08/25/21 17:15 Dose: 2.5 mg Documented by: Warfarin Sodium (Warfarin 2.5 Mg Tab) 2.5 mg PO DAILY@1600 [facility] Last Admin: 08/30/21 16:50 Dose: 2.5 mg Documented by: Warfarin Sodium (Warfarin 2.5 Mg Tab) 1.25 mg PO ONETIME ONE Stop: 08/31/21 16:01 Last Admin: 08/31/21 16:37 Dose: 1.25 mg Documented by: Warfarin Sodium (Warfarin 2.5 Mg Tab) 2.5 mg PO DAILY@1600 [facility] Last Admin: 09/06/21 16:01 Dose: 2.5 mg Documented by: Warfarin Sodium (Warfarin 2.5 Mg Tab) 1.25 mg PO ONETIME ONE Stop: 09/07/21 16:01 Last Admin: 09/07/21 16:33 Dose: 1.25 mg Documented by: - Exam General: Alert, Oriented (person), Cooperative, No Acute Distress Lungs: Clear to Auscultation, Normal Respiratory Effort, Decreased Breath Sounds (bibasilar). No: Crackles, Wheezing Cardiovascular: Regular Rate, Irregular Rhythm GI/Abdominal Exam: Normal Bowel Sounds, Soft, Non-Tender, No Distention Extremities: Pedal Edema (trace BLE) Peripheral Pulses: 2+: Radial (L), Radial (R) - Patient Data Lab Results Last 24 hrs: Laboratory Results - last 24 hr 09/07/21 09/08/21 09/08/21 Range/Units 16:30 05:59 08:30 PT 33.5 H (9.0-11.1) sec INR 3.36 H (1.00-1.24) POC Glucose 131 H 101 (80-116) mg/dL Result Diagrams: 09/01/21 06:35 08/30/21 14:30 Sepsis Event Note - Evaluation Sepsis Screening Result: No Definite Risk - Focused Exam Vital Signs: Vital Signs BP 09/08/21 09:26 173/93 H - Problem List & Annotations (1) Ambulatory dysfunction SNOMED Code(s): 351471087 Code(s): R26.2 - DIFFICULTY IN WALKING, NOT ELSEWHERE CLASSIFIED Status: Acute Current Visit: Yes (2) Cognitive deficits SNOMED Code(s): 265182707 Code(s): R41.89 - OTH SYMPTOMS AND SIGNS W COGNITIVE FUNCTIONS AND AWARENESS Status: Acute Current Visit: Yes (3) Recurrent falls SNOMED Code(s): 501169841 Code(s): R29.6 - REPEATED FALLS Status: Chronic Current Visit: Yes (4) UTI (urinary tract infection) SNOMED Code(s): 51898478 Code(s): N39.0 - URINARY TRACT INFECTION, SITE NOT SPECIFIED Status: Resolved Current Visit: Yes Qualifiers: Urinary tract infection type: acute cystitis (5) Low back pain SNOMED Code(s): 028987664 Code(s): M54.50 - LOW BACK PAIN, UNSPECIFIED Status: Acute Current Visit: No Qualifiers: Chronicity: acute (6) Weakness SNOMED Code(s): 97471606 Code(s): R53.1 - WEAKNESS Status: Acute Current Visit: No (7) A-fib SNOMED Code(s): 88181767 Code(s): I48.91 - UNSPECIFIED ATRIAL FIBRILLATION Status: Chronic Priority: High Current Visit: No Qualifiers: Atrial fibrillation type: paroxysmal Qualified Code(s): I48.0 - Paroxysmal atrial fibrillation (8) Anticoagulant long-term use SNOMED Code(s): 995624133 Code(s): Z79.01 - SKILLED NURSING (CURRENT) USE OF ANTICOAGULANTS Status: Chronic Current Visit: No (9) Diabetes type 2, controlled SNOMED Code(s): 06655365, 925921574 Code(s): E11.9 - TYPE 2 DIABETES MELLITUS WITHOUT COMPLICATIONS Status: Chronic Current Visit: No Qualifiers: Diabetes mellitus fdc insulin use: without fdc use (10) Hypothyroidism SNOMED Code(s): 02079131 Code(s): E03.9 - HYPOTHYROIDISM, UNSPECIFIED Status: Chronic Current Visit: No Qualifiers: Hypothyroidism type: acquired Qualified Code(s): E03.9 - Hypothyroidism, unspecified (11) Systolic essential hypertension SNOMED Code(s): 412881477 Code(s): I10 - ESSENTIAL (PRIMARY) HYPERTENSION Status: Chronic Current Visit: No (12) Diarrhea SNOMED Code(s): 88896522 Code(s): R19.7 - DIARRHEA, UNSPECIFIED Status: Resolved Current Visit: Yes - Problem List Review Problem List Initiated/Reviewed/Updated: Yes - My Orders Last 24 Hours: My Active Orders 09/07/21 10:53 Glucose [Blood Glucose Check, Bedside] [RC] 06,17 09/07/21 21:00 Magnesium Chloride [Mag-64] 64 mg PO BEDTIME 09/08/21 09:27 Consult to Speech Language Pathology [FIRST PRESS OPERATOR Evaluation and Treatment] [CONS] Routine 09/10/21 08:01 INR,PT,PROTHROMBIN TIME [COAG] Q48H 09/12/21 08:01 INR,PT,PROTHROMBIN TIME [COAG] Q48H 09/14/21 08:01 INR,PT,PROTHROMBIN TIME [COAG] Q48H - Plan Plan:: 1. UTI resolved, completed Levofloxacin. 2. Afib: coumadin per pharmacy. 3. Diarrhea resolved with magnesium changed to 64 mg at hs from 400 mg bedtime. 4. Cognitive deficits: staff noted that her confusion has not improved with treatment of UTI, consult speech therapy for cognitive screen. 5. Weakness/recurrent falls: requiring lift for transfers, unable to go back to [facility], family looking at [facility].
[2021-09-08] MEDS: Cyanocobalamin (Vitamin B12) 1,000 MCG Tab PO SCH (19:59)
[2021-09-08] MEDS: Cholecalciferol (Vitamin D3) 25 MCG Tab PO SCH (19:59)
[2021-09-08] MEDS: Magnesium Chloride 64 MG Tab.ER PO SCH (20:00)
[2021-09-08] MEDS: LIDOCAINE PATCH TRDERM SCH (20:03)
[2021-09-09] MEDS: Levothyroxine 50 MCG Tab PO SCH (06:10)
[2021-09-09] MEDS: metFORMIN 1,000 MG Tab PO SCH ×2 (08:31→17:51)
[2021-09-09] MEDS: Lidocaine 4% 1 each Patch TOP SCH (08:32)
[2021-09-09] MEDS: Losartan 50 MG Tab PO SCH (08:33)
[2021-09-09] MEDS: Diltiazem 240 MG Cap.ER PO SCH (08:33)
[2021-09-09] MEDS: Acetaminophen 500 MG Tab PO SCH ×3 (08:34→20:01)
[2021-09-09] MEDS: Famotidine 20 MG Tab PO SCH (08:34)
[2021-09-09] MEDS: Pravastatin 20 MG Tab PO SCH (08:34)
[2021-09-09] MEDS ORDERED: Warfarin 2.5 MG Tab PO ONE (16:00)
[2021-09-09] MEDS: Cholecalciferol (Vitamin D3) 25 MCG Tab PO SCH (20:01)
[2021-09-09] MEDS: Magnesium Chloride 64 MG Tab.ER PO SCH (20:01)
[2021-09-09] MEDS: Cyanocobalamin (Vitamin B12) 1,000 MCG Tab PO SCH (20:02)
[2021-09-09] MEDS: LIDOCAINE PATCH TRDERM SCH (20:02)
[2021-09-10] MEDS: Levothyroxine 50 MCG Tab PO SCH (05:25)
[2021-09-10] MEDS: metFORMIN 1,000 MG Tab PO SCH (07:49)
[2021-09-10] MEDS: Acetaminophen 500 MG Tab PO SCH (07:58)
[2021-09-10] MEDS: Diltiazem 240 MG Cap.ER PO SCH (07:59)
[2021-09-10] MEDS: Losartan 50 MG Tab PO SCH (08:00)
[2021-09-10] MEDS: Famotidine 20 MG Tab PO SCH (08:00)
[2021-09-10 08:03] VITALS: BP 150/71
[2021-09-10] MEDS: Lidocaine 4% 1 each Patch TOP SCH (08:03)
[2021-09-10 09:30] VITALS: PULSE 100
--- NOTE | 2021-09-10 13:19 | PCM.DCSUM1 ---
Discharge Summary - Hospital Course HPI Initial Comments: This is an 85-year-old female admitted through acute care, for rehabilitation to [facility]. She presented to the medical floor a few days ago with the recurrent falls, back pain, constipation and a urinary tract infection. She is deemed too weak to return to community based living, and [facility]. She had fallen at least twice at home but had negative imaging studies in the emergency room at [facility]. While at the hospital admission, she had constipation is relieved by MiraLAX, and pain in the back was controlled by Tylenol, when necessary tramadol. She has a history of atrial fibrillation, and hypertension currently stable. - Discharge Data Discharge Date: 09/10/21 ([facility]) Discharge Disposition: DC/Tfer to [facility] Condition: Good - Referral to Home Health Date of Face to Face Encounter: 09/10/21 Reason for Homebound Status: limited mobility Primary Care Physician: Freddie Adler MD Skilled Need: FPC, PT, OT-Cogition - Discharge Diagnosis/Problem(s) (1) Ambulatory dysfunction SNOMED Code(s): 126430894 ICD Code: R26.2 - DIFFICULTY IN WALKING, NOT ELSEWHERE CLASSIFIED Status: Acute (2) Cognitive deficits SNOMED Code(s): 737340342 ICD Code: R41.89 - [facility] SYMPTOMS AND SIGNS W COGNITIVE FUNCTIONS AND AWARENESS Status: Acute (3) Recurrent falls SNOMED Code(s): 806840006 ICD Code: R29.6 - REPEATED FALLS Status: Chronic (4) Low back pain SNOMED Code(s): 401952086 ICD Code: M54.50 - LOW BACK PAIN, UNSPECIFIED Status: Acute Problem Details: improved Qualifiers: Chronicity: acute (5) Weakness SNOMED Code(s): 18924319 ICD Code: R53.1 - WEAKNESS Status: Acute (6) A-fib SNOMED Code(s): 07388045 ICD Code: I48.91 - UNSPECIFIED ATRIAL FIBRILLATION Status: Chronic Priority: High Qualifiers: Atrial fibrillation type: paroxysmal Qualified Code(s): I48.0 - Paroxysmal atrial fibrillation (7) Anticoagulant long-term use SNOMED Code(s): 524680575 ICD Code: Z79.01 - FPC (CURRENT) USE OF ANTICOAGULANTS Status: Chronic Problem Details: INR 2.78 (8) Diabetes type 2, controlled SNOMED Code(s): 90334862, 166305866 ICD Code: E11.9 - TYPE 2 DIABETES MELLITUS WITHOUT COMPLICATIONS Status: Chronic Qualifiers: Diabetes mellitus half-way insulin use: without half-way use (9) Hypothyroidism SNOMED Code(s): 17604276 ICD Code: E03.9 - HYPOTHYROIDISM, UNSPECIFIED Status: Chronic Qualifiers: Hypothyroidism type: acquired Qualified Code(s): E03.9 - Hypothyroidism, unspecified (10) Systolic essential hypertension SNOMED Code(s): 092558640 ICD Code: I10 - ESSENTIAL (PRIMARY) HYPERTENSION Status: Chronic (11) Diarrhea SNOMED Code(s): 91074830 ICD Code: R19.7 - DIARRHEA, UNSPECIFIED Status: Resolved (12) UTI (urinary tract infection) SNOMED Code(s): 26617278 ICD Code: N39.0 - URINARY TRACT INFECTION, SITE NOT SPECIFIED Status: Resolved Qualifiers: Urinary tract infection type: acute cystitis - Patient Summary/Data Consults: Consultations 08/24/21 09:48 OT Evaluation and Treatment [CONS] Routine Please Evaluate and Treat. OT Reason for Consult: ADL's This query below is only for informational purposes and is not editable. PT Evaluation and Treatment [CONS] Routine Please Evaluate and Treat. PT Reason for Consult: Ambulation This query below is only for informational purposes and is not editable. 08/31/21 07:21 Consult to [employer] [CONS] Routine Comment: Physician Instructions: Quantity: Hospital Course: Transitioned to swing bed from acute care for strengthening. She was progressing but then on 08/30 in evening was having acute weakness, dysuria. Dr Mcdonnell checked WBC and was 22.7, CXR was negative for acute findings. Urine was abnormal though didn't reflex for culture and culture was not ordered. She was started on Levofloxacin [address] Mcdonnell, next day her WBC was 22.2 and 09/01 was 11.7. Her chemistry was normal on 08/30. Her INR were well controlled until 09/03 4.22, 09/04 4.93 09/05 4.64 but then was within goal on 09/05 2.83, but up slightly on 09/08 3.36, most likely secondary to Levofloxacin. She completed her antibiotic course. She did have fall out of lift chair trying to get up without assistance on 09/04, no injuries. She had some diarrhea that was only in the mornings on 09/06 & 09/07, stool culture had been ordered on 09/06 so far is negative. Review of her records, her Magnesium dose had been increased to 400 mg at bedtime and prior to admission was 64 mg at bedtime. Decreased Magnesium to 64 mg at bedtime and stools improved. No diarrhea today. She has been having good and bad days with therapy some days can ambulate with 1 person assist and other days requiring a lift, no consistent improvement enough to go back to [facility] so family put in application to [facility], they have accepted her for admission today. - Patient Instructions Diet: Diabetic Diet Activity: As Tolerated Driving: Do Not Drive Showering/Bathing: May Shower Notify Provider of: Fever, Increased Pain, Nausea and/or Vomiting Other/Special Instructions: INR on 09/14, Coumadin 1.25 mg daily. Follow up with Dr Adler in 1 week to recheck urine, chemistry. - Discharge Plan *PRESCRIPTION DRUG MONITORING PROGRAM REVIEWED*: Not Applicable *COPY OF PRESCRIPTION DRUG MONITORING REPORT IN PATIENT ARABELLA: Not Applicable Prescriptions/Med Rec: Warfarin [Coumadin] 1.25 mg PO DAILY #15 tab Home Medications: Home Meds Levothyroxine [Synthroid] 50 mcg PO MOTUWETHFRSA@0600 09/09/15 [History] metFORMIN [Glucophage] 1,000 mg PO BIDMEALS 09/09/15 [History] Diltiazem [Cardizem CD] 240 mg PO DAILY #30 cap.cd 10/02/15 [Rx] Cholecalciferol (Vitamin D3) [Vitamin D3] 125 mcg PO BEDTIME 02/20/21 [History] Cyanocobalamin (Vitamin B-12) [B-12] 1,000 mcg PO BEDTIME 02/20/21 [History] Denosumab [Prolia] 60 mg SUBCUT Q180D 02/20/21 [History] Famotidine 20 mg PO DAILY 02/20/21 [History] Levothyroxine [Synthroid] 100 mcg PO MONROE@0600 02/20/21 [History] Pravastatin Sodium 20 mg PO MOWEFR@0900 02/20/21 [History] Losartan [Cozaar] 50 mg PO DAILY 08/19/21 [History] Acetaminophen [Tylenol Extra Strength] 1,000 mg PO TID #0 tablet 09/10/21 [Rx] Lidocaine 4% [Aspercreme 4%] 1 each TOP DAILY patch 09/10/21 [Rx] Magnesium Chloride [Mag-64] 64 mg PO BEDTIME tab.er 09/10/21 [Rx] Remove Patch 1 ea TRDERM BEDTIME each 09/10/21 [Rx] Warfarin [Coumadin] 1.25 mg PO DAILY #15 tab 09/10/21 [Rx] Oxygen Therapy Mode: Room Air Patient Handouts: Fall Prevention in Hospitals, Adult, Weakness, Venous Thromboembolism Prevention - Discharge Summary/Plan Comment DC Time >30 min.: Yes Total # of Minutes for Discharge Time: 30 min - General Info Date of Service: 09/10/21 Subjective Update: She states she is feeling good, no diarrhea this morning. No back pain. No abdominal pain. Didn't sleep well, anxious about going to [facility] today. Covid test this am was negative. No fevers, chills. Has not been using Tramadol for pain only scheduled Tylenol. Functional Status: Reports: Pain Controlled, Tolerating Diet, Urinating, New Symptoms - Patient Data Vitals - Most Recent: Last Vital Signs Temp 97.9 F 09/10/21 09:00 Pulse 100 09/10/21 09:00 Resp 18 09/10/21 09:00 BP 150/71 H 09/10/21 09:00 Pulse Ox 95 09/10/21 09:00 Weight - Most Recent: 178 lb 1 oz I&O - Last 24 hours: Intake & Output 09/09/21 09/10/21 09/10/21 22:59 06:59 14:59 Intake Total 240 Balance 240 Lab Results - Last 24 hrs: Laboratory Results - last 24 hr 09/09/21 09/10/21 09/10/21 Range/Units 17:03 05:35 06:22 PT 28.1 H (9.0-11.1) sec INR 2.78 H (1.00-1.24) POC Glucose 169 H (80-116) mg/dL SARS-CoV-2 RNA (GORDO) Negative (NEGATIVE) KARO Results - Last 24 hrs: Microbiology 09/07/21 08:00 Salmonella/Shigella Screen - Final Stool / Feces Escherichia coli Shiga Toxins EIA - Preliminary Med Orders - Current: Current Medications Discontinued Medications Acetaminophen (Acetaminophen 650 Mg Tab.Er) 650 mg PO Q4H PRN PRN Reason: Pain Acetaminophen (Acetaminophen 500 Mg Tab) 1,000 mg PO TID [facility] Last Admin: 09/10/21 07:58 Dose: 1,000 mg Documented by: Cholecalciferol (Cholecalciferol (Vitamin D3) 25 Mcg Tab) 125 mcg PO BEDTIME [facility] Last Admin: 09/09/21 20:01 Dose: 125 mcg Documented by: Cyanocobalamin (Cyanocobalamin (Vitamin B12) 1,000 Mcg Tab) 1,000 mcg PO BEDTIME [facility] Last Admin: 09/09/21 20:02 Dose: 1,000 mcg Documented by: Denosumab (Denosumab 60 Mg/1 Ml Syringe) 60 mg SUBCUT Q180D [facility] Last Admin: 08/24/21 19:54 Dose: Not Given Documented by: Diltiazem HCl (Diltiazem 240 Mg Cap.Er) 240 mg PO DAILY [facility] Last Admin: 09/10/21 07:59 Dose: 240 mg Documented by: Famotidine (Famotidine 20 Mg Tab) 20 mg PO DAILY [facility] Last Admin: 09/10/21 08:00 Dose: 20 mg Documented by: Sodium Chloride (Normal Saline) 1,000 mls @ 125 mls/hr IV ASDIRECTED [facility] Last Admin: 08/31/21 17:35 Dose: 125 mls/hr Documented by: Levofloxacin (Levofloxacin 500 Mg Tab) 500 mg PO Q24H [facility] Last Admin: 08/30/21 23:48 Dose: Not Given Documented by: Levofloxacin (Levofloxacin 750 Mg Tab) 750 mg PO Q48H [facility] Last Admin: 08/31/21 01:19 Dose: 750 mg Documented by: Levofloxacin (Levofloxacin 750 Mg Tab) 750 mg PO Q48H [facility] Stop: 09/06/21 09:01 Last Admin: 09/04/21 08:44 Dose: 750 mg Documented by: Levothyroxine Sodium (Levothyroxine 50 Mcg Tab) 50 mcg PO MOTUWETHFRSA@0600 [facility] Last Admin: 09/10/21 05:25 Dose: 50 mcg Documented by: Levothyroxine Sodium (Levothyroxine 100 Mcg Tab) 100 mcg PO MONROE@0600 [facility] Last Admin: 09/06/21 05:22 Dose: 100 mcg Documented by: Lidocaine (Lidocaine 4% 1 Each Patch) 1 each TOP DAILY [facility] Last Admin: 09/10/21 08:03 Dose: 1 each Documented by: Lisinopril (Lisinopril 10 Mg Tab) 10 mg PO DAILY [facility] Last Admin: 09/02/21 08:05 Dose: 10 mg Documented by: Losartan Potassium (Losartan 50 Mg Tab) 50 mg PO DAILY [facility] Last Admin: 09/10/21 08:00 Dose: 50 mg Documented by: Magnesium Chloride (Magnesium Chloride 64 Mg Tab.Er) 64 mg PO BEDTIME [facility] Last Admin: 09/09/21 20:01 Dose: 64 mg Documented by: Magnesium Oxide (Magnesium Oxide 400 Mg Tab) 400 mg PO BEDTIME [facility] Last Admin: 09/05/21 20:33 Dose: 400 mg Documented by: Magnesium Oxide (Magnesium Oxide 400 Mg Tab) 200 mg PO BEDTIME [facility] Last Admin: 09/06/21 20:16 Dose: 200 mg Documented by: Metformin HCl (Metformin 1,000 Mg Tab) 1,000 mg PO BIDMEALS [facility] Last Admin: 09/10/21 07:49 Dose: 1,000 mg Documented by: Miscellaneous Information (Lidocaine Patch) 1 ea TRDERM BEDTIME [facility] Last Admin: 09/09/21 20:02 Dose: 1 ea Documented by: Nitrofurantoin Macrocrystals (Nitrofurantoin Monohydrate/Macrocrystalline 100 Mg Cap) 100 mg PO BID [facility] Last Admin: 08/30/21 21:10 Dose: 100 mg Documented by: Ondansetron HCl (Ondansetron 4 Mg Tab.Dis) 4 mg PO Q6H PRN PRN Reason: Nausea/Vomiting Last Admin: 09/01/21 13:32 Dose: 4 mg Documented by: Polyethylene Glycol (Polyethylene Glycol 3350 Powder 17 Gm Packet) 17 gm PO DAILY PRN PRN Reason: CONSTIPATION Pravastatin Sodium (Pravastatin 20 Mg Tab) 20 mg PO MOWEFR@0900 [facility] Last Admin: 09/09/21 08:34 Dose: 20 mg Documented by: Sodium Chloride (Sodium Chloride 0.9% 10 Ml Syringe) 10 ml FLUSH ASDIRECTED PRN PRN Reason: Keep Vein Open Tramadol HCl (Tramadol 50 Mg Tab) 100 mg PO Q8H PRN PRN Reason: Pain Last Admin: 09/02/21 02:19 Dose: 100 mg Documented by: Triamcinolone Acetonide (Triamcinolone Acetonide 0.1% Crm 15 Gm Tube) gm TOP BID [facility] Warfarin Sodium (Warfarin Sliding Scale) 1 each PO ASDIRECTED [facility] Warfarin Sodium (Warfarin 2.5 Mg Tab) 2.5 mg PO ONETIME ONE Stop: 08/24/21 16:01 Last Admin: 08/24/21 17:05 Dose: 2.5 mg Documented by: Warfarin Sodium (Warfarin 2.5 Mg Tab) 2.5 mg PO ONETIME ONE Stop: 08/25/21 16:01 Last Admin: 08/25/21 17:15 Dose: 2.5 mg Documented by: Warfarin Sodium (Warfarin 2.5 Mg Tab) 2.5 mg PO DAILY@1600 [facility] Last Admin: 08/30/21 16:50 Dose: 2.5 mg Documented by: Warfarin Sodium (Warfarin 2.5 Mg Tab) 1.25 mg PO ONETIME ONE Stop: 08/31/21 16:01 Last Admin: 08/31/21 16:37 Dose: 1.25 mg Documented by: Warfarin Sodium (Warfarin 2.5 Mg Tab) 2.5 mg PO DAILY@1600 [facility] Last Admin: 09/06/21 16:01 Dose: 2.5 mg Documented by: Warfarin Sodium (Warfarin 2.5 Mg Tab) 1.25 mg PO ONETIME ONE Stop: 09/07/21 16:01 Last Admin: 09/07/21 16:33 Dose: 1.25 mg Documented by: Warfarin Sodium (Warfarin 2.5 Mg Tab) 1.25 mg PO ONETIME ONE Stop: 09/09/21 16:01 Last Admin: 09/09/21 15:12 Dose: 1.25 mg Documented by: - Exam General: Reports: Alert, Oriented, Cooperative, No Acute Distress Lungs: Reports: Clear to Auscultation, Normal Respiratory Effort, Decreased Breath Sounds (bibasilar) Cardiovascular: Reports: Regular Rate, Irregular Rhythm GI/Abdominal Exam: Normal Bowel Sounds, Soft, Non-Tender, No Distention Extremities: Normal Capillary Refill, Pedal Edema (trace in ankles) Skin: Reports: Warm, Dry, Intact Neurological: Reports: No New Focal Deficit
== END 2021-09-10 10:35 | DRG 948 ==
LOC: FB.MS 09:20
PROVIDERS: ADMIT Family Medicine; ATTEND Family Medicine
DX: R53.81 Other malaise (principal); N30.00 Acute cystitis without hematuria; I48.0 Paroxysmal atrial fibrillation; E03.9 Hypothyroidism, unspecified; R26.2 Difficulty in walking, not elsewhere classified; I10 Essential (primary) hypertension; Z20.822 Contact with and (suspected) exposure to COVID-19; K21.9 Gastro-esophageal reflux disease without esophagitis; M54.2 Cervicalgia; G89.29 Other chronic pain; R29.6 Repeated falls; E83.42 Hypomagnesemia; Z96.651 Presence of right artificial knee joint; M54.50 Low back pain, unspecified; K59.00 Constipation, unspecified; Z66 Do not resuscitate; R19.7 Diarrhea, unspecified; G31.84 Mild cognitive impairment of uncertain or unknown etiology; Z79.01 Long term (current) use of anticoagulants; Z91.041 Radiographic dye allergy status; Z88.2 Allergy status to sulfonamides; Z79.890 Hormone replacement therapy; Z79.899 Other long term (current) drug therapy; Z86.73 Personal history of transient ischemic attack (TIA), and cerebral infarction without residual deficits; Z90.49 Acquired absence of other specified parts of digestive tract
CPT/HCPCS: 36415; 71045; 72170; 80048; 81001; 82947; 84484; 85025; 85610; 87040; 87045; 87046; 87427; 93005; 97110-GO; 97110-GP; 97116-GP; 97530-GO; 97530-GP; 97535-GO; A9270-GY; J7030; U0002

== ENCOUNTER 2022-09-26 13:20 | Emergency (ER) | payer MEDICARE, BC ==
[2022-09-26 15:04] LABS: ESTIMATED GFR 49 mL/min (>60)
[2022-09-26 16:51] VITALS: BP 189/99; PULSE 78
== END 2022-09-26 18:08 ==
LOC: FB.ED 13:20
DX: S12.000D Unspecified displaced fracture of first cervical vertebra, subsequent encounter for fracture with routine healing (principal); E11.9 Type 2 diabetes mellitus without complications; E66.01 Morbid (severe) obesity due to excess calories; R13.10 Dysphagia, unspecified; R53.81 Other malaise; R26.2 Difficulty in walking, not elsewhere classified; I48.91 Unspecified atrial fibrillation; I10 Essential (primary) hypertension; K21.9 Gastro-esophageal reflux disease without esophagitis; Z86.73 Personal history of transient ischemic attack (TIA), and cerebral infarction without residual deficits; Z91.041 Radiographic dye allergy status; Z88.2 Allergy status to sulfonamides; Z79.899 Other long term (current) drug therapy; Z79.01 Long term (current) use of anticoagulants; Z68.30 Body mass index [BMI] 30.0-30.9, adult; W45.8XXA Other foreign body or object entering through skin, initial encounter
CPT/HCPCS: 36415; 71045; 80053; 85025; 99285

== ENCOUNTER 2024-10-09 01:08 | Emergency (ER) | payer MEDICARE, BC ==
[2024-10-09] MEDS: Sodium Chloride 0.9% 1,000 ML IV ONE (01:25)
[2024-10-09] MEDS: Acetaminophen 650 MG Supp RECTAL ONE (01:32)
[2024-10-09 01:52] LABS: BLOOD UREA NITROGEN,BUN 22 mg/dL (7-18); BUN/CREATININE RATIO 16.9 (9-20); CALCIUM 9.7 mg/dL (8.6-10.2); CARBON DIOXIDE,CO2 24 mmol/L (21-32); CHLORIDE,CL 104 mmol/L (100-110); CREATININE 1.3 mg/dL (0.55-1.02); EST CRCL DRUG DOSING (CG) 26.92 mL/min; ESTIMATED GFR 40 mL/min (>60); GLUCOSE RANDOM 296 mg/dL (80-116); POTASSIUM,K 4.3 mmol/L (3.5-5.3); SODIUM,NA 142 mmol/L (135-145)
[2024-10-09 01:54] LABS: HEMATOCRIT 44.5 % (34.2-48.2); MEAN CORPUSCULAR HEMOGLOBIN 33.1 pg (23.9-33.9); MEAN CORPUSCULAR HGB CONC 33.7 g/dL (31.9-34.8); MEAN CORPUSCULAR VOLUME 98.2 fL (76.7-100.5); MEAN PLATELET VOLUME 8.3 fL (7.1-12.4); PLATELET COUNT,PLT 261 x10(3)uL (151-488); RED BLOOD CELL COUNT 4.53 x10(6)uL (3.60-5.20); RED CELL DISTRIBUTION WIDTH 14.9 % (12.3-16.5); WHITE BLOOD CELL COUNT,WBC 23.2 x10-3/uL (3.0-10.3)
[2024-10-09 01:58] LABS: A/G RATIO 0.9; ALANINE AMINOTRANSFERASE,ALT 17 U/L (12-36); ALBUMIN 3.4 g/dL (3.2-4.6); ALKALINE PHOSPHATASE 103 IU/L (56-112); ASPARTATE AMNIOTRANSFERASE,AST 12 IU/L (5-25); BILIRUBIN TOTAL 0.8 mg/dL (0.1-1.3); PROTEIN TOTAL,TP 7.1 g/dL (6.0-8.0)
[2024-10-09 02:01] LABS: LACTIC ACID 1.8 mmol/L (0.4-2.0)
[2024-10-09 02:02] LABS: BILIRUBIN,URINE NEGATIVE (NEGATIVE); GLUCOSE,URINE >1000 mg/dL (NORMAL); KETONES,URINE 15 mg/dL (NEGATIVE); LEUKOCYTE ESTERASE,URINE MODERATE (NEGATIVE); NITRITE,URINE NEGATIVE (NEGATIVE); OCCULT BLOOD,URINE LARGE (NEGATIVE); PROTEIN,URINE NEGATIVE (NEGATIVE); UROBILINOGEN,URINE NORMAL (NEGATIVE)
[2024-10-09 02:03] LABS: APPEARANCE,URINE CLOUDY (CLEAR); COLOR,URINE YELLOW (YELLOW)
[2024-10-09 02:04] LABS: C-REACTIVE PROTEIN 1.4 mg/dL (<0.50)
[2024-10-09] MEDS: Ondansetron 4 MG/2 ML SDV IVPUSH ONE (02:04)
[2024-10-09] MEDS: cefTRIAXone 1 GM Vial IVPUSH ONE (02:05)
[2024-10-09] MEDS: Sodium Chloride 0.9% 10 ML Syringe FLUSH PRN (02:07)
[2024-10-09 02:10] LABS: BACTERIA,URINE MODERATE (NS); RBC,URINE 40-50 (0-5); SQUAMOUS EPITHELIAL CELLS,UR FEW (NS,R,O); WBC,URINE 50-75 (0-5)
[2024-10-09 02:13] LABS: BAND PERCENT MAN 1 % (0-6); BASOPHILS PERCENT MAN 1 % (0-2); LYMPHOCYTES PERCENT MAN 7 % (13-37); MONOCYTES PERCENT MAN 2 % (4-12); SEG NEUTROPHILS PERCENT MAN 89 % (46-82)
[2024-10-09] MEDS: Sodium Chloride 0.9% 1,000 ML IV SCH (02:25)
[2024-10-09 02:27] LABS: INFLUENZA A NAA NEGATIVE (NEGATIVE); INFLUENZA B NAA NEGATIVE (NEGATIVE); RESPIRATORY SYNCYTIAL VIR NAA NEGATIVE (NEGATIVE)
[2024-10-09 02:29] LABS: CORONAVIRUS COVID-19 NAA NEGATIVE (NEGATIVE)
[2024-10-09 03:35] VITALS: BP 104/59; PULSE 107
== END 2024-10-09 04:00 | disposition critical access hospital (66) ==
LOC: FB.ED 01:08
DX: J18.9 Pneumonia, unspecified organism (principal); N30.01 Acute cystitis with hematuria; I48.91 Unspecified atrial fibrillation; I10 Essential (primary) hypertension; E11.9 Type 2 diabetes mellitus without complications; E03.9 Hypothyroidism, unspecified; Z91.041 Radiographic dye allergy status; Z88.2 Allergy status to sulfonamides; Z79.890 Hormone replacement therapy; Z79.84 Long term (current) use of oral hypoglycemic drugs; Z79.01 Long term (current) use of anticoagulants; Z90.49 Acquired absence of other specified parts of digestive tract
CPT/HCPCS: 0241U; 36415; 71045; 80053; 81001; 83605; 83880; 85025; 86140; 87040; 87086; 87088; 87186; 93005; 96361; 96374; 96375; 99285-25; A9270-GY; J0696; J2405; J7030

== ENCOUNTER 2024-10-13 13:59 | Emergency (ER) | payer MEDICARE, BC ==
[2024-10-13 14:22] VITALS: BP 134/62; PULSE 86
[2024-10-13 15:13] LABS: BLOOD UREA NITROGEN,BUN 15 mg/dL (7-18); BUN/CREATININE RATIO 13.6 (9-20); CALCIUM 9.4 mg/dL (8.6-10.2); CARBON DIOXIDE,CO2 27 mmol/L (21-32); CHLORIDE,CL 104 mmol/L (100-110); CREATININE 1.1 mg/dL (0.55-1.02); ESTIMATED GFR 48 mL/min (>60); GLUCOSE RANDOM 163 mg/dL (80-116); POTASSIUM,K 4.3 mmol/L (3.5-5.3); SODIUM,NA 142 mmol/L (135-145)
[2024-10-13 15:18] LABS: A/G RATIO 0.9; ALANINE AMINOTRANSFERASE,ALT 25 U/L (12-36); ALBUMIN 3.3 g/dL (3.2-4.6); ALKALINE PHOSPHATASE 127 IU/L (56-112); ASPARTATE AMNIOTRANSFERASE,AST 16 IU/L (5-25); BILIRUBIN TOTAL 0.6 mg/dL (0.1-1.3); PROTEIN TOTAL,TP 7.1 g/dL (6.0-8.0)
[2024-10-13 15:22] LABS: BASOPHILS PERCENT AUTO 0.3 % (0.2-1.5); EOSINOPHILS ABSOLUTE AUTO 0.2 x10-3/uL (0.0-0.8); EOSINOPHILS PERCENT AUTO 2.5 % (0.6-8.1); HEMATOCRIT 44.1 % (34.2-48.2); LYMPHOCYTES ABSOLUTE AUTO 1.9 x10-3/uL (1.0-4.4); LYMPHOCYTES PERCENT AUTO 18.6 % (18.4-52.1); MEAN CORPUSCULAR HGB CONC 31.6 g/dL (31.9-34.8); MEAN PLATELET VOLUME 8.4 fL (7.1-12.4); MONOCYTES ABSOLUTE AUTO 0.9 x10-3/uL (0.3-1.0); NEUTROPHILS ABSOLUTE AUTO 6.9 x10-3/uL (1.5-6.3); NEUTROPHILS PERCENT AUTO 69.7 % (30.8-76.2); PLATELET COUNT,PLT 266 x10(3)uL (151-488); RED CELL DISTRIBUTION WIDTH 14.2 % (12.3-16.5)
[2024-10-13 15:22] LABS: LACTIC ACID 1.5 mmol/L (0.4-2.0)
[2024-10-13 15:39] LABS: INFLUENZA A NAA NEGATIVE (NEGATIVE); INFLUENZA B NAA NEGATIVE (NEGATIVE); RESPIRATORY SYNCYTIAL VIR NAA NEGATIVE (NEGATIVE)
[2024-10-13 15:41] LABS: CORONAVIRUS COVID-19 NAA NEGATIVE (NEGATIVE)
[2024-10-13] MEDS: Furosemide 40 MG/4 ML VIAL IVPUSH ONE (16:21)
[2024-10-13] MEDS: Sodium Chloride 0.9% 10 ML Syringe FLUSH PRN (16:22)
[2024-10-13 17:33] LABS: BILIRUBIN,URINE NEGATIVE (NEGATIVE); GLUCOSE,URINE >1000 mg/dL (NORMAL); KETONES,URINE NEGATIVE (NEGATIVE); LEUKOCYTE ESTERASE,URINE MODERATE (NEGATIVE); NITRITE,URINE NEGATIVE (NEGATIVE); OCCULT BLOOD,URINE LARGE (NEGATIVE); PROTEIN,URINE NEGATIVE (NEGATIVE); UROBILINOGEN,URINE NORMAL (NEGATIVE)
[2024-10-13 17:34] LABS: APPEARANCE,URINE SLIGHTLY CLOUDY (CLEAR); COLOR,URINE YELLOW (YELLOW)
[2024-10-13 17:44] LABS: BACTERIA,URINE MANY (NS); SQUAMOUS EPITHELIAL CELLS,UR FEW (NS,R,O); WBC,URINE 75-100 (0-5)
[2024-10-13] MEDS: Ciprofloxacin 500 MG Tab PO ONE (17:57)
== END 2024-10-13 18:20 ==
LOC: FB.ED 13:59
DX: I67.9 Cerebrovascular disease, unspecified (principal); B37.49 Other urogenital candidiasis; I10 Essential (primary) hypertension; I48.91 Unspecified atrial fibrillation; K21.9 Gastro-esophageal reflux disease without esophagitis; E11.9 Type 2 diabetes mellitus without complications; E03.9 Hypothyroidism, unspecified; Z79.84 Long term (current) use of oral hypoglycemic drugs; Z79.899 Other long term (current) drug therapy; Z79.01 Long term (current) use of anticoagulants; Z91.041 Radiographic dye allergy status; Z88.2 Allergy status to sulfonamides
CPT/HCPCS: 0241U; 36415; 70450; 71045; 80053; 81001; 83605; 83735; 83880; 85025; 86140; 87086; 93005; 96374; 99285; A9270; C1758; J1940

== ENCOUNTER 2025-02-07 18:28 | Emergency (ER) | payer MEDICARE, BC ==
[2025-02-07 18:32] VITALS: BP 154/57; PULSE 87
[2025-02-07] MEDS ORDERED: Sodium Chloride 0.9% 10 ML Syringe FLUSH PRN (18:37)
[2025-02-07 19:09] LABS: HEMATOCRIT 36.7 % (34.2-48.2); HEMOGLOBIN 12.6 g/dL (11.4-15.5); MEAN CORPUSCULAR HEMOGLOBIN 31.1 pg (23.9-33.9); MEAN CORPUSCULAR HGB CONC 34.2 g/dL (31.9-34.8); MEAN CORPUSCULAR VOLUME 90.9 fL (76.7-100.5); MEAN PLATELET VOLUME 8.1 fL (7.1-12.4); PLATELET COUNT,PLT 213 x10(3)uL (151-488); RED BLOOD CELL COUNT 4.03 x10(6)uL (3.60-5.20); RED CELL DISTRIBUTION WIDTH 14.9 % (12.3-16.5); WHITE BLOOD CELL COUNT,WBC 15.7 x10-3/uL (3.0-10.3)
[2025-02-07 19:15] LABS: BAND PERCENT MAN 4 % (0-6); LYMPHOCYTES PERCENT MAN 11 % (13-37); MONOCYTES PERCENT MAN 6 % (4-12); SEG NEUTROPHILS PERCENT MAN 79 % (46-82)
[2025-02-07 19:19] LABS: PROTHROMBIN TIME 28.5 sec (9.0-11.1)
[2025-02-07 19:20] LABS: BLOOD UREA NITROGEN,BUN 26 mg/dL (7-18); BUN/CREATININE RATIO 18.6 (9-20); CALCIUM 8.6 mg/dL (8.6-10.2); CARBON DIOXIDE,CO2 28 mmol/L (21-32); CHLORIDE,CL 101 mmol/L (100-110); CREATININE 1.4 mg/dL (0.55-1.02); ESTIMATED GFR 36 mL/min (>60); GLUCOSE RANDOM 204 mg/dL (80-116); POTASSIUM,K 4.2 mmol/L (3.5-5.3); SODIUM,NA 136 mmol/L (135-145)
[2025-02-07 19:26] LABS: A/G RATIO 0.9; ALANINE AMINOTRANSFERASE,ALT 23 U/L (12-36); ALBUMIN 3.1 g/dL (2.9-4.5); ALKALINE PHOSPHATASE 107 IU/L (56-112); ASPARTATE AMNIOTRANSFERASE,AST 29 IU/L (5-25); BILIRUBIN TOTAL 1.1 mg/dL (0.1-1.3); PROTEIN TOTAL,TP 6.7 g/dL (6.0-8.0)
[2025-02-07] MEDS: Acetaminophen 500 MG Tab PO ONE ×2 (19:28→21:04)
[2025-02-07] MEDS: Sodium Chloride 0.9% 1,000 ML IV SCH (19:28)
[2025-02-07 19:31] LABS: C-REACTIVE PROTEIN 11.5 mg/dL (<0.50)
[2025-02-07 20:36] LABS: BILIRUBIN,URINE NEGATIVE (NEGATIVE); GLUCOSE,URINE 50 mg/dL (NORMAL); KETONES,URINE NEGATIVE (NEGATIVE); LEUKOCYTE ESTERASE,URINE NEGATIVE (NEGATIVE); NITRITE,URINE NEGATIVE (NEGATIVE); OCCULT BLOOD,URINE MODERATE (NEGATIVE); PROTEIN,URINE 30 mg/dL (NEGATIVE); UROBILINOGEN,URINE NORMAL (NEGATIVE)
[2025-02-07 20:39] LABS: APPEARANCE,URINE SLIGHTLY CLOUDY (CLEAR); BACTERIA,URINE OCCASIONAL (NS); COLOR,URINE YELLOW (YELLOW); SQUAMOUS EPITHELIAL CELLS,UR FEW (NS,R,O); WBC,URINE 0-5 (0-5)
[2025-02-07 21:01] LABS: LACTIC ACID 1.4 mmol/L (0.4-2.0)
[2025-02-07] MEDS ORDERED: cefTRIAXone 1 GM in Sodium Chloride 0.9% 50 ML IV ONE (21:13)
[2025-02-07] MEDS: cefTRIAXone 1 GM Vial IVPUSH SCH (21:28)
== END 2025-02-08 02:05 ==
LOC: FB.ED 18:28
DX: R50.9 Fever, unspecified (principal); I48.0 Paroxysmal atrial fibrillation; I11.0 Hypertensive heart disease with heart failure; I50.9 Heart failure, unspecified; K21.9 Gastro-esophageal reflux disease without esophagitis; E11.9 Type 2 diabetes mellitus without complications; E03.9 Hypothyroidism, unspecified; Z88.2 Allergy status to sulfonamides; Z91.041 Radiographic dye allergy status; Z79.890 Hormone replacement therapy; Z79.84 Long term (current) use of oral hypoglycemic drugs; Z79.01 Long term (current) use of anticoagulants; Z79.899 Other long term (current) drug therapy; Z90.49 Acquired absence of other specified parts of digestive tract
CPT/HCPCS: 36415; 51702; 71045; 80053; 81001; 83605; 83880; 85025; 85610; 86140; 87040; 87077; 87086; 87186; 87426; 96361; 96374; 99284; 99285; A9270; J0696; J7030

== ENCOUNTER 2025-02-08 10:09 | Inpatient (IN) | payer MEDICARE, BC ==
[2025-02-08] MEDS ORDERED: Ondansetron 4 MG/2 ML SDV IV PRN (10:13)
[2025-02-08] MEDS ORDERED: 50% Dextrose in Water 50 ML Syringe IVPUSH PRN (10:23)
[2025-02-08] MEDS ORDERED: Glucagon,Human Recombinant 1 MG Vial IM PRN (10:23)
[2025-02-08] MEDS ORDERED: Warfarin Sliding Scale PO SCH (10:30)
[2025-02-08 10:37] LABS: HEMATOCRIT 34.5 % (34.2-48.2); HEMOGLOBIN 11.7 g/dL (11.4-15.5); MEAN CORPUSCULAR HEMOGLOBIN 30.8 pg (23.9-33.9); MEAN CORPUSCULAR HGB CONC 33.9 g/dL (31.9-34.8); MEAN PLATELET VOLUME 8.2 fL (7.1-12.4); PLATELET COUNT,PLT 188 x10(3)uL (151-488); RED BLOOD CELL COUNT 3.79 x10(6)uL (3.60-5.20); RED CELL DISTRIBUTION WIDTH 14.8 % (12.3-16.5); WHITE BLOOD CELL COUNT,WBC 21.5 x10-3/uL (3.0-10.3)
[2025-02-08 10:44] LABS: BLOOD UREA NITROGEN,BUN 30 mg/dL (7-18); CALCIUM 8.1 mg/dL (8.6-10.2); CARBON DIOXIDE,CO2 25 mmol/L (21-32); CHLORIDE,CL 102 mmol/L (100-110); CREATININE 1.5 mg/dL (0.55-1.02); ESTIMATED GFR 33 mL/min (>60); GLUCOSE RANDOM 258 mg/dL (80-116); POTASSIUM,K 3.6 mmol/L (3.5-5.3); SODIUM,NA 135 mmol/L (135-145)
[2025-02-08 10:48] LABS: BAND PERCENT MAN 6 % (0-6); LYMPHOCYTES PERCENT MAN 9 % (13-37); MONOCYTES PERCENT MAN 4 % (4-12); SEG NEUTROPHILS PERCENT MAN 81 % (46-82)
[2025-02-08] MEDS: Sodium Chloride 0.9% 1,000 ML IV SCH (10:48)
[2025-02-08 10:50] LABS: A/G RATIO 0.7; ALANINE AMINOTRANSFERASE,ALT 18 U/L (12-36); ALBUMIN 2.6 g/dL (2.9-4.5); ALKALINE PHOSPHATASE 104 IU/L (56-112); ASPARTATE AMNIOTRANSFERASE,AST 21 IU/L (5-25); BILIRUBIN TOTAL 0.9 mg/dL (0.1-1.3); PROTEIN TOTAL,TP 6.2 g/dL (6.0-8.0)
[2025-02-08 10:58] LABS: LACTIC ACID 3.3 mmol/L (0.4-2.0)
[2025-02-08] MEDS ORDERED: VANCOmycin 1 GM SDV IV SCH (11:00)
[2025-02-08] MEDS: VANCOmycin 1.5 GM/300 ML 1.5 GM in Premix Bag 1 BAG IV ONE (11:07)
[2025-02-08 11:23] LABS: INR 3.4 (1.00-1.24); PROTHROMBIN TIME 31.9 sec (9.0-11.1)
[2025-02-08] MEDS: Insulin Lispro 100 Unit/ML 3 ML KwikPen SUBCUT SCH (12:27)
[2025-02-08] MEDS: Enoxaparin 30 MG/0.3 ML Syringe SUBCUT SCH (13:38)
[2025-02-08] MEDS: Saccharomyces Boulardii (Probiotic) 250 MG Cap PO SCH (21:37)
[2025-02-08] MEDS: cefTRIAXone 1 GM Vial IVPUSH SCH (21:38)
[2025-02-09] MEDS: Furosemide 20 MG/2 ML VIAL IVPUSH ONE (05:37)
[2025-02-09] MEDS: Sodium Chloride 0.9% 1,000 ML IV SCH (05:45)
[2025-02-09 06:28] LABS: BASOPHILS ABSOLUTE AUTO 0.1 x10-3/uL (0.0-0.1); BASOPHILS PERCENT AUTO 0.5 % (0.2-1.5); EOSINOPHILS ABSOLUTE AUTO 0.2 x10-3/uL (0.0-0.8); EOSINOPHILS PERCENT AUTO 1.6 % (0.6-8.1); HEMATOCRIT 33.8 % (34.2-48.2); HEMOGLOBIN 11.4 g/dL (11.4-15.5); LYMPHOCYTES PERCENT AUTO 7.9 % (18.4-52.1); MEAN CORPUSCULAR HEMOGLOBIN 31.1 pg (23.9-33.9); MEAN CORPUSCULAR HGB CONC 33.9 g/dL (31.9-34.8); MEAN CORPUSCULAR VOLUME 91.9 fL (76.7-100.5); MEAN PLATELET VOLUME 8.5 fL (7.1-12.4); MONOCYTES PERCENT AUTO 7.8 % (4.4-15.7); NEUTROPHILS ABSOLUTE AUTO 10.7 x10-3/uL (1.5-6.3); NEUTROPHILS PERCENT AUTO 82.2 % (30.8-76.2); PLATELET COUNT,PLT 198 x10(3)uL (151-488); RED BLOOD CELL COUNT 3.68 x10(6)uL (3.60-5.20); RED CELL DISTRIBUTION WIDTH 15.1 % (12.3-16.5)
[2025-02-09 06:38] LABS: INR 2.5 (1.00-1.24); PROTHROMBIN TIME 24.1 sec (9.0-11.1)
[2025-02-09 06:40] LABS: A/G RATIO 0.7; ALANINE AMINOTRANSFERASE,ALT 18 U/L (12-36); ALBUMIN 2.6 g/dL (2.9-4.5); ALKALINE PHOSPHATASE 124 IU/L (56-112); ASPARTATE AMNIOTRANSFERASE,AST 17 IU/L (5-25); BILIRUBIN TOTAL 0.7 mg/dL (0.1-1.3); BLOOD UREA NITROGEN,BUN 28 mg/dL (7-18); BUN/CREATININE RATIO 21.5 (9-20); CALCIUM 7.8 mg/dL (8.6-10.2); CARBON DIOXIDE,CO2 25 mmol/L (21-32); CHLORIDE,CL 105 mmol/L (100-110); CREATININE 1.3 mg/dL (0.55-1.02); EST CRCL DRUG DOSING (CG) 27.46 mL/min; ESTIMATED GFR 39 mL/min (>60); GLUCOSE RANDOM 166 mg/dL (80-116); POTASSIUM,K 3.7 mmol/L (3.5-5.3); PROTEIN TOTAL,TP 6.3 g/dL (6.0-8.0); SODIUM,NA 138 mmol/L (135-145)
[2025-02-09] MEDS ORDERED: Magnesium Hydroxide 400 MG/5 ML Susp 30 ML Cup PO PRN (09:10)
[2025-02-09] MEDS ORDERED: guaiFENesin 100 MG/5 ML Soln 5 ML UD Cup PO PRN (09:10)
[2025-02-09] MEDS ORDERED: Sennosides/Docusate Sodium 50-8.6 MG Tab PO PRN (09:10)
[2025-02-09] MEDS: Furosemide 20 MG Tab PO SCH (09:46)
[2025-02-09] MEDS: Warfarin 2.5 MG Tab PO SCH ×2 (10:24→16:15)
[2025-02-09] MEDS: VANCOmycin 1 GM/200 ML 1 GM in Premix Bag 1 BAG IV ONE (11:45)
[2025-02-09] MEDS: Psyllium 0.52 GM Cap PO SCH (11:51)
[2025-02-09] MEDS: Cyanocobalamin (Vitamin B12) 1,000 MCG Tab PO SCH (21:20)
[2025-02-10] MEDS: Acetaminophen 325 MG Tab PO PRN (03:18)
[2025-02-10 06:35] LABS: BASOPHILS PERCENT AUTO 0.5 % (0.2-1.5); EOSINOPHILS ABSOLUTE AUTO 0.4 x10-3/uL (0.0-0.8); EOSINOPHILS PERCENT AUTO 4.4 % (0.6-8.1); HEMATOCRIT 31.2 % (34.2-48.2); HEMOGLOBIN 10.8 g/dL (11.4-15.5); LYMPHOCYTES ABSOLUTE AUTO 1.3 x10-3/uL (1.0-4.4); MEAN CORPUSCULAR HEMOGLOBIN 31.4 pg (23.9-33.9); MEAN CORPUSCULAR HGB CONC 34.5 g/dL (31.9-34.8); MEAN PLATELET VOLUME 8.4 fL (7.1-12.4); MONOCYTES ABSOLUTE AUTO 0.8 x10-3/uL (0.3-1.0); MONOCYTES PERCENT AUTO 9.4 % (4.4-15.7); NEUTROPHILS ABSOLUTE AUTO 6.2 x10-3/uL (1.5-6.3); NEUTROPHILS PERCENT AUTO 70.7 % (30.8-76.2); PLATELET COUNT,PLT 199 x10(3)uL (151-488); RED BLOOD CELL COUNT 3.43 x10(6)uL (3.60-5.20); RED CELL DISTRIBUTION WIDTH 14.7 % (12.3-16.5); WHITE BLOOD CELL COUNT,WBC 8.7 x10-3/uL (3.0-10.3)
[2025-02-10 06:41] LABS: BLOOD UREA NITROGEN,BUN 22 mg/dL (7-18); CALCIUM 7.5 mg/dL (8.6-10.2); CARBON DIOXIDE,CO2 26 mmol/L (21-32); CHLORIDE,CL 106 mmol/L (100-110); CREATININE 1.1 mg/dL (0.55-1.02); EST CRCL DRUG DOSING (CG) 32.46 mL/min; ESTIMATED GFR 48 mL/min (>60); GLUCOSE RANDOM 159 mg/dL (80-116); POTASSIUM,K 3.3 mmol/L (3.5-5.3); SODIUM,NA 139 mmol/L (135-145)
[2025-02-10 06:46] LABS: INR 1.85 (1.00-1.24); PROTHROMBIN TIME 18.3 sec (9.0-11.1)
[2025-02-10] MEDS: Levothyroxine 50 MCG Tab PO SCH (06:52)
[2025-02-10] MEDS: Diltiazem 120 MG Cap.CD PO SCH (09:26)
[2025-02-10] MEDS: metFORMIN 1,000 MG Tab PO SCH (09:26)
[2025-02-10] MEDS: Potassium Chloride 20 MEQ Tab.ER PO SCH (09:26)
[2025-02-10] MEDS: VANCOmycin 1 GM/200 ML 1 GM in Premix Bag 1 BAG IV ONE (09:31)
[2025-02-10] MEDS: Sodium Chloride 0.9% 10 ML Syringe FLUSH PRN (09:35)
[2025-02-10] MEDS ORDERED: VANCOmycin 750 MG in Sodium Chloride 0.9% 250 ML IV SCH (11:00)
[2025-02-10] MEDS: Famotidine 20 MG Tab PO ONE (11:33)
[2025-02-10] MEDS: Warfarin** 1 MG TABLET PO ONE (16:25)
[2025-02-11] MEDS: Levothyroxine 50 MCG Tab PO SCH (06:37)
[2025-02-11 07:01] LABS: BASOPHILS ABSOLUTE AUTO 0.1 x10-3/uL (0.0-0.1); BASOPHILS PERCENT AUTO 1.1 % (0.2-1.5); EOSINOPHILS ABSOLUTE AUTO 0.3 x10-3/uL (0.0-0.8); EOSINOPHILS PERCENT AUTO 4.2 % (0.6-8.1); HEMATOCRIT 34.3 % (34.2-48.2); HEMOGLOBIN 11.9 g/dL (11.4-15.5); LYMPHOCYTES ABSOLUTE AUTO 1.7 x10-3/uL (1.0-4.4); LYMPHOCYTES PERCENT AUTO 20.2 % (18.4-52.1); MEAN CORPUSCULAR HEMOGLOBIN 31.5 pg (23.9-33.9); MEAN CORPUSCULAR HGB CONC 34.8 g/dL (31.9-34.8); MEAN CORPUSCULAR VOLUME 90.6 fL (76.7-100.5); MEAN PLATELET VOLUME 8.6 fL (7.1-12.4); MONOCYTES ABSOLUTE AUTO 0.8 x10-3/uL (0.3-1.0); MONOCYTES PERCENT AUTO 9.2 % (4.4-15.7); NEUTROPHILS ABSOLUTE AUTO 5.4 x10-3/uL (1.5-6.3); NEUTROPHILS PERCENT AUTO 65.3 % (30.8-76.2); PLATELET COUNT,PLT 251 x10(3)uL (151-488); RED BLOOD CELL COUNT 3.78 x10(6)uL (3.60-5.20); WHITE BLOOD CELL COUNT,WBC 8.2 x10-3/uL (3.0-10.3)
[2025-02-11 07:06] LABS: BLOOD UREA NITROGEN,BUN 15 mg/dL (7-18); CALCIUM 7.9 mg/dL (8.6-10.2); CARBON DIOXIDE,CO2 25 mmol/L (21-32); CHLORIDE,CL 106 mmol/L (100-110); ESTIMATED GFR 54 mL/min (>60); GLUCOSE RANDOM 136 mg/dL (80-116); POTASSIUM,K 3.5 mmol/L (3.5-5.3); SODIUM,NA 140 mmol/L (135-145)
[2025-02-11 07:11] LABS: INR 2.36 (1.00-1.24); PROTHROMBIN TIME 22.9 sec (9.0-11.1)
[2025-02-11] MEDS ORDERED: Warfarin 2.5 MG Tab PO SCH (09:10)
[2025-02-11] MEDS: VANCOmycin 1 GM/200 ML 1 GM in Premix Bag 1 BAG IV SCH (11:12)
[2025-02-11] MEDS: Famotidine 20 MG Tab PO SCH (11:18)
[2025-02-11] MEDS: Carboxymethylcellulose Sodium 1% Ophth Gel 0.4 ML UD Box of 30 EYEBOTH SCH (12:58)
[2025-02-11] MEDS: Warfarin 2.5 MG Tab PO ONE (15:56)
[2025-02-11] MEDS: Magnesium Oxide 400 MG Tab PO SCH (20:26)
[2025-02-12 06:37] LABS: BASOPHILS ABSOLUTE AUTO 0.1 x10-3/uL (0.0-0.1); BASOPHILS PERCENT AUTO 0.8 % (0.2-1.5); EOSINOPHILS ABSOLUTE AUTO 0.4 x10-3/uL (0.0-0.8); EOSINOPHILS PERCENT AUTO 4.8 % (0.6-8.1); HEMATOCRIT 32.8 % (34.2-48.2); HEMOGLOBIN 11.4 g/dL (11.4-15.5); LYMPHOCYTES ABSOLUTE AUTO 1.2 x10-3/uL (1.0-4.4); LYMPHOCYTES PERCENT AUTO 15.9 % (18.4-52.1); MEAN CORPUSCULAR HEMOGLOBIN 31.3 pg (23.9-33.9); MEAN CORPUSCULAR HGB CONC 34.6 g/dL (31.9-34.8); MEAN CORPUSCULAR VOLUME 90.5 fL (76.7-100.5); MEAN PLATELET VOLUME 7.9 fL (7.1-12.4); MONOCYTES ABSOLUTE AUTO 0.8 x10-3/uL (0.3-1.0); MONOCYTES PERCENT AUTO 9.9 % (4.4-15.7); NEUTROPHILS ABSOLUTE AUTO 5.3 x10-3/uL (1.5-6.3); NEUTROPHILS PERCENT AUTO 68.6 % (30.8-76.2); PLATELET COUNT,PLT 251 x10(3)uL (151-488); RED BLOOD CELL COUNT 3.63 x10(6)uL (3.60-5.20); RED CELL DISTRIBUTION WIDTH 14.7 % (12.3-16.5); WHITE BLOOD CELL COUNT,WBC 7.8 x10-3/uL (3.0-10.3)
[2025-02-12 06:45] LABS: INR 3.25 (1.00-1.24); PROTHROMBIN TIME 30.7 sec (9.0-11.1)
[2025-02-12 10:25] VITALS: BP 131/68; PULSE 63
== END 2025-02-12 10:15 | DRG 871 ==
LOC: FB.MS 10:09
PROVIDERS: ADMIT Family Medicine; ATTEND Family Medicine
DX: A40.1 Sepsis due to streptococcus, group B (principal); J18.9 Pneumonia, unspecified organism; I48.19 Other persistent atrial fibrillation; Z66 Do not resuscitate; E11.9 Type 2 diabetes mellitus without complications; I10 Essential (primary) hypertension; H26.9 Unspecified cataract; J45.909 Unspecified asthma, uncomplicated; K21.9 Gastro-esophageal reflux disease without esophagitis; M54.9 Dorsalgia, unspecified; G89.29 Other chronic pain; M54.2 Cervicalgia; G43.909 Migraine, unspecified, not intractable, without status migrainosus; F32.A Depression, unspecified; E83.42 Hypomagnesemia; E03.9 Hypothyroidism, unspecified; E66.9 Obesity, unspecified; D50.9 Iron deficiency anemia, unspecified; Z90.49 Acquired absence of other specified parts of digestive tract; Z88.8 Allergy status to other drugs, medicaments and biological substances; Z96.651 Presence of right artificial knee joint; Z79.84 Long term (current) use of oral hypoglycemic drugs; Z79.899 Other long term (current) drug therapy; Z68.31 Body mass index [BMI] 31.0-31.9, adult; Z86.73 Personal history of transient ischemic attack (TIA), and cerebral infarction without residual deficits; Z88.2 Allergy status to sulfonamides; Z79.01 Long term (current) use of anticoagulants; Z98.890 Other specified postprocedural states
CPT/HCPCS: 36415; 71046; 80048; 80053; 80202; 82947; 83605; 83880; 85025; 85610; 86140; 87040; 94150; A9270-GY; J0696; J1815; J1938; J3372; J7030